=== PATIENT | female | born 1930 | race Two or more races ===

== ENCOUNTER 2017-07-05 15:05 | Inpatient (IN) | payer MEDICARE ==
[2017-07-05 16:35] LABS: % BASOPHILS 0.3 % (0.0-2.0); % EOSINOPHILS 4.3 % (0.0-5.0); % LYMPHOCYTES 12.5 % (20.0-50.0); % MONOCYTES 8.8 % (2.0-10.0); % NEUTROPHILS 74.1 % (40.0-80.0); EOSINOPHILE ABSOLUTE 0.1 Th/cmm (0.1-0.4); HEMATOCRIT 33.5 % (41.0-60); HEMOGLOBIN 11.3 gm/dL (12-16); LYMPHOCYTE ABSOLUTE 0.4 Th/cmm (1.5-3.0); MEAN CELL VOLUME 92.2 fl (81-100); MEAN CORPUSCULAR HGB CONC 33.6 pg (28.0-36.0); MONOCYTE ABSOLUTE 0.3 Th/cmm (0.3-1.0); NEUTROPHILE ABSOLUTE 2.6 Th/cmm (1.8-8.0); PLATELET COUNT 223 Th/cmm (150-400); RED BLOOD COUNT 3.63 Mil/cmm (3.80-5.20); RED CELL DISTRIBUTION WIDTH 14.6 % (11.5-20.0)
[2017-07-05 16:48] LABS: ALB/GLOB RATIO 0.6 (1.0-1.8); ALBUMIN 2.3 gm/dL (3.7-5.3); ALKALINE PHOSPHATASE 251 U/L (34-104); ANION GAP 9.1 (7.0-16.0); BILIRUBIN,TOTAL 2.6 mg/dL (0.3-1.0); BUN - UREA NITROGEN 14 mg/dL (7-25); CALCIUM SERUM 8.3 mg/dL (8.6-10.3); CARBON DIOXIDE 26.6 mEq/L (21.0-31.0); CHLORIDE 106 mEq/L (98-107); CREATININE - SERUM 0.3 mg/dL (0.6-1.2); GLUCOSE 202 mg/dL (70-105); MAGNESIUM 1.7 mg/dL (1.9-2.7); PHOSPHOROUS 2.7 mg/dL (2.5-5.0); POTASSIUM SERUM 3.7 mEq/L (3.5-5.1); SGOT 52 U/L (13-39); SGPT/ALT 67 U/L (7-52); SODIUM SERUM 138 mEq/L (136-145); TOTAL PROTEIN,SERUM 6.5 gm/dL (6.0-8.3)
[2017-07-05 16:56] LABS: WHITE BLOOD COUNT 3.4 Th/cmm (4.8-10.8)
[2017-07-05] MEDS: Dextrose 10% 1,000 ML IV SCH (17:00)
[2017-07-05 17:01] VITALS: BP 150/60
[2017-07-05 18:03] LABS: PROTHROMBIN TIME (TEST) 10.4 SECONDS (9.5-11.5)
[2017-07-05] MEDS ORDERED: Diatrizoate Meglumine/Diatri 30 mL Sol ONE (21:03)
[2017-07-06] MEDS: Dextrose 10% 1,000 ML IV SCH (06:19)
[2017-07-06 06:38] LABS: EOSINOPHILE ABSOLUTE 0.2 Th/cmm (0.1-0.4); LYMPHOCYTE ABSOLUTE 0.6 Th/cmm (1.5-3.0)
[2017-07-06 06:49] LABS: HEMATOCRIT 30.3 % (41.0-60); MEAN CELL VOLUME 92.3 fl (81-100); MEAN CORPUSCULAR HEMOGLOBIN 30.6 pg (27.0-31.0); MEAN CORPUSCULAR HGB CONC 33.1 pg (28.0-36.0); MEAN PLATELET VOLUME 8.8 fl; PLATELET COUNT 215 Th/cmm (150-400); RED BLOOD COUNT 3.28 Mil/cmm (3.80-5.20); RED CELL DISTRIBUTION WIDTH 14.9 % (11.5-20.0); WHITE BLOOD COUNT 3.7 Th/cmm (4.8-10.8)
[2017-07-06 06:50] LABS: % BASOPHILS 0.8 % (0.0-2.0); % EOSINOPHILS 6.1 % (0.0-5.0); % LYMPHOCYTES 17.4 % (20.0-50.0); % MONOCYTES 9.7 % (2.0-10.0); MONOCYTE ABSOLUTE 0.4 Th/cmm (0.3-1.0); NEUTROPHILE ABSOLUTE 2.5 Th/cmm (1.8-8.0)
[2017-07-06] MEDS ORDERED: INSULIN ASPART SLIDING SCALE 100 UNITS/ML UNIT SUBQ SCH (07:30)
--- NOTE | 2017-07-06 07:33 | Diagnostic Imaging Report ---
Portable chest x-ray HISTORY: Cough, preoperative The right lower chest is obscured by the patient's overlying contracted hand. Increased density noted in left lower hemithorax suggesting probable pleural effusion. Underlying parenchymal pathology including pneumonia and/or atelectasis cannot be excluded. A right-sided vascular catheter tip is in the region of the superior vena cava. The heart appears to be somewhat enlarged. IMPRESSION: 1. Limited exam as the right lower chest is up secured by the patient's overlying contracted hand 2. Increased density in the left lower hemithorax suggesting a pleural effusion. Underlying pneumonia and/or atelectasis cannot be excluded. 3. Cardiomegaly with atherosclerotic vascular changes
--- NOTE | 2017-07-06 07:34 | Diagnostic Imaging Report ---
Portable chest x-ray HISTORY: Shortness of breath, nasogastric tube placement Compared with a prior exam performed earlier in the day (1711 hours), a nasogastric tube extends into the region of the stomach. The right lower chest is again obscured by the patient's overlying hand. The heart remains enlarged. Suggestion of a small left pleural effusion. IMPRESSION: 1. Nasogastric tube extending into the region of the stomach 2. Cardiomegaly without johny vascular changes 3. Evidence for small left pleural effusion 4. Obscuration of the right lower chest related to the patient's overlying contracted hand.
[2017-07-06] MEDS ORDERED: [UNRECOGNIZED DRUG - OTHER] IV SCH (09:15)
[2017-07-06] MEDS ORDERED: VANCOMYCIN HCL IN DEXTROSE 5% IV SCH (09:15)
[2017-07-06 09:55] LABS: ALB/GLOB RATIO 0.5 (1.0-1.8); ALKALINE PHOSPHATASE 214 U/L (34-104); ANION GAP 9.2 (7.0-16.0); BILIRUBIN,TOTAL 1.9 mg/dL (0.3-1.0); BUN - UREA NITROGEN 11 mg/dL (7-25); CHLORIDE 103 mEq/L (98-107); CREATININE - SERUM 0.4 mg/dL (0.6-1.2); GLUCOSE 166 mg/dL (70-105); POTASSIUM SERUM 3.2 mEq/L (3.5-5.1); SGOT 49 U/L (13-39); SGPT/ALT 59 U/L (7-52); SODIUM SERUM 136 mEq/L (136-145); TOTAL PROTEIN,SERUM 5.7 gm/dL (6.0-8.3)
[2017-07-06] MEDS ORDERED: Mag Sulfate 2gm/50mL Premix 2 GM/50 ML BAG IV ONE (10:00)
[2017-07-06] MEDS: Albuterol/Ipratropium Neb 3 ML AERS HHN SCH ×3 (10:21→19:30)
[2017-07-06] MEDS ORDERED: Levofloxacin 500mg/100mL 500 MG/100 ML BAG IV ONE (10:40)
[2017-07-06] MEDS ORDERED: Morphine Sulfate 4 mg/mL 1mL Syr IVP PRN (11:00)
[2017-07-06] MEDS ORDERED: Potassium Phosphate 15 MMOLE in Sodium Chloride 0.9% 250 ML IV ONE (11:00)
[2017-07-06] MEDS ORDERED: Propofol **SURGERY USE ONLY** 20 ML IV ONE (11:09)
[2017-07-06] MEDS ORDERED: Morphine Sulfate 2 mg/mL 1mL Syr ONE (11:12)
[2017-07-06] MEDS ORDERED: Neostigmine 10mg/10mL Vial ONE (11:12)
[2017-07-06] MEDS: INSULIN ASPART SLIDING SCALE 100 UNITS/ML UNIT SUBQ SCH ×2 (12:52→18:24)
[2017-07-06] MEDS ORDERED: [UNRECOGNIZED DRUG - OTHER] IV SCH (13:00)
[2017-07-06] MEDS ORDERED: MEROPENEM IV SCH (13:00)
[2017-07-06] MEDS ORDERED: SODIUM CHLORIDE IV SCH (13:00)
[2017-07-06] MEDS: Diltiazem 30 mg Tab GT SCH ×2 (14:24→20:33)
[2017-07-06] MEDS ORDERED: TPN 10%-70% CUSTOM IV SCH (16:00)
[2017-07-06] MEDS: Meropenem 500 MG in Sodium Chloride 0.9% 50 ML IV SCH ×2 (16:24→20:32)
[2017-07-06] MEDS ORDERED: Morphine Sulfate 4 mg/mL 1mL Syr IV ONE (17:59)
[2017-07-06] MEDS ORDERED: Morphine Sulfate 2 mg/mL 1mL Syr IVP PRN (18:02)
[2017-07-07] MEDS: INSULIN ASPART SLIDING SCALE 100 UNITS/ML UNIT SUBQ SCH ×4 (00:24→18:25)
[2017-07-07] MEDS: Morphine Sulfate 4 mg/mL 1mL Syr IV PRN ×2 (00:30→13:17)
--- NOTE | 2017-07-07 01:17 | Consultation ---
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 HISTORY OF PRESENT ILLNESS: The patient is an 87-year-old female with a past medical history of severe dementia, bedbound status, atrial fibrillation, hypertension, hyperlipidemia, CHF, COPD, diabetes mellitus type 2, dysphagia, bilateral foot ulcers, worse on the left side with diagnosis of osteomyelitis, debrided by Dr. Leonard, infection with MRSA and ESBL E. coli, schizoaffective disorder, and hypertension, initially admitted to [facility] for a malfunctioning G-tube with leakage. There was some surrounding erythema. G-tube was removed and there was no surrounding erythema. G-tube site was removed and treated conservatively with antibiotics. Ultimately, the patient was put on TPN. After a long period of time, the patient's gastrocutaneous fistula was not healing well. She required long-term antibiotic because of osteomyelitis of left foot and TPN for a gastrocutaneous fistula. So she was transferred to [facility] on 06/30/2017. Unfortunately, she bled from the gastrocutaneous site profusely. There were some clots present. She required [facility] for surgical consultation. I discussed with Dr. Vazquez, surgical lead at [facility] and we agreed to transfer the patient to [facility]. PAST MEDICAL HISTORY: Includes bedbound status, atrial fibrillation, hypertension, hyperlipidemia, schizoaffective disorder, CHF, COPD, diabetes mellitus type 2, dysphagia, bilateral foot ulcers was on the left side and osteomyelitis of left foot, diagnosed recently infection with MRSA and ESBL E. coli. ALLERGIES: ALLERGIC TO ASPIRIN. MEDICATIONS: As per medication reconciliation sheet. Medications include digoxin 0.125 mg IV push daily, diltiazem 60 mg, enoxaparin 30 mg subq, Lasix 20 mg IV twice a day, albuterol, Atrovent nebulizer treatment, meropenem 500 mg IV q. 12 hours, lisinopril 10 mg IV via feeding tube, metoclopramide 10 mg via G-tube 8 hourly, and vancomycin 750 mg IV q. 12 hours. SOCIAL HISTORY: The patient lives in a nursing facility. No history of smoking, alcohol, or drug use. FAMILY HISTORY: Not available. REVIEW OF SYSTEMS: Unable to obtain. So far the patient has no fever. The patient has blood-stained drainage from the gastrocutaneous fistula. PHYSICAL EXAMINATION: VITAL SIGNS: Current vital shows temperature is 97.8 degrees Fahrenheit, pulse 78, respirations 22, blood pressure 110/60, and oxygen saturation 100% on room air. GENERAL: The patient is comfortable, lying in the bed with some flexion contractures. Very demented, unable to communicate. HEENT: Head is normocephalic, atraumatic. Oral cavity moist, pink tongue. Eyes: Mild pallor is present, no icterus. Pupils PERRLA, EOMI. NECK: Supple, no JVD, no carotid bruit. Trachea in midline. CHEST: Bilateral breath sounds. No crackles or wheezing. HEART: S1, S2 within normal limit. Regular rhythm. No murmur, no gallop. ABDOMEN: Soft, nontender, nondistended. The patient had a G-tube site, has some blood-stained drainage. It is better than before. It is already packed. There is some surrounding erythema and discoloration. EXTREMITIES: No cyanosis, no clubbing, no edema. The patient has foot ulcers, worse on the left side and on the left side the patient has a full thickness ulcer. NEUROLOGIC: Opens her eyes, but unable to communicate. SKIN: The patient has bilateral foot ulcers, worse on the left side. Full thickness ulcer. The patient also has multiple ulcers down the left elbow and right hallus. LABORATORY DATA: Current lab shows WBC of 3700, hemoglobin 10, hematocrit 30.3, platelets are 215,000, and neutrophils 66%. Sodium is 138, potassium 3.7, chloride 106, bicarbonate is 26.6, BUN is 14, creatinine 0.3, glucose is 202. LFTs reviewed. AST is 52, ALT 67, alkaline phosphatase 251. Chest x-ray, NG tube into the region of the stomach. Cardiomegaly without any vascular congestion, evidence of small left pleural effusion, ____ on left lower chest related to the patient's overlying contracted hand. IMPRESSION: 1. 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 It was profuse. Now well-controlled. 2. Osteomyelitis and complicated wound of the left heel and foot. 3. Bilateral foot ulcers. 4. 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 5. Urinary tract infection. 6. Hypertension. 7. Diabetes mellitus type 2. 8. Severe dementia. 9. Chronic obstructive pulmonary disease. 10. Congestive failure, cardiomegaly, cardiomyopathy, and atrial fibrillation. 11. Depression. 12. Schizoaffective disorder. 13. Gastroesophageal reflux disease. 14. Seizure disorder. 15. History of cataract. RECOMMENDATIONS: We are planning to close the fistula and put a new G-tube site, which can be performed under general anesthesia by surgical lead Dr. Vazquez. The other consultants will be called, Jewel Bagley, Cardiology for Afib, CHF, and cardiomyopathy. Dr. Tolentino, GI consult for dysphagia and need for G-tube, and Dr. Jean-Claude Nelson for Family Medicine. JOB# [id number] JUAN M
[2017-07-07] MEDS: Albuterol Nebulizer 2.5mg/3mL HHN SCH ×4 (01:46→18:22)
--- NOTE | 2017-07-07 01:46 | Consultation ---
DATE OF CONSULTATION: 07/06/2017 HISTORY OF PRESENT ILLNESS: This 87-year-old female was seen and examined. This patient was transferred here from [facility] with GI bleeding. The patient was admitted there with osteomyelitis uncomplicated wound on left heel and foot, bilateral foot ulcers, diabetes, peripheral vascular disease, urinary tract infection, atrial fibrillation, congestive heart failure, history of cardiomyopathy, cardiomegaly, diabetes, history of seizure disorder. The patient did have here an exploratory laparotomy, control of bleeding, NG-tube placement. PAST MEDICAL HISTORY: Not much available from the patient. REVIEW OF SYSTEMS: Not available from the patient. FAMILY HISTORY: Not available from the patient. PHYSICAL EXAMINATION: VITAL SIGNS: Heart rate was 113, blood pressure 133/69, respirations 24, temperature 98, O2 saturation 100%. SKIN: Normal. HEENT: Normocephalic. Eyes: Conjunctivae was pink. There is no icterus in the eyes: Pupils reacting to light. NECK: There was no increased jugular venous distention, no thyromegaly, no lymphadenopathy. Carotids equal on both sides. CHEST: Bilaterally symmetrical. Moved well with respiration. Respiratory movements equal on both sides. Trachea is central. There is note to percussion. Breath sounds, few basilar rales and rhonchi. CARDIOVASCULAR SYSTEM: PMI not well localized and no pulsation or thrill. No parasternal heave. S1 normal, S2 physiologic. There were no definite S3, no rub. ABDOMEN: Soft postop. EXTREMITIES: There are bilateral foot ulcers. DIAGNOSTIC STUDIES AND LABORATORY DATA: Chest x-ray showed NG in the stomach. Sodium was 136, potassium 3.2, chloride 103, CO2 of 27.0. Glucose 166, BUN 11, creatinine 0.4, calcium 8, total protein 5.7, albumin 2.0, globulin 3.7, bilirubin total 1.9, SGOT 49, SGPT 59, alkaline phosphatase 214, WBC count was 3.7, hemoglobin 10, hematocrit 30.3, platelet count was 215, cholesterol 76, triglycerides 97. EKG had revealed atrial fibrillation. IMPRESSION: Atrial fibrillation with rapid ventricular response, history of congestive heart failure, cardiomegaly, history of cardiomyopathy, hypertension, diabetes type 2, osteomyelitis uncomplicated wound on the left heel and foot, gastrointestinal bleeding, aspiration pneumonia, chronic obstructive pulmonary disease, subcutaneous fistula, urinary tract infection, seizure disorder, dementia, so she will continue present management. When heart rate goes up, we will treat it with Cardizem. Also, she may be put on Lanoxin IV. Thank you. We will follow with you as needed. JOB# [id number]
--- NOTE | 2017-07-07 02:30 | Consultation ---
DATE OF CONSULTATION: 07/06/2017 INPATIENT GASTROINTESTINAL CONSULTATION REFERRING PHYSICIAN: Dr. Caputo. REASON FOR CONSULTATION: G-tube site bleeding. HISTORY OF PRESENT ILLNESS: This is an 87-year-old female who had previously placed G-tube and there was bleeding. The patient is being seen in the recovery room after having surgery to control the bleeding. Apparently, the patient had an exploratory laparotomy with control of bleeding and a new G-tube was placed. The patient again is a poor historian. PAST MEDICAL HISTORY: Dysphagia, hypertension, atrial fibrillation, diabetes, hypercholesterolemia. PAST SURGICAL HISTORY: Exploratory laparotomy G-tube placement. FAMILY HISTORY: Noncontributory. SOCIAL HISTORY: No tobacco, alcohol or IV drug usage. ALLERGIES: ASPIRIN, PENICILLIN. CURRENT MEDICATIONS: Vancomycin, Protonix, Zofran, morphine, Reglan, meropenem, lisinopril, insulin, Lasix, Cardizem, digoxin. REVIEW OF SYSTEMS: Unobtainable. PHYSICAL EXAMINATION: VITAL SIGNS: Temperature 97.8, breathing 22, pulse of 78, blood pressure 110/60, satting 100%. GENERAL: In no apparent distress. EYES: Anicteric. Normal conjunctivae. HEENT: Normocephalic, atraumatic. Moist mucous membranes. NECK: Soft, supple. CHEST: Some coarse breath sounds. CARDIOVASCULAR: Regular rate and rhythm. ABDOMEN: Soft, nontender with an exploratory laparotomy scar and a G-tube. SKIN: Warm, dry. EXTREMITIES: Reveal no cyanosis. LABORATORY DATA: Show white count 3.7, hemoglobin 10, platelets of 215. INR is 1, BUN 11, creatinine 0.4. IMPRESSION: An 87-year-old female with GI bleeding secondary to G-tube site. The patient had exploratory laparotomy and control bleeding along with new G-tube placement. PLAN: 1. Follow H and H. 2. Continue Protonix. Thank you for allowing me to participate. Please call me if any questions. JOB# [id number]
[2017-07-07] MEDS: Diltiazem 30 mg Tab GT SCH ×3 (05:05→21:13)
[2017-07-07] MEDS: Meropenem 500 MG in Sodium Chloride 0.9% 50 ML IV SCH ×3 (05:07→21:26)
[2017-07-07 07:00] LABS: ALB/GLOB RATIO 0.6 (1.0-1.8); ALBUMIN 2.1 gm/dL (3.7-5.3); ALKALINE PHOSPHATASE 188 U/L (34-104); ANION GAP 8.6 (7.0-16.0); BILIRUBIN,TOTAL 1.5 mg/dL (0.3-1.0); BUN - UREA NITROGEN 13 mg/dL (7-25); CALCIUM SERUM 8.1 mg/dL (8.6-10.3); CARBON DIOXIDE 28.6 mEq/L (21.0-31.0); CHLORIDE 101 mEq/L (98-107); CREATININE - SERUM 0.4 mg/dL (0.6-1.2); GLUCOSE 207 mg/dL (70-105); POTASSIUM SERUM 3.2 mEq/L (3.5-5.1); SGOT 35 U/L (13-39); SGPT/ALT 45 U/L (7-52); SODIUM SERUM 135 mEq/L (136-145); TOTAL PROTEIN,SERUM 5.7 gm/dL (6.0-8.3)
[2017-07-07 07:02] LABS: % BASOPHILS 0.3 % (0.0-2.0); % EOSINOPHILS 0.4 % (0.0-5.0); % LYMPHOCYTES 6.7 % (20.0-50.0); % MONOCYTES 4.6 % (2.0-10.0); HEMATOCRIT 31.3 % (41.0-60); HEMOGLOBIN 10.6 gm/dL (12-16); LYMPHOCYTE ABSOLUTE 0.6 Th/cmm (1.5-3.0); MEAN CELL VOLUME 92.6 fl (81-100); MEAN CORPUSCULAR HEMOGLOBIN 31.4 pg (27.0-31.0); MEAN CORPUSCULAR HGB CONC 33.9 pg (28.0-36.0); MEAN PLATELET VOLUME 9.1 fl; MONOCYTE ABSOLUTE 0.4 Th/cmm (0.3-1.0); PLATELET COUNT 242 Th/cmm (150-400); RED BLOOD COUNT 3.38 Mil/cmm (3.80-5.20); RED CELL DISTRIBUTION WIDTH 14.9 % (11.5-20.0)
--- NOTE | 2017-07-07 07:30 | GI Progress Note ---
Subjective - Review of Systems Subjective: NO ACTIVE BLEEDING Objective - Results Result Diagrams: 07/07/17 06:15 07/07/17 06:15 Recent Labs: Laboratory Last Values WBC 9.0 Th/cmm (4.8-10.8) D 07/07/17 06:15 RBC 3.38 Mil/cmm (3.80-5.20) L 07/07/17 06:15 Hgb 10.6 gm/dL (12-16) L 07/07/17 06:15 Hct 31.3 % (41.0-60) L 07/07/17 06:15 MCV 92.6 fl (81-100) 07/07/17 06:15 MCH 31.4 pg (27.0-31.0) H 07/07/17 06:15 MCHC Differential 33.9 pg (28.0-36.0) 07/07/17 06:15 RDW 14.9 % (11.5-20.0) 07/07/17 06:15 Plt Count 242 Th/cmm (150-400) 07/07/17 06:15 MPV 9.1 fl 07/07/17 06:15 Neutrophils % 88.0 % (40.0-80.0) H 07/07/17 06:15 Lymphocytes % 6.7 % (20.0-50.0) L 07/07/17 06:15 Monocytes % 4.6 % (2.0-10.0) 07/07/17 06:15 Eosinophils % 0.4 % (0.0-5.0) 07/07/17 06:15 Basophils % 0.3 % (0.0-2.0) 07/07/17 06:15 PT 10.4 SECONDS (9.5-11.5) 07/05/17 17:15 INR 1.00 (0.5-1.4) 07/05/17 17:15 PTT (Actin FS) 26.6 SECONDS (26.0-38.0) 07/05/17 17:15 Sodium 135 mEq/L (136-145) L 07/07/17 06:15 Potassium 3.2 mEq/L (3.5-5.1) L 07/07/17 06:15 Chloride 101 mEq/L (98-107) 07/07/17 06:15 Carbon Dioxide 28.6 mEq/L (21.0-31.0) 07/07/17 06:15 Anion Gap 8.6 (7.0-16.0) 07/07/17 06:15 BUN 13 mg/dL (7-25) 07/07/17 06:15 Creatinine 0.4 mg/dL (0.6-1.2) L 07/07/17 06:15 Est GFR ( Amer) TNP 07/07/17 06:15 Est GFR (Non-Af Amer) TNP 07/07/17 06:15 BUN/Creatinine Ratio 32.5 07/07/17 06:15 Glucose 207 mg/dL (70-105) H 07/07/17 06:15 POC Glucose 239 MG/DL (70 - 105) H 07/07/17 05:08 Hemoglobin A1c % 5.0 % (4.0-6.0) 07/05/17 16:25 Whole Bld Lactic Acid 1.96 mmol/L (0.60-1.99) 07/07/17 06:15 Calcium 8.1 mg/dL (8.6-10.3) L 07/07/17 06:15 Phosphorus 2.4 mg/dL (2.5-5.0) L 07/06/17 06:30 Magnesium 1.5 mg/dL (1.9-2.7) L 07/06/17 06:30 Total Bilirubin 1.5 mg/dL (0.3-1.0) H 07/07/17 06:15 AST 35 U/L (13-39) 07/07/17 06:15 ALT 45 U/L (7-52) 07/07/17 06:15 Alkaline Phosphatase 188 U/L (34-104) H 07/07/17 06:15 Total Protein 5.7 gm/dL (6.0-8.3) L 07/07/17 06:15 Albumin 2.1 gm/dL (3.7-5.3) L 07/07/17 06:15 Globulin 3.6 gm/dL 07/07/17 06:15 Albumin/Globulin Ratio 0.6 (1.0-1.8) L 07/07/17 06:15 Triglycerides 97 mg/dL (<150) 07/06/17 06:30 Cholesterol 76 mg/dL (<200) 07/06/17 06:30 - Physical Exam Vitals and I&O: Vital Signs Temp 98.4 F 07/07/17 04:00 Pulse 112 07/07/17 06:59 Resp 22 07/07/17 06:59 BP 114/59 07/07/17 04:00 Pulse Ox 99 07/07/17 06:59 Intake & Output 07/06/17 07/07/17 07/07/17 18:59 06:59 18:59 Intake Total 50 100 Output Total 15 Balance 50 85 Weight (lbs) 53.07 kg 56.245 kg Intake: Intake, IV Amount 50 100 Meropenem 500 mg In 50 100 Sodium Chloride 0.9% 50 ml @ 50 mls/hr IV Q8H [facility] Rx#:[id number] Output: Gastric Drainage 15 Other: # Voids 3 # Bowel Movements 0 Weight Source Bedscale Bedscale Active Medications: Current Medications Acetaminophen (Tylenol 650mg/20.3ml Suspension) 650 mg GT Q6HR PRN PRN Reason: Fever > 101 Stop: 09/04/17 09:07 Albuterol Sulfate (Albuterol 2.5mg/3ml Neb Ud) 2.5 mg HHN Q6HRT MAI Stop: 09/05/17 00:59 Last Admin: 07/07/17 06:58 Dose: 2.5 mg [place] Oil/[place] Balsam/Trypsin (Venelex) 1 appl TP DAILY [facility] Stop: 09/05/17 08:59 Digoxin (Lanoxin) 0.125 mg IVP Q48HR MAI Stop: 09/04/17 09:59 Last Admin: 07/06/17 10:55 Dose: Not Given Diltiazem HCl (Cardizem) 60 mg GT Q8HR MAI Stop: 09/04/17 12:59 Last Admin: 07/07/17 05:05 Dose: Not Given Furosemide (Lasix) 20 mg IVP Q12HR MAI Stop: 09/04/17 20:59 Last Admin: 07/06/17 20:31 Dose: 20 mg Vancomycin HCl 750 mg/ Sodium (Chloride) 250 mls @ 167 mls/hr IV Q24HR@0900 [facility] Stop: 09/04/17 09:59 Last Admin: 07/06/17 16:30 Dose: Not Given Meropenem 500 mg/ Sodium (Chloride) 50 mls @ 50 mls/hr IV Q8H MAI Stop: 09/04/17 12:59 Last Infusion: 07/07/17 05:37 Dose: Infused Multivitamins/Minerals 10 ml/Dextrose/ Amino Acids/Electrolytes/ Fat Emulsion Intravenous 1,200 mls @ 50 mls/hr IV .Q24H MAI Stop: 09/04/17 15:59 Last Admin: 07/06/17 16:07 Dose: 50 mls/hr Insulin Aspart (Novolog Insulin Sliding Scale) 0 units SUBQ Q6HR MAI PRN Reason: Protocol Stop: 09/04/17 11:59 Last Admin: 07/07/17 05:10 Dose: 4 units Lisinopril (Zestril) 10 mg GT Q12HR MAI Stop: 09/04/17 20:59 Last Admin: 07/06/17 20:33 Dose: Not Given Metoclopramide HCl (Reglan) 10 mg GT Q8HR MAI Stop: 09/04/17 12:59 Last Admin: 07/07/17 05:09 Dose: Not Given Miscellaneous (Vancomycin Iv Per Pharmacy) 1 ea DAILY MAI Stop: 09/05/17 08:59 Miscellaneous (Tpn Per Pharmacy) 1 [facility] PRN PRN PRN Reason: PROTOCOL Stop: 09/03/17 22:36 Morphine Sulfate (Morphine) 2 mg IV Q6H PRN PRN Reason: pain Stop: 09/04/17 18:01 Last Admin: 07/07/17 00:30 Dose: 2 mg Pantoprazole Sodium (Protonix) 40 mg IVP BID MAI Stop: 09/03/17 21:59 Last Admin: 07/06/17 18:16 Dose: 40 mg - Procedures Procedures: Procedures Procedure Code Date EMERGENCY DEPT VISIT 14545 05/14/11 OTHER GROUP THERAPY 94.44 05/14/11 RECREATIONAL THERAPY 93.81 05/14/11 Assessment/Plan - Assessment Assessment: 87 YO FEMALE WITH DYPHAGIA HAS GT S/P SURGERY FOR GT SITE BLEEDING NO FURTHER BLEEDING 1.FOLLOW H/H 2.CONT POST OP CARE 3.TUBE FEEDS PER SURGEON
[2017-07-07] MEDS ORDERED: Diltiazem 5 mg/mL 5mL Vial IVP PRN (07:53)
[2017-07-07] MEDS ORDERED: Potassium Chloride Elixir 20 mEq /15 mL UDC GT ONE (08:53)
[2017-07-07] MEDS ORDERED: Venelex 60gm Tube TP SCH (09:00)
[2017-07-07] MEDS: Venelex 60gm Tube TP SCH (09:33)
--- NOTE | 2017-07-07 09:41 | Infectious Disease Prog Note ---
Infectious Disease Subjective - Review of Systems Service Date: 07/07/17 Subjective: GC fistula repaired and new Gtube was put in. started on G tube feeding, Infectious Disease Objective - Results Result Diagrams: 07/07/17 06:15 07/07/17 06:15 Recent Labs: Laboratory Last Values WBC 9.0 Th/cmm (4.8-10.8) D 07/07/17 06:15 RBC 3.38 Mil/cmm (3.80-5.20) L 07/07/17 06:15 Hgb 10.6 gm/dL (12-16) L 07/07/17 06:15 Hct 31.3 % (41.0-60) L 07/07/17 06:15 MCV 92.6 fl (81-100) 07/07/17 06:15 MCH 31.4 pg (27.0-31.0) H 07/07/17 06:15 MCHC Differential 33.9 pg (28.0-36.0) 07/07/17 06:15 RDW 14.9 % (11.5-20.0) 07/07/17 06:15 Plt Count 242 Th/cmm (150-400) 07/07/17 06:15 MPV 9.1 fl 07/07/17 06:15 Neutrophils % 88.0 % (40.0-80.0) H 07/07/17 06:15 Lymphocytes % 6.7 % (20.0-50.0) L 07/07/17 06:15 Monocytes % 4.6 % (2.0-10.0) 07/07/17 06:15 Eosinophils % 0.4 % (0.0-5.0) 07/07/17 06:15 Basophils % 0.3 % (0.0-2.0) 07/07/17 06:15 PT 10.4 SECONDS (9.5-11.5) 07/05/17 17:15 INR 1.00 (0.5-1.4) 07/05/17 17:15 PTT (Actin FS) 26.6 SECONDS (26.0-38.0) 07/05/17 17:15 Sodium 135 mEq/L (136-145) L 07/07/17 06:15 Potassium 3.2 mEq/L (3.5-5.1) L 07/07/17 06:15 Chloride 101 mEq/L (98-107) 07/07/17 06:15 Carbon Dioxide 28.6 mEq/L (21.0-31.0) 07/07/17 06:15 Anion Gap 8.6 (7.0-16.0) 07/07/17 06:15 BUN 13 mg/dL (7-25) 07/07/17 06:15 Creatinine 0.4 mg/dL (0.6-1.2) L 07/07/17 06:15 Est GFR ( Amer) TNP 07/07/17 06:15 Est GFR (Non-Af Amer) TNP 07/07/17 06:15 BUN/Creatinine Ratio 32.5 07/07/17 06:15 Glucose 207 mg/dL (70-105) H 07/07/17 06:15 POC Glucose 239 MG/DL (70 - 105) H 07/07/17 05:08 Hemoglobin A1c % 5.0 % (4.0-6.0) 07/05/17 16:25 Whole Bld Lactic Acid 1.96 mmol/L (0.60-1.99) 07/07/17 06:15 Calcium 8.1 mg/dL (8.6-10.3) L 07/07/17 06:15 Phosphorus 2.6 mg/dL (2.5-5.0) 07/07/17 06:15 Magnesium 1.6 mg/dL (1.9-2.7) L 07/07/17 06:15 Total Bilirubin 1.5 mg/dL (0.3-1.0) H 07/07/17 06:15 AST 35 U/L (13-39) 07/07/17 06:15 ALT 45 U/L (7-52) 07/07/17 06:15 Alkaline Phosphatase 188 U/L (34-104) H 07/07/17 06:15 Total Protein 5.7 gm/dL (6.0-8.3) L 07/07/17 06:15 Albumin 2.1 gm/dL (3.7-5.3) L 07/07/17 06:15 Globulin 3.6 gm/dL 07/07/17 06:15 Albumin/Globulin Ratio 0.6 (1.0-1.8) L 07/07/17 06:15 Triglycerides 97 mg/dL (<150) 07/06/17 06:30 Cholesterol 76 mg/dL (<200) 07/06/17 06:30 - Physical Exam Vitals and I&O: Vital Signs Temp 99.9 F 07/07/17 07:51 Pulse 65 07/07/17 09:01 Resp 21 07/07/17 07:51 BP 128/66 07/07/17 09:01 Pulse Ox 100 07/07/17 07:51 Intake & Output 07/06/17 07/07/17 07/07/17 18:59 06:59 18:59 Intake Total 50 100 Output Total 15 Balance 50 85 Weight (lbs) 53.07 kg 56.245 kg Intake: Intake, IV Amount 50 100 Meropenem 500 mg In 50 100 Sodium Chloride 0.9% 50 ml @ 50 mls/hr IV Q8H [facility] Rx#:[id number] Output: Gastric Drainage 15 Other: # Voids 3 # Bowel Movements 0 Weight Source Bedscale Bedscale Active Medications: Current Medications Acetaminophen (Tylenol 650mg/20.3ml Suspension) 650 mg GT Q6HR PRN PRN Reason: Fever > 101 Stop: 09/04/17 09:07 Last Admin: 07/07/17 09:01 Dose: 650 mg Albuterol Sulfate (Albuterol 2.5mg/3ml Neb Ud) 2.5 mg HHN Q6HRT MAI Stop: 09/05/17 00:59 Last Admin: 07/07/17 06:58 Dose: 2.5 mg [place] Oil/Pakistani Balsam/Trypsin (Venelex) 1 appl TP DAILY [facility]I Stop: 09/05/17 08:59 Last Admin: 07/07/17 09:33 Dose: 1 appl Digoxin (Lanoxin) 0.125 mg IVP Q48HR [facility] Stop: 09/04/17 09:59 Last Admin: 07/06/17 10:55 Dose: Not Given Diltiazem HCl (Cardizem) 60 mg GT Q8HR [facility] Stop: 09/04/17 12:59 Last Admin: 07/07/17 05:05 Dose: Not Given Diltiazem HCl (Cardizem) 5 mg IVP Q6H PRN PRN Reason: HR ABOVE 120 Stop: 07/12/17 07:52 Furosemide (Lasix) 20 mg IVP Q12HR [facility] Stop: 09/04/17 20:59 Last Admin: 07/07/17 09:01 Dose: 20 mg Vancomycin HCl 750 mg/ Sodium (Chloride) 250 mls @ 167 mls/hr IV Q24HR@0900 [facility] Stop: 09/04/17 09:59 Last Admin: 07/07/17 09:31 Dose: 167 mls/hr Meropenem 500 mg/ Sodium (Chloride) 50 mls @ 50 mls/hr IV Q8H [facility] Stop: 09/04/17 12:59 Last Infusion: 07/07/17 05:37 Dose: Infused Multivitamins/Minerals 10 ml/Dextrose/ Amino Acids/Electrolytes/ Fat Emulsion Intravenous 1,200 mls @ 50 mls/hr IV .Q24H [facility] Stop: 09/04/17 15:59 Last Admin: 07/06/17 16:07 Dose: 50 mls/hr Magnesium Sulfate (Magnesium Sulfate Premix) 2 gm in 50 mls @ 25 mls/hr IV ONCE ONE Stop: 07/07/17 11:59 Potassium Chloride (Potassium Chloride) 20 meq in 100 mls @ 50 mls/hr IV Q2H [facility] Stop: 07/07/17 13:59 Insulin Aspart (Novolog Insulin Sliding Scale) 0 units SUBQ Q6HR [facility] PRN Reason: Protocol Stop: 09/04/17 11:59 Last Admin: 07/07/17 05:10 Dose: 4 units Lisinopril (Zestril) 10 mg GT Q12HR [facility] Stop: 09/04/17 20:59 Last Admin: 07/07/17 09:01 Dose: 10 mg Metoclopramide HCl (Reglan) 10 mg GT Q8HR [facility] Stop: 09/04/17 12:59 Last Admin: 07/07/17 05:09 Dose: Not Given Miscellaneous (Vancomycin Iv Per Pharmacy) 1 ea MC DAILY [facility] Stop: 09/05/17 08:59 Miscellaneous (Tpn Per Pharmacy) 1 ea [facility] PRN PRN PRN Reason: PROTOCOL Stop: 09/03/17 22:36 Morphine Sulfate (Morphine) 2 mg IV Q6H PRN PRN Reason: pain Stop: 09/04/17 18:01 Last Admin: 07/07/17 00:30 Dose: 2 mg Pantoprazole Sodium (Protonix) 40 mg IVP BID [facility] Stop: 09/03/17 21:59 Last Admin: 07/07/17 09:01 Dose: 40 mg General: no acute distress, well developed, well nourished HEENT: atraumatic, normocephalic, PERRLA, EOMI Neck: supple, no thyromegaly Cardiovascular: S1S2, regular Lungs: clear to auscultation bilaterally, clear to percussion Abdomen: soft, other (G tube.), no tender, no distended Extremities: other (bilateral foot and heel wounds.), no cyanosis, no clubbing, no edema Neurological: other (Open eyes.) - Procedures Procedures: Procedures Procedure Code Date EMERGENCY DEPT VISIT 26307 05/14/11 OTHER GROUP THERAPY 94.44 05/14/11 RECREATIONAL THERAPY 93.81 05/14/11 Infectious Disease Assmt/Plan - Assessment Assessment: 1. 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 New G-tube was placed in. 2. Osteomalacia complicated wound of the left heel and foot. 3. Bilateral foot ulcers. 4. UTI. 5. Up the wall cellulitis. 6. Hypertension. 7. Diabetes mellitus type 2. 8. Severe dementia. 9. COPD. 10. CHF, cardiomyopathy, atrial fibrillation. 11. Depression. 12. Schizoaffective disorder. 13. Gastroesophageal reflux disease. 14. Seizure disorder. 15. History of cataract. - Plan Plan: Continue vancomycin and meropenem. DC plan back to [facility]. Nutritional Asmnt/Malnutr-PDOC - Dietary Evaluation Malnutrition Findings (Please click <Entered> for more info): Nutritional Asmnt/Malnutrition Start: 07/06/17 15: 40 Text: Status: Complete Freq: Document 07/06/17 15:55 LCHENG (Rec: 07/06/17 16:09 LCHEN [email or web address]) Nutritional Asmnt/Malnutrition Patient General Information Nutritional Screening High Risk Diagnosis osteomyelitis, PNA, Gtube infection and fustula Pertinent Medical Hx/Surgical Hx no H&P at this time Subjective Information Pt had Gtube replacement today per nurse note. TPN started this afternoon. Current Diet Order/ Nutrition Support TPN D15% AA5% Lipid 20% 200ml at 50ml/hr Pertinent Medications lasix, novolog, reglan, k phos , vancomycin Pertinent Labs 07/06 K 3.2, Cr 0.4, glucose 166 , POC 172, Ca 8.0 Nutritional Hx/Data Height 1.47 m Height (Calculated Centimeters) 147.3 Current Weight (lbs) 53.07 kg Weight (Calculated Kilograms) 53.1 Weight (Calculated Grams) 95371.3 [place] Body Weight 96 Body Mass Index (BMI) 24.4 Weight Status Approriate GI Symptoms GI Symptoms None Last BM 07/05 Difficult in: None Skin Integrity/Comment: pressure area to buttocks, right foot, decubitus to left foot, reddened to right elbow Current %PO Negligible < 25% Estimated Nutritional Goals BEE in Kcals: Using Current wt Calories/Kcals/Kg 25-30 Kcals Calculated 3605-7211 Protein: Using Current wt Protein g/k-1.2 Protein Calculated 53-63 Fluid: ml 1325-1590ml (1ml/kcal) Nutritional Problem 1. Problem Problem altered nutrition related labs Etiology electrolytes imbalanced, endocrine dysfunction Signs/Symptoms: K 3.2, Cr 0.4, glucose 166, POC 172, Ca 8.0 Intervention/Recommendation Comments 1. Continue with current TPN regimen. It provides 1252kcal, 180g CHO (2.35mg/kg/min) and 60g protein, meeting 95% of calorie needs and 100% of protein needs. 2. If tube feeding needed, RD availeble for consult. 3. Monitor nutrition support, wt, labs and skin integrity 4. F/U high risk in 2 days, 07/08 Expected Outcomes/Goals Expected Outcomes/Goals 1. Pt to meet at least 75% of nutritional needs via nutrition support with tolerance 2. Wt stability, skin to remain intact, labs to approach WNL.
[2017-07-07] MEDS ORDERED: KCL 20mEq/100mL Premix 20 MEQ/100 ML PIGGYBACK IV SCH (10:00)
[2017-07-07] MEDS ORDERED: Mag Sulfate 2gm/50mL Premix 2 GM/50 ML BAG IV ONE (10:00)
--- NOTE | 2017-07-07 12:28 | Consultation ---
DATE OF CONSULTATION: 07/06/2017 SURGICAL CONSULTATION REFERRING PHYSICIAN: Dr. John Caputo. REASON FOR CONSULTATION: Bleeding from gastrocutaneous fistula. Thank you for referring this patient to me. HISTORY OF PRESENT ILLNESS: This is an 87-year-old female with a G-tube, which started bleeding at [facility]. She has history of atrial fibrillation, hypertension, hyperlipidemia, CHF, COPD, diabetes type 2, dysphagia requiring G-tube placement. On admission here, the laboratory studies showed the WBC to be normal, hemoglobin had gone up to 10 grams following transfusion of 2 units of packed cells prior to transfer from [facility]. PHYSICAL EXAMINATION: GENERAL: The patient is unable to furnish any information, but she is bedridden. ABDOMEN: Shows fistula with some gastric fluid oozing out of it. PLAN: The patient is to undergo exploration and control of bleeding and placement of new gastrostomy feeding tube. Consent has been given by the family for the procedure. JOB# [id number]
--- NOTE | 2017-07-07 14:37 | Operative Report ---
DATE OF SURGERY: 07/06/2017 PREOPERATIVE DIAGNOSES: 1. Bleeding gastrostomy site (gastrocutaneous fistula). 2. Diabetes mellitus. 3. Chronic obstructive pulmonary disease. 4. Hypertension. POSTOPERATIVE DIAGNOSES: 1. Bleeding gastrostomy site (gastrocutaneous fistula). 2. Diabetes mellitus. 3. Chronic obstructive pulmonary disease. 4. Hypertension. OPERATION DONE: Exploratory laparotomy with: 1. Lysis of adhesions. 2. Placement of Janeway gastrostomy. 3. Closure of gastric fistula. ESTIMATED BLOOD LOSS: 20 mL. SURGEON: Tamica Vazquez MD ANESTHESIA: General. ANESTHESIOLOGIST: Jonnie. DESCRIPTION OF PROCEDURE: The patient was given general anesthesia. The abdomen was prepped with Betadine and draped in appropriate manner. A midline incision was made. Bleeders were electrocoagulated. The abdominal cavity was entered and the adhesion of the previous gastrostomy was lysed from the abdominal wall. Search for bleeding was found and this was sutured at the site of the gastrostomy opening. A 3-0 silk was used for this purpose. A SHARON instrument was then used to make a gastric tube on the anterior wall of the stomach. The staple line was reinforced with running suture of 3-0 silk and an antireflux procedure was done inverting the base of the gastric tube with utilizing interrupted sutures of 3-0 silk. About 2 inches of the gastric tube was then brought out in the left upper quadrant of the abdomen for the stoma site. Feeding tube 20-Kiswahili was then inserted into the stomach and the balloon was filled with 10 mL of saline. The stomach was sutured to the anterior abdominal wall utilizing interrupted sutures of 3-0 silk to prevent dislodgement. The abdominal incision was closed with running suture of #1 PDS and the skin with subcuticular suture of 4-0 Vicryl. The tip of the gastric tube was then transected and sutured to the skin with a running suture of 4-0 Vicryl. The patient tolerated the procedure well. [facility]# [id number]
[2017-07-07] MEDS ORDERED: TPN 10%-70% CUSTOM IV SCH (16:00)
--- NOTE | 2017-07-07 18:21 | General Progress Note ---
Subjective - Review of Systems Service Date: 07/07/17 Subjective: Patient seen and examined resting comfortably breathing better no new concern reported Objective - Results Result Diagrams: 07/07/17 06:15 07/07/17 06:15 Recent Labs: Laboratory Last Values WBC 9.0 Th/cmm (4.8-10.8) D 07/07/17 06:15 RBC 3.38 Mil/cmm (3.80-5.20) L 07/07/17 06:15 Hgb 10.6 gm/dL (12-16) L 07/07/17 06:15 Hct 31.3 % (41.0-60) L 07/07/17 06:15 MCV 92.6 fl (81-100) 07/07/17 06:15 MCH 31.4 pg (27.0-31.0) H 07/07/17 06:15 MCHC Differential 33.9 pg (28.0-36.0) 07/07/17 06:15 RDW 14.9 % (11.5-20.0) 07/07/17 06:15 Plt Count 242 Th/cmm (150-400) 07/07/17 06:15 MPV 9.1 fl 07/07/17 06:15 Neutrophils % 88.0 % (40.0-80.0) H 07/07/17 06:15 Lymphocytes % 6.7 % (20.0-50.0) L 07/07/17 06:15 Monocytes % 4.6 % (2.0-10.0) 07/07/17 06:15 Eosinophils % 0.4 % (0.0-5.0) 07/07/17 06:15 Basophils % 0.3 % (0.0-2.0) 07/07/17 06:15 PT 10.4 SECONDS (9.5-11.5) 07/05/17 17:15 INR 1.00 (0.5-1.4) 07/05/17 17:15 PTT (Actin FS) 26.6 SECONDS (26.0-38.0) 07/05/17 17:15 Sodium 135 mEq/L (136-145) L 07/07/17 06:15 Potassium 3.2 mEq/L (3.5-5.1) L 07/07/17 06:15 Chloride 101 mEq/L (98-107) 07/07/17 06:15 Carbon Dioxide 28.6 mEq/L (21.0-31.0) 07/07/17 06:15 Anion Gap 8.6 (7.0-16.0) 07/07/17 06:15 BUN 13 mg/dL (7-25) 07/07/17 06:15 Creatinine 0.4 mg/dL (0.6-1.2) L 07/07/17 06:15 Est GFR ( Amer) TNP 07/07/17 06:15 Est GFR (Non-Af Amer) TNP 07/07/17 06:15 BUN/Creatinine Ratio 32.5 07/07/17 06:15 Glucose 207 mg/dL (70-105) H 07/07/17 06:15 POC Glucose 278 MG/DL (70 - 105) H 07/07/17 13:05 Hemoglobin A1c % 5.0 % (4.0-6.0) 07/05/17 16:25 Whole Bld Lactic Acid 1.96 mmol/L (0.60-1.99) 07/07/17 06:15 Calcium 8.1 mg/dL (8.6-10.3) L 07/07/17 06:15 Phosphorus 2.6 mg/dL (2.5-5.0) 07/07/17 06:15 Magnesium 1.6 mg/dL (1.9-2.7) L 07/07/17 06:15 Total Bilirubin 1.5 mg/dL (0.3-1.0) H 07/07/17 06:15 AST 35 U/L (13-39) 07/07/17 06:15 ALT 45 U/L (7-52) 07/07/17 06:15 Alkaline Phosphatase 188 U/L (34-104) H 07/07/17 06:15 Total Protein 5.7 gm/dL (6.0-8.3) L 07/07/17 06:15 Albumin 2.1 gm/dL (3.7-5.3) L 07/07/17 06:15 Globulin 3.6 gm/dL 07/07/17 06:15 Albumin/Globulin Ratio 0.6 (1.0-1.8) L 07/07/17 06:15 Prealbumin 6 mg/dL (9-32) L 07/06/17 06:30 Triglycerides 97 mg/dL (<150) 07/06/17 06:30 Cholesterol 76 mg/dL (<200) 07/06/17 06:30 - Physical Exam Vitals and I&O: Vital Signs Temp 97.9 F 07/07/17 12:10 Pulse 80 07/07/17 14:27 Resp 22 07/07/17 13:16 BP 106/78 07/07/17 12:10 Pulse Ox 98 07/07/17 13:16 Intake & Output 07/06/17 07/07/17 07/07/17 18:59 06:59 18:59 Intake Total 50 100 Output Total 15 Balance 50 85 Weight (lbs) 53.07 kg 56.245 kg Intake: Intake, IV Amount 50 100 Meropenem 500 mg In 50 100 Sodium Chloride 0.9% 50 ml @ 50 mls/hr IV Q8H [facility] Rx#:[id number] Output: Gastric Drainage 15 Other: # Voids 3 # Bowel Movements 0 Weight Source Bedscale Bedscale Active Medications: Current Medications Acetaminophen (Tylenol 650mg/20.3ml Suspension) 650 mg GT Q6HR PRN PRN Reason: Fever > 101 Stop: 09/04/17 09:07 Last Admin: 07/07/17 09:01 Dose: 650 mg Albuterol Sulfate (Albuterol 2.5mg/3ml Neb Ud) 2.5 mg HHN Q6HRT [facility] Stop: 09/05/17 00:59 Last Admin: 07/07/17 13:16 Dose: 2.5 mg [place] Oil/[place]ian Balsam/Trypsin (Venelex) 1 appl TP DAILY [facility] Stop: 09/05/17 08:59 Last Admin: 07/07/17 09:33 Dose: 1 appl Digoxin (Lanoxin) 0.125 mg IVP Q48HR [facility] Stop: 09/04/17 09:59 Last Admin: 07/06/17 10:55 Dose: Not Given Diltiazem HCl (Cardizem) 60 mg GT Q8HR [facility] Stop: 09/04/17 12:59 Last Admin: 07/07/17 14:27 Dose: 60 mg Diltiazem HCl (Cardizem) 5 mg IVP Q6H PRN PRN Reason: HR ABOVE 120 Stop: 07/12/17 07:52 Furosemide (Lasix) 20 mg IVP Q12HR [facility] Stop: 09/04/17 20:59 Last Admin: 07/07/17 09:01 Dose: 20 mg Vancomycin HCl 750 mg/ Sodium (Chloride) 250 mls @ 167 mls/hr IV Q24HR@0900 [facility] Stop: 09/04/17 09:59 Last Admin: 07/07/17 09:31 Dose: 167 mls/hr Meropenem 500 mg/ Sodium (Chloride) 50 mls @ 50 mls/hr IV Q8H [facility] Stop: 09/04/17 12:59 Last Admin: 07/07/17 13:33 Dose: 50 mls/hr Multivitamins/Minerals 10 ml/Dextrose/ Amino Acids/Electrolytes 1,680 mls @ 70 mls/hr IV .Q24H [facility] Stop: 07/08/17 15:59 Insulin Aspart (Novolog Insulin Sliding Scale) 0 units SUBQ Q6HR [facility] PRN Reason: Protocol Stop: 09/04/17 11:59 Last Admin: 07/07/17 13:18 Dose: 6 units Lisinopril (Zestril) 10 mg GT Q12HR [facility] Stop: 09/04/17 20:59 Last Admin: 07/07/17 09:01 Dose: 10 mg Metoclopramide HCl (Reglan) 10 mg GT Q8HR [facility] Stop: 09/04/17 12:59 Last Admin: 07/07/17 13:18 Dose: 10 mg Miscellaneous (Vancomycin Iv Per Pharmacy) 1 ea DAILY [facility] Stop: 09/05/17 08:59 Miscellaneous (Tpn Per Pharmacy) 1 [facility] PRN PRN PRN Reason: PROTOCOL Stop: 09/03/17 22:36 Morphine Sulfate (Morphine) 2 mg IV Q6H PRN PRN Reason: pain Stop: 09/04/17 18:01 Last Admin: 07/07/17 13:17 Dose: 2 mg Mupirocin (Bactroban Oint) 1 appl NS BID [facility] Stop: 07/12/17 09:01 Last Admin: 07/07/17 18:08 Dose: 1 appl Pantoprazole Sodium (Protonix) 40 mg IVP BID [facility] Stop: 09/03/17 21:59 Last Admin: 07/07/17 18:08 Dose: 40 mg Cardiovascular: Regular rate Lungs: Other (rales) Abdomen: Soft - Procedures Procedures: Procedures Procedure Code Date BYPASS STOMACH TO CUTANEOUS, OPEN APPROACH [id number] 07/05/17 EMERGENCY DEPT VISIT 91906 05/14/11 FREEING OF BOWEL ADHESION 91369 07/05/17 INTRODUCTION OF OTH THERAP SUBST INTO UP GI, PERC APPROACH [id number] 07/05/17 OTHER GROUP THERAPY 94.44 05/14/[address] PL[address] GASTROSTOMY TUBE 14361 07/05/17 RECREATIONAL THERAPY 93.81 05/14/11 RELEASE STOMACH, OPEN APPROACH [id number] 07/05/17 STOMACH SURGERY PROCEDURE 87439 07/05/17 Assessment/Plan - Assessment Assessment: GI Bleed Pneumonia Left foot osteomyelitis Dysphagia 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 - Plan Plan: GT feeding started Taper TPN IV antibiotics Follow up labs in am Plan of care discussed with nursing staff Nutritional Asmnt/Malnutr-PDOC - Dietary Evaluation Malnutrition Findings (Please click <Entered> for more info): Nutritional Asmnt/Malnutrition Start: 07/06/17 15: 40 Text: Status: Complete Freq: Document 07/06/17 15:55 HENG (Rec: 07/06/17 16:09 LCHENG [email or web address]) Nutritional Asmnt/Malnutrition Patient General Information Nutritional Screening High Risk Diagnosis osteomyelitis, PNA, Gtube infection and fustula Pertinent Medical Hx/Surgical Hx no H&P at this time Subjective Information Pt had Gtube replacement today per nurse note. TPN started this afternoon. Current Diet Order/ Nutrition Support TPN D15% AA5% Lipid 20% 200ml at 50ml/hr Pertinent Medications lasix, novolog, reglan, k phos , vancomycin Pertinent Labs 07/06 K 3.2, Cr 0.4, glucose 166 , POC 172, Ca 8.0 Nutritional Hx/Data Height 1.47 m Height (Calculated Centimeters) 147.3 Current Weight (lbs) 53.07 kg Weight (Calculated Kilograms) 53.1 Weight (Calculated Grams) 78854.3 [place] Body Weight 96 Body Mass Index (BMI) 24.4 Weight Status Approriate GI Symptoms GI Symptoms None Last BM 07/05 Difficult in: None Skin Integrity/Comment: pressure area to buttocks, right foot, decubitus to left foot, reddened to right elbow Current %PO Negligible < 25% Estimated Nutritional Goals BEE in Kcals: Using Current wt Calories/Kcals/Kg 25-30 Kcals Calculated 7590-3498 Protein: Using Current wt Protein g/k-1.2 Protein Calculated 53-63 Fluid: ml 1325-1590ml (1ml/kcal) Nutritional Problem 1. Problem Problem altered nutrition related labs Etiology electrolytes imbalanced, endocrine dysfunction Signs/Symptoms: K 3.2, Cr 0.4, glucose 166, POC 172, Ca 8.0 Intervention/Recommendation Comments 1. Continue with current TPN regimen. It provides 1252kcal, 180g CHO (2.35mg/kg/min) and 60g protein, meeting 95% of calorie needs and 100% of protein needs. 2. If tube feeding needed, RD availeble for consult. 3. Monitor nutrition support, wt, labs and skin integrity 4. F/U high risk in 2 days, 5/ 3 Expected Outcomes/Goals Expected Outcomes/Goals 1. Pt to meet at least 75% of nutritional needs via nutrition support with tolerance 2. Wt stability, skin to remain intact, labs to approach WNL.
--- NOTE | 2017-07-07 19:02 | Consultation ---
DATE OF CONSULTATION: REASON FOR CONSULT: Medical management. HISTORY OF PRESENT ILLNESS: This is 87-year-old female with underlying history of multiple complex medical issues history including sepsis, osteomyelitis, pneumonia gastrocutaneous fistula, who was at [facility] where she sustained a GI bleed. So, the patient was transferred to [facility] for further evaluation and treatments. The patient was seen by Surgery and underwent a surgical gastrostomy tube placement. The patient is also on intermittent suction through NG. The patient is awake, but nonverbal, has underlying advanced dementia. PAST MEDICAL HISTORY: Recent pneumonia, osteomyelitis, sepsis, dysphagia, hypertension, advanced dementia. PAST SURGICAL HISTORY: G-tube placement in the past. FAMILY HISTORY: Noncontributory. SOCIAL HISTORY: No reported alcohol or tobacco use. CURRENT MEDICATIONS: Protonix, TPN, vancomycin, meropenem, Reglan, Lasix, Cardizem, digoxin, DuoNeb. REVIEW OF SYSTEMS: Unobtainable due to the patient's underlying altered mental status. PHYSICAL EXAMINATION: VITAL SIGNS: Temperature 98.0, pulse 113, respirations 19, blood pressure 113/69. HEART: Tachycardia noted. LUNGS: Bilateral rales noted. ABDOMEN: Soft, no distention, no guarding. NEUROLOGIC: The patient is awake, but severely confused, does not follow command. AVAILABLE LABORATORY DATA: WBC 3.7, hemoglobin 10.0, hematocrit 30.3. Sodium 130, potassium 3.2, BUN 11, creatinine 0.4, hemoglobin A1c 5.0, magnesium 1.3, AST 14, ALT 59, alkaline phosphatase 214, triglyceride 97. Chest x-ray: No acute significant findings. ASSESSMENT: 1. Gastrointestinal bleed. 2. Gastrocutaneous fistula. 3. Sepsis. 4. Pneumonia. 5. Chronic atrial fibrillation. 6. Chronic systolic heart failure. 7. Advanced dementia. PLAN: The patient is admitted to tele unit, seen by General Surgery, status post surgical gastrostomy replacement, on intermittent NG suction, IV vancomycin, IV meropenem. Monitor H and H. Monitor for bleeding. Nebulized treatment will be given. Morphine as needed for distress. Followup labs tomorrow morning. Multispecialty team is following. Plan of care discussed with nursing staff. Overall prognosis is very poor. JOB# [id number]
[2017-07-08] MEDS: INSULIN ASPART SLIDING SCALE 100 UNITS/ML UNIT SUBQ SCH ×4 (00:13→18:24)
[2017-07-08] MEDS: Albuterol Nebulizer 2.5mg/3mL HHN SCH ×4 (00:14→19:04)
[2017-07-08] MEDS: Morphine Sulfate 4 mg/mL 1mL Syr IV PRN ×2 (01:34→21:23)
[2017-07-08] MEDS: Diltiazem 30 mg Tab GT SCH ×3 (05:10→21:23)
[2017-07-08] MEDS: Meropenem 500 MG in Sodium Chloride 0.9% 50 ML IV SCH ×3 (05:13→21:22)
[2017-07-08 06:02] LABS: ANION GAP 8.4 (7.0-16.0); BUN - UREA NITROGEN 18 mg/dL (7-25); CALCIUM SERUM 7.8 mg/dL (8.6-10.3); CARBON DIOXIDE 27.5 mEq/L (21.0-31.0); CHLORIDE 105 mEq/L (98-107); CREATININE - SERUM 0.4 mg/dL (0.6-1.2); GLUCOSE 245 mg/dL (70-105); PHOSPHOROUS 2.5 mg/dL (2.5-5.0); POTASSIUM SERUM 3.9 mEq/L (3.5-5.1); SODIUM SERUM 137 mEq/L (136-145)
--- NOTE | 2017-07-08 08:57 | General Progress Note ---
Subjective - Review of Systems Service Date: 07/08/17 Events since last encounter: tolerating feedings, increase to 50 cc dressings dry Objective - Results Result Diagrams: 07/07/17 06:15 07/08/17 05:15 Recent Labs: Laboratory Last Values WBC 9.0 Th/cmm (4.8-10.8) D 07/07/17 06:15 RBC 3.38 Mil/cmm (3.80-5.20) L 07/07/17 06:15 Hgb 10.6 gm/dL (12-16) L 07/07/17 06:15 Hct 31.3 % (41.0-60) L 07/07/17 06:15 MCV 92.6 fl (81-100) 07/07/17 06:15 MCH 31.4 pg (27.0-31.0) H 07/07/17 06:15 MCHC Differential 33.9 pg (28.0-36.0) 07/07/17 06:15 RDW 14.9 % (11.5-20.0) 07/07/17 06:15 Plt Count 242 Th/cmm (150-400) 07/07/17 06:15 MPV 9.1 fl 07/07/17 06:15 Neutrophils % 88.0 % (40.0-80.0) H 07/07/17 06:15 Lymphocytes % 6.7 % (20.0-50.0) L 07/07/17 06:15 Monocytes % 4.6 % (2.0-10.0) 07/07/17 06:15 Eosinophils % 0.4 % (0.0-5.0) 07/07/17 06:15 Basophils % 0.3 % (0.0-2.0) 07/07/17 06:15 PT 10.4 SECONDS (9.5-11.5) 07/05/17 17:15 INR 1.00 (0.5-1.4) 07/05/17 17:15 PTT (Actin FS) 26.6 SECONDS (26.0-38.0) 07/05/17 17:15 Sodium 137 mEq/L (136-145) 07/08/17 05:15 Potassium 3.9 mEq/L (3.5-5.1) 07/08/17 05:15 Chloride 105 mEq/L (98-107) 07/08/17 05:15 Carbon Dioxide 27.5 mEq/L (21.0-31.0) 07/08/17 05:15 Anion Gap 8.4 (7.0-16.0) 07/08/17 05:15 BUN 18 mg/dL (7-25) 07/08/17 05:15 Creatinine 0.4 mg/dL (0.6-1.2) L 07/08/17 05:15 Est GFR ( Amer) TNP 07/08/17 05:15 Est GFR (Non-Af Amer) TNP 07/08/17 05:15 BUN/Creatinine Ratio 45.0 07/08/17 05:15 Glucose 245 mg/dL (70-105) H 07/08/17 05:15 POC Glucose 214 MG/DL (70 - 105) H 07/08/17 05:21 Hemoglobin A1c % 5.0 % (4.0-6.0) 07/05/17 16:25 Whole Bld Lactic Acid 1.96 mmol/L (0.60-1.99) 07/07/17 06:15 Calcium 7.8 mg/dL (8.6-10.3) L 07/08/17 05:15 Phosphorus 2.5 mg/dL (2.5-5.0) 07/08/17 05:15 Magnesium 2.0 mg/dL (1.9-2.7) 07/08/17 05:15 Total Bilirubin 1.5 mg/dL (0.3-1.0) H 07/07/17 06:15 AST 35 U/L (13-39) 07/07/17 06:15 ALT 45 U/L (7-52) 07/07/17 06:15 Alkaline Phosphatase 188 U/L (34-104) H 07/07/17 06:15 Total Protein 5.7 gm/dL (6.0-8.3) L 07/07/17 06:15 Albumin 2.1 gm/dL (3.7-5.3) L 07/07/17 06:15 Globulin 3.6 gm/dL 07/07/17 06:15 Albumin/Globulin Ratio 0.6 (1.0-1.8) L 07/07/17 06:15 Prealbumin 6 mg/dL (9-32) L 07/06/17 06:30 Triglycerides 97 mg/dL (<150) 07/06/17 06:30 Cholesterol 76 mg/dL (<200) 07/06/17 06:30 - Physical Exam Vitals and I&O: Vital Signs Temp 97.4 F 07/08/17 07:41 Pulse 110 07/08/17 07:41 Resp 20 07/08/17 07:41 BP 106/53 07/08/17 07:41 Pulse Ox 100 07/08/17 07:41 Intake & Output 07/07/17 07/08/17 07/08/17 18:59 06:59 18:59 Intake Total 50 830 Output Total 1 Balance 50 829 Weight (lbs) 57.153 kg Intake: Intake, IV Amount 50 50 Meropenem 500 mg In 50 50 Sodium Chloride 0.9% 50 ml @ 50 mls/hr IV Q8H [facility] Rx#:[id number] Oral 0 Tube Feeding 180 TPN/PPN 600 Output: Stool 1 Other: # Voids 2 Weight Source Bedscale Active Medications: Current Medications Acetaminophen (Tylenol 650mg/20.3ml Suspension) 650 mg GT Q6HR PRN PRN Reason: Fever > 101 Stop: 09/04/17 09:07 Last Admin: 07/07/17 09:01 Dose: 650 mg Albuterol Sulfate (Albuterol 2.5mg/3ml Neb Ud) 2.5 mg HHN Q6HRT [facility] Stop: 09/05/17 00:59 Last Admin: 07/08/17 06:53 Dose: 2.5 mg [place] Oil/[place]rian Balsam/Trypsin (Venelex) 1 appl TP DAILY [facility] Stop: 09/05/17 08:59 Last Admin: 07/07/17 09:33 Dose: 1 appl Digoxin (Lanoxin) 0.125 mg IVP Q48HR [facility] Stop: 09/04/17 09:59 Last Admin: 07/06/17 10:55 Dose: Not Given Diltiazem HCl (Cardizem) 60 mg GT Q8HR [facility] Stop: 09/04/17 12:59 Last Admin: 07/08/17 05:10 Dose: Not Given Diltiazem HCl (Cardizem) 5 mg IVP Q6H PRN PRN Reason: HR ABOVE 120 Stop: 07/12/17 07:52 Furosemide (Lasix) 20 mg IVP Q12HR [facility] Stop: 09/04/17 20:59 Last Admin: 07/07/17 21:15 Dose: Not Given Vancomycin HCl 750 mg/ Sodium (Chloride) 250 mls @ 167 mls/hr IV Q24HR@0900 [facility] Stop: 09/04/17 09:59 Last Admin: 07/07/17 09:31 Dose: 167 mls/hr Meropenem 500 mg/ Sodium (Chloride) 50 mls @ 50 mls/hr IV Q8H [facility] Stop: 09/04/17 12:59 Last Admin: 07/08/17 05:13 Dose: 50 mls/hr Multivitamins/Minerals 10 ml/Dextrose/ Amino Acids/Electrolytes 1,680 mls @ 35 mls/hr IV .Q24H [facility] Stop: 07/08/17 15:59 Last Admin: 07/07/17 21:29 Dose: 70 mls/hr Insulin Aspart (Novolog Insulin Sliding Scale) 0 units SUBQ Q6HR [facility] PRN Reason: Protocol Stop: 09/04/17 11:59 Last Admin: 07/08/17 05:44 Dose: 4 units Lisinopril (Zestril) 10 mg GT Q12HR [facility] Stop: 09/04/17 20:59 Last Admin: 07/07/17 21:18 Dose: Not Given Metoclopramide HCl (Reglan) 10 mg GT Q8HR [facility] Stop: 09/04/17 12:59 Last Admin: 07/08/17 05:11 Dose: 10 mg Miscellaneous (Vancomycin Iv Per Pharmacy) 1 ea MC DAILY [facility] Stop: 09/05/17 08:59 Miscellaneous (Tpn Per Pharmacy) 1 ea MC PRN PRN PRN Reason: PROTOCOL Stop: 09/03/17 22:36 Morphine Sulfate (Morphine) 2 mg IV Q6H PRN PRN Reason: pain Stop: 09/04/17 18:01 Last Admin: 07/08/17 01:34 Dose: 2 mg Mupirocin (Bactroban Oint) 1 appl NS BID [facility] Stop: 07/12/17 09:01 Last Admin: 07/07/17 18:08 Dose: 1 appl Pantoprazole Sodium (Protonix) 40 mg IVP BID [facility] Stop: 09/03/17 21:59 Last Admin: 07/07/17 18:08 Dose: 40 mg Cardiovascular: Regular rate Lungs: Other (rales) Abdomen: Soft - Procedures Procedures: Procedures Procedure Code Date BYPASS STOMACH TO CUTANEOUS, OPEN APPROACH [id number] 07/05/17 EMERGENCY DEPT VISIT 05503 05/14/11 FREEING OF BOWEL ADHESION 53822 07/05/17 INTRODUCTION OF OTH THERAP SUBST INTO UP GI, PERC APPROACH [id number] 07/05/17 OTHER GROUP THERAPY 94.44 05/14/11 PLACE GASTROSTOMY TUBE 70734 07/05/17 RECREATIONAL THERAPY 93.81 05/14/11 RELEASE STOMACH, OPEN APPROACH [id number] 07/05/17 STOMACH SURGERY PROCEDURE 01674 07/05/17 Nutritional Asmnt/Malnutr-PDOC - Dietary Evaluation Malnutrition Findings (Please click <Entered> for more info): Nutritional Asmnt/Malnutrition Start: 07/06/17 15: 40 Text: Status: Complete Freq: Document 07/06/17 15:55 HEN (Rec: 07/06/17 16:09 [email or web address] Nutritional Asmnt/Malnutrition Patient General Information Nutritional Screening High Risk Diagnosis osteomyelitis, PNA, Gtube infection and fustula Pertinent Medical Hx/Surgical Hx no H&P at this time Subjective Information Pt had Gtube replacement today per nurse note. TPN started this afternoon. Current Diet Order/ Nutrition Support TPN D15% AA5% Lipid 20% 200ml at 50ml/hr Pertinent Medications lasix, novolog, reglan, k phos , vancomycin Pertinent Labs 07/06 K 3.2, Cr 0.4, glucose 166 , POC 172, Ca 8.0 Nutritional Hx/Data Height 1.47 m Height (Calculated Centimeters) 147.3 Current Weight (lbs) 53.07 kg Weight (Calculated Kilograms) 53.1 Weight (Calculated Grams) 82561.3 [place] Body Weight 96 Body Mass Index (BMI) 24.4 Weight Status Approriate GI Symptoms GI Symptoms None Last BM 07/05 Difficult in: None Skin Integrity/Comment: pressure area to buttocks, right foot, decubitus to left foot, reddened to right elbow Current %PO Negligible < 25% Estimated Nutritional Goals BEE in Kcals: Using Current wt Calories/Kcals/Kg 25-30 Kcals Calculated 7819-8229 Protein: Using Current wt Protein g/k-1.2 Protein Calculated 53-63 Fluid: ml 1325-1590ml (1ml/kcal) Nutritional Problem 1. Problem Problem altered nutrition related labs Etiology electrolytes imbalanced, endocrine dysfunction Signs/Symptoms: K 3.2, Cr 0.4, glucose 166, POC 172, Ca 8.0 Intervention/Recommendation Comments 1. Continue with current TPN regimen. It provides 1252kcal, 180g CHO (2.35mg/kg/min) and 60g protein, meeting 95% of calorie needs and 100% of protein needs. 2. If tube feeding needed, RD availeble for consult. 3. Monitor nutrition support, wt, labs and skin integrity 4. F/U high risk in 2 days, 5/ 3 Expected Outcomes/Goals Expected Outcomes/Goals 1. Pt to meet at least 75% of nutritional needs via nutrition support with tolerance 2. Wt stability, skin to remain intact, labs to approach WNL.
[2017-07-08] MEDS: Venelex 60gm Tube TP SCH (09:31)
--- NOTE | 2017-07-08 09:48 | Infectious Disease Prog Note ---
Infectious Disease Subjective - Review of Systems Service Date: 07/08/17 Subjective: Patient is toerating the feeding. No fever. Infectious Disease Objective - Results Result Diagrams: 07/07/17 06:15 07/08/17 05:15 Recent Labs: Laboratory Last Values WBC 9.0 Th/cmm (4.8-10.8) D 07/07/17 06:15 RBC 3.38 Mil/cmm (3.80-5.20) L 07/07/17 06:15 Hgb 10.6 gm/dL (12-16) L 07/07/17 06:15 Hct 31.3 % (41.0-60) L 07/07/17 06:15 MCV 92.6 fl (81-100) 07/07/17 06:15 MCH 31.4 pg (27.0-31.0) H 07/07/17 06:15 MCHC Differential 33.9 pg (28.0-36.0) 07/07/17 06:15 RDW 14.9 % (11.5-20.0) 07/07/17 06:15 Plt Count 242 Th/cmm (150-400) 07/07/17 06:15 MPV 9.1 fl 07/07/17 06:15 Neutrophils % 88.0 % (40.0-80.0) H 07/07/17 06:15 Lymphocytes % 6.7 % (20.0-50.0) L 07/07/17 06:15 Monocytes % 4.6 % (2.0-10.0) 07/07/17 06:15 Eosinophils % 0.4 % (0.0-5.0) 07/07/17 06:15 Basophils % 0.3 % (0.0-2.0) 07/07/17 06:15 PT 10.4 SECONDS (9.5-11.5) 07/05/17 17:15 INR 1.00 (0.5-1.4) 07/05/17 17:15 PTT (Actin FS) 26.6 SECONDS (26.0-38.0) 07/05/17 17:15 Sodium 137 mEq/L (136-145) 07/08/17 05:15 Potassium 3.9 mEq/L (3.5-5.1) 07/08/17 05:15 Chloride 105 mEq/L (98-107) 07/08/17 05:15 Carbon Dioxide 27.5 mEq/L (21.0-31.0) 07/08/17 05:15 Anion Gap 8.4 (7.0-16.0) 07/08/17 05:15 BUN 18 mg/dL (7-25) 07/08/17 05:15 Creatinine 0.4 mg/dL (0.6-1.2) L 07/08/17 05:15 Est GFR ( Amer) TNP 07/08/17 05:15 Est GFR (Non-Af Amer) TNP 07/08/17 05:15 BUN/Creatinine Ratio 45.0 07/08/17 05:15 Glucose 245 mg/dL (70-105) H 07/08/17 05:15 POC Glucose 214 MG/DL (70 - 105) H 07/08/17 05:21 Hemoglobin A1c % 5.0 % (4.0-6.0) 07/05/17 16:25 Whole Bld Lactic Acid 1.96 mmol/L (0.60-1.99) 07/07/17 06:15 Calcium 7.8 mg/dL (8.6-10.3) L 07/08/17 05:15 Phosphorus 2.5 mg/dL (2.5-5.0) 07/08/17 05:15 Magnesium 2.0 mg/dL (1.9-2.7) 07/08/17 05:15 Total Bilirubin 1.5 mg/dL (0.3-1.0) H 07/07/17 06:15 AST 35 U/L (13-39) 07/07/17 06:15 ALT 45 U/L (7-52) 07/07/17 06:15 Alkaline Phosphatase 188 U/L (34-104) H 07/07/17 06:15 Total Protein 5.7 gm/dL (6.0-8.3) L 07/07/17 06:15 Albumin 2.1 gm/dL (3.7-5.3) L 07/07/17 06:15 Globulin 3.6 gm/dL 07/07/17 06:15 Albumin/Globulin Ratio 0.6 (1.0-1.8) L 07/07/17 06:15 Prealbumin 6 mg/dL (9-32) L 07/06/17 06:30 Triglycerides 97 mg/dL (<150) 07/06/17 06:30 Cholesterol 76 mg/dL (<200) 07/06/17 06:30 - Physical Exam Vitals and I&O: Vital Signs Temp 97.4 F 07/08/17 07:41 Pulse 110 07/08/17 09:23 Resp 20 07/08/17 07:41 BP 106/53 07/08/17 09:23 Pulse Ox 100 07/08/17 07:41 Intake & Output 07/07/17 07/08/17 07/08/17 18:59 06:59 18:59 Intake Total 300 830 Output Total 1 Balance 300 829 Weight (lbs) 57.153 kg Intake: Intake, IV Amount 300 50 Meropenem 500 mg In 50 50 Sodium Chloride 0.9% 50 ml @ 50 mls/hr IV Q8H [facility] Rx#:[id number] Vancomycin HCl 750 mg In 250 Sodium Chloride 0.9% 250 ml @ 167 mls/hr IV Q24HR@ 0900 [facility] Rx#:[id number] Oral 0 Tube Feeding 180 TPN/PPN 600 Output: Stool 1 Other: # Voids 2 Weight Source Bedscale Active Medications: Current Medications Acetaminophen (Tylenol 650mg/20.3ml Suspension) 650 mg GT Q6HR PRN PRN Reason: Fever > 101 Stop: 09/04/17 09:07 Last Admin: 07/07/17 09:01 Dose: 650 mg Albuterol Sulfate (Albuterol 2.5mg/3ml Neb Ud) 2.5 mg HHN Q6HRT [facility] Stop: 09/05/17 00:59 Last Admin: 07/08/17 06:53 Dose: 2.5 mg [place] Oil/[place] Balsam/Trypsin (Venelex) 1 appl TP DAILY [facility] Stop: 09/05/17 08:59 Last Admin: 07/08/17 09:31 Dose: 1 appl Digoxin (Lanoxin) 0.125 mg IVP Q48HR [facility] Stop: 09/04/17 09:59 Last Admin: 07/06/17 10:55 Dose: Not Given Diltiazem HCl (Cardizem) 60 mg GT Q8HR [facility] Stop: 09/04/17 12:59 Last Admin: 07/08/17 05:10 Dose: Not Given Diltiazem HCl (Cardizem) 5 mg IVP Q6H PRN PRN Reason: HR ABOVE 120 Stop: 07/12/17 07:52 Furosemide (Lasix) 20 mg IVP Q12HR [facility] Stop: 09/04/17 20:59 Last Admin: 07/08/17 09:23 Dose: Not Given Vancomycin HCl 750 mg/ Sodium (Chloride) 250 mls @ 167 mls/hr IV Q24HR@0900 [facility] Stop: 09/04/17 09:59 Last Admin: 07/08/17 09:34 Dose: 167 mls/hr Meropenem 500 mg/ Sodium (Chloride) 50 mls @ 50 mls/hr IV Q8H [facility] Stop: 09/04/17 12:59 Last Admin: 07/08/17 05:13 Dose: 50 mls/hr Multivitamins/Minerals 10 ml/Dextrose/ Amino Acids/Electrolytes 1,680 mls @ 35 mls/hr IV .Q24H [facility] Stop: 07/08/17 15:59 Last Admin: 07/07/17 21:29 Dose: 70 mls/hr Insulin Aspart (Novolog Insulin Sliding Scale) 0 units SUBQ Q6HR [facility] PRN Reason: Protocol Stop: 09/04/17 11:59 Last Admin: 07/08/17 05:44 Dose: 4 units Lisinopril (Zestril) 10 mg GT Q12HR [facility] Stop: 09/04/17 20:59 Last Admin: 07/08/17 09:23 Dose: Not Given Metoclopramide HCl (Reglan) 10 mg GT Q8HR [facility] Stop: 09/04/17 12:59 Last Admin: 07/08/17 05:11 Dose: 10 mg Miscellaneous (Vancomycin Iv Per Pharmacy) 1 ea MC DAILY [facility] Stop: 09/05/17 08:59 Miscellaneous (Tpn Per Pharmacy) 1 ea MC PRN PRN PRN Reason: PROTOCOL Stop: 09/03/17 22:36 Morphine Sulfate (Morphine) 2 mg IV Q6H PRN PRN Reason: pain Stop: 09/04/17 18:01 Last Admin: 07/08/17 01:34 Dose: 2 mg Mupirocin (Bactroban Oint) 1 appl NS BID [facility] Stop: 07/12/17 09:01 Last Admin: 07/08/17 09:31 Dose: 1 appl Pantoprazole Sodium (Protonix) 40 mg IVP BID [facility] Stop: 09/03/17 21:59 Last Admin: 07/08/17 09:31 Dose: 40 mg General: no acute distress, well developed, well nourished HEENT: atraumatic, normocephalic, PERRLA, EOMI Neck: supple, no thyromegaly Cardiovascular: S1S2, regular Lungs: clear to auscultation bilaterally, clear to percussion Abdomen: soft, no tender, no distended Extremities: no cyanosis, no clubbing, no edema Neurological: awake, alert, oriented Skin: intact - Procedures Procedures: Procedures Procedure Code Date BYPASS STOMACH TO CUTANEOUS, OPEN APPROACH [id number] 07/05/17 EMERGENCY DEPT VISIT 59358 05/14/11 FREEING OF BOWEL ADHESION 62877 07/05/17 INTRODUCTION OF OTH THERAP SUBST INTO UP GI, PERC APPROACH [id number] 07/05/17 OTHER GROUP THERAPY 94.44 05/14/11 PLACE GASTROSTOMY TUBE 32446 07/05/17 RECREATIONAL THERAPY 93.81 05/14/11 RELEASE STOMACH, OPEN APPROACH [id number] 07/05/17 STOMACH SURGERY PROCEDURE 14967 07/05/17 Infectious Disease Assmt/Plan - Assessment Assessment: 1. 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 New G-tube was placed in. 2. Osteomyelitis, complicated wound of the left heel and foot. 3. Bilateral foot ulcers. 4. UTI. 5. Up the wall cellulitis. 6. Hypertension. 7. Diabetes mellitus type 2. 8. Severe dementia. 9. COPD. 10. CHF, cardiomyopathy, atrial fibrillation. 11. Depression. 12. Schizoaffective disorder. 13. Gastroesophageal reflux disease. 14. Seizure disorder. 15. History of cataract. - Plan Plan: Continue vancomycin and meropenem. Wound care. G tube feeding as toerated. DC plan back to [facility]. Nutritional Asmnt/Malnutr-PDOC - Dietary Evaluation Malnutrition Findings (Please click <Entered> for more info): Nutritional Asmnt/Malnutrition Start: 07/06/17 15: 40 Text: Status: Complete Freq: Document 07/06/17 15:55 LCHENG (Rec: 07/06/17 16:09 LCHENG [email or web address]) Nutritional Asmnt/Malnutrition Patient General Information Nutritional Screening High Risk Diagnosis osteomyelitis, PNA, Gtube infection and fustula Pertinent Medical Hx/Surgical Hx no H&P at this time Subjective Information Pt had Gtube replacement today per nurse note. TPN started this afternoon. Current Diet Order/ Nutrition Support TPN D15% AA5% Lipid 20% 200ml at 50ml/hr Pertinent Medications lasix, novolog, reglan, k phos , vancomycin Pertinent Labs 07/06 K 3.2, Cr 0.4, glucose 166 , POC 172, Ca 8.0 Nutritional Hx/Data Height 1.47 m Height (Calculated Centimeters) 147.3 Current Weight (lbs) 53.07 kg Weight (Calculated Kilograms) 53.1 Weight (Calculated Grams) 22284.3 [place] Body Weight 96 Body Mass Index (BMI) 24.4 Weight Status Approriate GI Symptoms GI Symptoms None Last BM 07/05 Difficult in: None Skin Integrity/Comment: pressure area to buttocks, right foot, decubitus to left foot, reddened to right elbow Current %PO Negligible < 25% Estimated Nutritional Goals BEE in Kcals: Using Current wt Calories/Kcals/Kg 25-30 Kcals Calculated 0621-3685 Protein: Using Current wt Protein g/k-1.2 Protein Calculated 53-63 Fluid: ml 1325-1590ml (1ml/kcal) Nutritional Problem 1. Problem Problem altered nutrition related labs Etiology electrolytes imbalanced, endocrine dysfunction Signs/Symptoms: K 3.2, Cr 0.4, glucose 166, POC 172, Ca 8.0 Intervention/Recommendation Comments 1. Continue with current TPN regimen. It provides 1252kcal, 180g CHO (2.35mg/kg/min) and 60g protein, meeting 95% of calorie needs and 100% of protein needs. 2. If tube feeding needed, RD availeble for consult. 3. Monitor nutrition support, wt, labs and skin integrity 4. F/U high risk in 2 days, 5/ 3 Expected Outcomes/Goals Expected Outcomes/Goals 1. Pt to meet at least 75% of nutritional needs via nutrition support with tolerance 2. Wt stability, skin to remain intact, labs to approach WNL.
--- NOTE | 2017-07-08 13:51 | GI Progress Note ---
Subjective - Review of Systems Subjective: NO ACTIVE BLEEDING Objective - Results Result Diagrams: 07/07/17 06:15 07/08/17 05:15 Recent Labs: Laboratory Last Values WBC 9.0 Th/cmm (4.8-10.8) D 07/07/17 06:15 RBC 3.38 Mil/cmm (3.80-5.20) L 07/07/17 06:15 Hgb 10.6 gm/dL (12-16) L 07/07/17 06:15 Hct 31.3 % (41.0-60) L 07/07/17 06:15 MCV 92.6 fl (81-100) 07/07/17 06:15 MCH 31.4 pg (27.0-31.0) H 07/07/17 06:15 MCHC Differential 33.9 pg (28.0-36.0) 07/07/17 06:15 RDW 14.9 % (11.5-20.0) 07/07/17 06:15 Plt Count 242 Th/cmm (150-400) 07/07/17 06:15 MPV 9.1 fl 07/07/17 06:15 Neutrophils % 88.0 % (40.0-80.0) H 07/07/17 06:15 Lymphocytes % 6.7 % (20.0-50.0) L 07/07/17 06:15 Monocytes % 4.6 % (2.0-10.0) 07/07/17 06:15 Eosinophils % 0.4 % (0.0-5.0) 07/07/17 06:15 Basophils % 0.3 % (0.0-2.0) 07/07/17 06:15 PT 10.4 SECONDS (9.5-11.5) 07/05/17 17:15 INR 1.00 (0.5-1.4) 07/05/17 17:15 PTT (Actin FS) 26.6 SECONDS (26.0-38.0) 07/05/17 17:15 Sodium 137 mEq/L (136-145) 07/08/17 05:15 Potassium 3.9 mEq/L (3.5-5.1) 07/08/17 05:15 Chloride 105 mEq/L (98-107) 07/08/17 05:15 Carbon Dioxide 27.5 mEq/L (21.0-31.0) 07/08/17 05:15 Anion Gap 8.4 (7.0-16.0) 07/08/17 05:15 BUN 18 mg/dL (7-25) 07/08/17 05:15 Creatinine 0.4 mg/dL (0.6-1.2) L 07/08/17 05:15 Est GFR ( Amer) TNP 07/08/17 05:15 Est GFR (Non-Af Amer) TNP 07/08/17 05:15 BUN/Creatinine Ratio 45.0 07/08/17 05:15 Glucose 245 mg/dL (70-105) H 07/08/17 05:15 POC Glucose 233 MG/DL (70 - 105) H 07/08/17 12:33 Hemoglobin A1c % 5.0 % (4.0-6.0) 07/05/17 16:25 Whole Bld Lactic Acid 1.96 mmol/L (0.60-1.99) 07/07/17 06:15 Calcium 7.8 mg/dL (8.6-10.3) L 07/08/17 05:15 Phosphorus 2.5 mg/dL (2.5-5.0) 07/08/17 05:15 Magnesium 2.0 mg/dL (1.9-2.7) 07/08/17 05:15 Total Bilirubin 1.5 mg/dL (0.3-1.0) H 07/07/17 06:15 AST 35 U/L (13-39) 07/07/17 06:15 ALT 45 U/L (7-52) 07/07/17 06:15 Alkaline Phosphatase 188 U/L (34-104) H 07/07/17 06:15 Total Protein 5.7 gm/dL (6.0-8.3) L 07/07/17 06:15 Albumin 2.1 gm/dL (3.7-5.3) L 07/07/17 06:15 Globulin 3.6 gm/dL 07/07/17 06:15 Albumin/Globulin Ratio 0.6 (1.0-1.8) L 07/07/17 06:15 Prealbumin 6 mg/dL (9-32) L 07/06/17 06:30 Triglycerides 97 mg/dL (<150) 07/06/17 06:30 Cholesterol 76 mg/dL (<200) 07/06/17 06:30 - Physical Exam Vitals and I&O: Vital Signs Temp 97.7 F 07/08/17 11:46 Pulse 115 07/08/17 12:35 Resp 22 07/08/17 12:35 BP 111/54 07/08/17 11:46 Pulse Ox 95 07/08/17 12:35 Intake & Output 07/07/17 07/08/17 07/08/17 18:59 06:59 18:59 Intake Total 300 830 Output Total 1 Balance 300 829 Weight (lbs) 57.153 kg Intake: Intake, IV Amount 300 50 Meropenem 500 mg In 50 50 Sodium Chloride 0.9% 50 ml @ 50 mls/hr IV Q8H [facility] Rx#:[id number] Vancomycin HCl 750 mg In 250 Sodium Chloride 0.9% 250 ml @ 167 mls/hr IV Q24HR@ 0900 [facility] Rx#:[id number] Oral 0 Tube Feeding 180 TPN/PPN 600 Output: Stool 1 Other: # Voids 2 Weight Source Bedscale Active Medications: Current Medications Acetaminophen (Tylenol 650mg/20.3ml Suspension) 650 mg GT Q6HR PRN PRN Reason: Fever > 101 Stop: 09/04/17 09:07 Last Admin: 07/07/17 09:01 Dose: 650 mg Albuterol Sulfate (Albuterol 2.5mg/3ml Neb Ud) 2.5 mg HHN Q6HRT [facility] Stop: 09/05/17 00:59 Last Admin: 07/08/17 12:35 Dose: 2.5 mg [place] Oil/[place] Balsam/Trypsin (Venelex) 1 appl TP DAILY [facility] Stop: 09/05/17 08:59 Last Admin: 07/08/17 09:31 Dose: 1 appl Digoxin (Lanoxin) 0.125 mg IVP Q48HR [facility]I Stop: 09/04/17 09:59 Last Admin: 07/08/17 11:38 Dose: 0.125 mg Diltiazem HCl (Cardizem) 60 mg GT Q8HR [facility] Stop: 09/04/17 12:59 Last Admin: 07/08/17 05:10 Dose: Not Given Diltiazem HCl (Cardizem) 5 mg IVP Q6H PRN PRN Reason: HR ABOVE 120 Stop: 07/12/17 07:52 Furosemide (Lasix) 20 mg IVP Q12HR [facility] Stop: 09/04/17 20:59 Last Admin: 07/08/17 09:23 Dose: Not Given Vancomycin HCl 750 mg/ Sodium (Chloride) 250 mls @ 167 mls/hr IV Q24HR@0900 [facility] Stop: 09/04/17 09:59 Last Admin: 07/08/17 09:34 Dose: 167 mls/hr Meropenem 500 mg/ Sodium (Chloride) 50 mls @ 50 mls/hr IV Q8H [facility] Stop: 09/04/17 12:59 Last Admin: 07/08/17 05:13 Dose: 50 mls/hr Multivitamins/Minerals 10 ml/Dextrose/ Amino Acids/Electrolytes 1,680 mls @ 35 mls/hr IV .Q24H [facility] Stop: 07/08/17 15:59 Last Admin: 07/07/17 21:29 Dose: 70 mls/hr Insulin Aspart (Novolog Insulin Sliding Scale) 0 units SUBQ Q6HR MAI PRN Reason: Protocol Stop: 09/04/17 11:59 Last Admin: 07/08/17 13:19 Dose: 4 units Lisinopril (Zestril) 10 mg GT Q12HR [facility] Stop: 09/04/17 20:59 Last Admin: 07/08/17 09:23 Dose: Not Given Metoclopramide HCl (Reglan) 10 mg GT Q8HR [facility] Stop: 09/04/17 12:59 Last Admin: 07/08/17 05:11 Dose: 10 mg Miscellaneous (Vancomycin Iv Per Pharmacy) 1 ea MC DAILY [facility] Stop: 09/05/17 08:59 Miscellaneous (Tpn Per Pharmacy) 1 ea MC PRN PRN PRN Reason: PROTOCOL Stop: 09/03/17 22:36 Morphine Sulfate (Morphine) 2 mg IV Q6H PRN PRN Reason: pain Stop: 09/04/17 18:01 Last Admin: 07/08/17 01:34 Dose: 2 mg Mupirocin (Bactroban Oint) 1 appl NS BID [facility] Stop: 07/12/17 09:01 Last Admin: 07/08/17 09:31 Dose: 1 appl Pantoprazole Sodium (Protonix) 40 mg IVP BID MAI Stop: 09/03/17 21:59 Last Admin: 07/08/17 09:31 Dose: 40 mg Cardiovascular: Regular rate Lungs: Other (rales) Abdomen: Soft - Procedures Procedures: Procedures Procedure Code Date BYPASS STOMACH TO CUTANEOUS, OPEN APPROACH [id number] 07/05/17 EMERGENCY DEPT VISIT 16478 05/14/11 FREEING OF BOWEL ADHESION 64705 07/05/17 INTRODUCTION OF OTH THERAP SUBST INTO UP GI, PERC APPROACH [id number] 07/05/17 OTHER GROUP THERAPY 94.44 05/14/11 PLACE GASTROSTOMY TUBE 55678 07/05/17 RECREATIONAL THERAPY 93.81 05/14/11 RELEASE STOMACH, OPEN APPROACH [id number] 07/05/17 STOMACH SURGERY PROCEDURE 51616 07/05/17 Assessment/Plan - Assessment Assessment: 87 YO FEMALE WITH DYPHAGIA HAS GT S/P SURGERY FOR GT SITE BLEEDING NO FURTHER BLEEDING 1.FOLLOW H/H 2.CONT POST OP CARE 3.TUBE FEEDS PER SURGEON
--- NOTE | 2017-07-08 21:04 | General Progress Note ---
Subjective - Review of Systems Service Date: 07/08/17 Subjective: Patient seen and examined chest congestion noted Objective - Results Result Diagrams: 07/07/17 06:15 07/08/17 05:15 Recent Labs: Laboratory Last Values WBC 9.0 Th/cmm (4.8-10.8) D 07/07/17 06:15 RBC 3.38 Mil/cmm (3.80-5.20) L 07/07/17 06:15 Hgb 10.6 gm/dL (12-16) L 07/07/17 06:15 Hct 31.3 % (41.0-60) L 07/07/17 06:15 MCV 92.6 fl (81-100) 07/07/17 06:15 MCH 31.4 pg (27.0-31.0) H 07/07/17 06:15 MCHC Differential 33.9 pg (28.0-36.0) 07/07/17 06:15 RDW 14.9 % (11.5-20.0) 07/07/17 06:15 Plt Count 242 Th/cmm (150-400) 07/07/17 06:15 MPV 9.1 fl 07/07/17 06:15 Neutrophils % 88.0 % (40.0-80.0) H 07/07/17 06:15 Lymphocytes % 6.7 % (20.0-50.0) L 07/07/17 06:15 Monocytes % 4.6 % (2.0-10.0) 07/07/17 06:15 Eosinophils % 0.4 % (0.0-5.0) 07/07/17 06:15 Basophils % 0.3 % (0.0-2.0) 07/07/17 06:15 PT 10.4 SECONDS (9.5-11.5) 07/05/17 17:15 INR 1.00 (0.5-1.4) 07/05/17 17:15 PTT (Actin FS) 26.6 SECONDS (26.0-38.0) 07/05/17 17:15 Sodium 137 mEq/L (136-145) 07/08/17 05:15 Potassium 3.9 mEq/L (3.5-5.1) 07/08/17 05:15 Chloride 105 mEq/L (98-107) 07/08/17 05:15 Carbon Dioxide 27.5 mEq/L (21.0-31.0) 07/08/17 05:15 Anion Gap 8.4 (7.0-16.0) 07/08/17 05:15 BUN 18 mg/dL (7-25) 07/08/17 05:15 Creatinine 0.4 mg/dL (0.6-1.2) L 07/08/17 05:15 Est GFR ( Amer) TNP 07/08/17 05:15 Est GFR (Non-Af Amer) TNP 07/08/17 05:15 BUN/Creatinine Ratio 45.0 07/08/17 05:15 Glucose 245 mg/dL (70-105) H 07/08/17 05:15 POC Glucose 224 MG/DL (70 - 105) H 07/08/17 17:35 Hemoglobin A1c % 5.0 % (4.0-6.0) 07/05/17 16:25 Whole Bld Lactic Acid 1.96 mmol/L (0.60-1.99) 07/07/17 06:15 Calcium 7.8 mg/dL (8.6-10.3) L 07/08/17 05:15 Phosphorus 2.5 mg/dL (2.5-5.0) 07/08/17 05:15 Magnesium 2.0 mg/dL (1.9-2.7) 07/08/17 05:15 Total Bilirubin 1.5 mg/dL (0.3-1.0) H 07/07/17 06:15 AST 35 U/L (13-39) 07/07/17 06:15 ALT 45 U/L (7-52) 07/07/17 06:15 Alkaline Phosphatase 188 U/L (34-104) H 07/07/17 06:15 Total Protein 5.7 gm/dL (6.0-8.3) L 07/07/17 06:15 Albumin 2.1 gm/dL (3.7-5.3) L 07/07/17 06:15 Globulin 3.6 gm/dL 07/07/17 06:15 Albumin/Globulin Ratio 0.6 (1.0-1.8) L 07/07/17 06:15 Prealbumin 6 mg/dL (9-32) L 07/06/17 06:30 Triglycerides 97 mg/dL (<150) 07/06/17 06:30 Cholesterol 76 mg/dL (<200) 07/06/17 06:30 - Physical Exam Vitals and I&O: Vital Signs Temp 97.5 F 07/08/17 15:37 Pulse 98 07/08/17 19:05 Resp 22 07/08/17 19:05 BP 110/52 07/08/17 15:37 Pulse Ox 98 07/08/17 19:05 Intake & Output 07/08/17 07/08/17 07/09/17 06:59 18:59 06:59 Intake Total 880 560 Output Total 1 Balance 879 560 Weight (lbs) 57.153 kg 57.153 kg Intake: Intake, IV Amount 100 Meropenem 500 mg In 100 Sodium Chloride 0.9% 50 ml @ 50 mls/hr IV Q8H [facility] Rx#:[id number] Oral 0 Tube Feeding 180 560 TPN/PPN 600 Output: Stool 1 Other: # Voids 2 5 # Bowel Movements 1 Weight Source Bedscale Bedscale Active Medications: Current Medications Acetaminophen (Tylenol 650mg/20.3ml Suspension) 650 mg GT Q6HR PRN PRN Reason: Fever > 101 Stop: 09/04/17 09:07 Last Admin: 07/07/17 09:01 Dose: 650 mg Albuterol Sulfate (Albuterol 2.5mg/3ml Neb Ud) 2.5 mg HHN Q6HRT [facility] Stop: 09/05/17 00:59 Last Admin: 07/08/17 19:04 Dose: 2.5 mg [place] Oil/[place] Balsam/Trypsin (Venelex) 1 appl TP DAILY [facility] Stop: 09/05/17 08:59 Last Admin: 07/08/17 09:31 Dose: 1 appl Digoxin (Lanoxin) 0.125 mg IVP Q48HR [facility] Stop: 09/04/17 09:59 Last Admin: 07/08/17 11:38 Dose: 0.125 mg Diltiazem HCl (Cardizem) 60 mg GT Q8HR [facility] Stop: 09/04/17 12:59 Last Admin: 07/08/17 13:58 Dose: 60 mg Diltiazem HCl (Cardizem) 5 mg IVP Q6H PRN PRN Reason: HR ABOVE 120 Stop: 07/12/17 07:52 Furosemide (Lasix) 20 mg IVP Q12HR [facility] Stop: 09/04/17 20:59 Last Admin: 07/08/17 09:23 Dose: Not Given Vancomycin HCl 750 mg/ Sodium (Chloride) 250 mls @ 167 mls/hr IV Q24HR@0900 [facility] Stop: 09/04/17 09:59 Last Admin: 07/08/17 09:34 Dose: 167 mls/hr Meropenem 500 mg/ Sodium (Chloride) 50 mls @ 50 mls/hr IV Q8H [facility] Stop: 09/04/17 12:59 Last Admin: 07/08/17 13:49 Dose: 50 mls/hr Insulin Aspart (Novolog Insulin Sliding Scale) 0 units SUBQ Q6HR [facility] PRN Reason: Protocol Stop: 09/04/17 11:59 Last Admin: 07/08/17 18:24 Dose: 4 units Lisinopril (Zestril) 10 mg GT Q12HR [facility] Stop: 09/04/17 20:59 Last Admin: 07/08/17 09:23 Dose: Not Given Metoclopramide HCl (Reglan) 10 mg GT Q8HR [facility] Stop: 09/04/17 12:59 Last Admin: 07/08/17 13:54 Dose: 10 mg Miscellaneous (Vancomycin Iv Per Pharmacy) 1 ea MC DAILY [facility] Stop: 09/05/17 08:59 Miscellaneous (Tpn Per Pharmacy) 1 ea [facility] PRN PRN PRN Reason: PROTOCOL Stop: 09/03/17 22:36 Morphine Sulfate (Morphine) 2 mg IV Q6H PRN PRN Reason: pain Stop: 09/04/17 18:01 Last Admin: 07/08/17 01:34 Dose: 2 mg Mupirocin (Bactroban Oint) 1 appl NS BID [facility] Stop: 07/12/17 09:01 Last Admin: 07/08/17 18:24 Dose: 1 appl Pantoprazole Sodium (Protonix) 40 mg IVP BID [facility] Stop: 09/03/17 21:59 Last Admin: 07/08/17 18:24 Dose: 40 mg Cardiovascular: Regular rate Lungs: Other (rales) Abdomen: Soft - Procedures Procedures: Procedures Procedure Code Date BYPASS STOMACH TO CUTANEOUS, OPEN APPROACH [id number] 07/05/17 EMERGENCY DEPT VISIT 43838 05/14/11 FREEING OF BOWEL ADHESION 16847 07/05/17 INTRODUCTION OF OTH THERAP SUBST INTO UP GI, PERC APPROACH [id number] 07/05/17 OTHER GROUP THERAPY 94.44 05/14/[address] PLACE GASTROSTOMY TUBE 82777 07/05/17 RECREATIONAL THERAPY 93.81 05/14/11 RELEASE STOMACH, OPEN APPROACH [id number] 07/05/17 STOMACH SURGERY PROCEDURE 72964 07/05/17 Assessment/Plan - Assessment Assessment: GI Bleed Pneumonia Left foot osteomyelitis Dysphagia 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 - Plan Plan: GT feeding IV antibiotics Wound care Suction Wound care Follow up labs in am Plan of care discussed with nursing staff Nutritional Asmnt/Malnutr-PDOC - Dietary Evaluation Malnutrition Findings (Please click <Entered> for more info): Nutritional Asmnt/Malnutrition Start: 07/06/17 15: 40 Text: Status: Complete Freq: Document 07/06/17 15:55 JUANIS (Rec: 07/06/17 16:09 [email or web address] Nutritional Asmnt/Malnutrition Patient General Information Nutritional Screening High Risk Diagnosis osteomyelitis, PNA, Gtube infection and fustula Pertinent Medical Hx/Surgical Hx no H&P at this time Subjective Information Pt had Gtube replacement today per nurse note. TPN started this afternoon. Current Diet Order/ Nutrition Support TPN D15% AA5% Lipid 20% 200ml at 50ml/hr Pertinent Medications lasix, novolog, reglan, k phos , vancomycin Pertinent Labs 07/06 K 3.2, Cr 0.4, glucose 166 , POC 172, Ca 8.0 Nutritional Hx/Data Height 1.47 m Height (Calculated Centimeters) 147.3 Current Weight (lbs) 53.07 kg Weight (Calculated Kilograms) 53.1 Weight (Calculated Grams) 19905.3 [place] Body Weight 96 Body Mass Index (BMI) 24.4 Weight Status Approriate GI Symptoms GI Symptoms None Last BM 07/05 Difficult in: None Skin Integrity/Comment: pressure area to buttocks, right foot, decubitus to left foot, reddened to right elbow Current %PO Negligible < 25% Estimated Nutritional Goals BEE in Kcals: Using Current wt Calories/Kcals/Kg 25-30 Kcals Calculated 2239-3464 Protein: Using Current wt Protein g/k-1.2 Protein Calculated 53-63 Fluid: ml 1325-1590ml (1ml/kcal) Nutritional Problem 1. Problem Problem altered nutrition related labs Etiology electrolytes imbalanced, endocrine dysfunction Signs/Symptoms: K 3.2, Cr 0.4, glucose 166, POC 172, Ca 8.0 Intervention/Recommendation Comments 1. Continue with current TPN regimen. It provides 1252kcal, 180g CHO (2.35mg/kg/min) and 60g protein, meeting 95% of calorie needs and 100% of protein needs. 2. If tube feeding needed, RD availeble for consult. 3. Monitor nutrition support, wt, labs and skin integrity 4. F/U high risk in 2 days, 5/ 3 Expected Outcomes/Goals Expected Outcomes/Goals 1. Pt to meet at least 75% of nutritional needs via nutrition support with tolerance 2. Wt stability, skin to remain intact, labs to approach WNL.
[2017-07-09] MEDS: INSULIN ASPART SLIDING SCALE 100 UNITS/ML UNIT SUBQ SCH ×5 (00:09→23:38)
[2017-07-09] MEDS: Albuterol Nebulizer 2.5mg/3mL HHN SCH ×4 (00:48→18:51)
[2017-07-09] MEDS: Meropenem 500 MG in Sodium Chloride 0.9% 50 ML IV SCH ×3 (04:17→21:29)
[2017-07-09] MEDS: Diltiazem 30 mg Tab GT SCH ×3 (05:06→21:28)
[2017-07-09 07:16] LABS: ALB/GLOB RATIO 0.5 (1.0-1.8); ALKALINE PHOSPHATASE 171 U/L (34-104); ANION GAP 9.3 (7.0-16.0); BILIRUBIN,TOTAL 1.3 mg/dL (0.3-1.0); BUN - UREA NITROGEN 24 mg/dL (7-25); CALCIUM SERUM 7.9 mg/dL (8.6-10.3); CARBON DIOXIDE 25.7 mEq/L (21.0-31.0); CHLORIDE 109 mEq/L (98-107); CREATININE - SERUM 0.5 mg/dL (0.6-1.2); GLUCOSE 216 mg/dL (70-105); MAGNESIUM 1.8 mg/dL (1.9-2.7); PHOSPHOROUS 2.4 mg/dL (2.5-5.0); SGOT 42 U/L (13-39); SGPT/ALT 45 U/L (7-52); SODIUM SERUM 140 mEq/L (136-145); TOTAL PROTEIN,SERUM 5.7 gm/dL (6.0-8.3)
[2017-07-09 07:22] LABS: % BASOPHILS 0.2 % (0.0-2.0); % EOSINOPHILS 1.2 % (0.0-5.0); % LYMPHOCYTES 8.2 % (20.0-50.0); % MONOCYTES 7.3 % (2.0-10.0); % NEUTROPHILS 83.1 % (40.0-80.0); EOSINOPHILE ABSOLUTE 0.1 Th/cmm (0.1-0.4); HEMATOCRIT 29.2 % (41.0-60); HEMOGLOBIN 9.9 gm/dL (12-16); LYMPHOCYTE ABSOLUTE 0.7 Th/cmm (1.5-3.0); MEAN CELL VOLUME 92.8 fl (81-100); MEAN CORPUSCULAR HEMOGLOBIN 31.5 pg (27.0-31.0); MEAN CORPUSCULAR HGB CONC 33.9 pg (28.0-36.0); MEAN PLATELET VOLUME 9.4 fl; MONOCYTE ABSOLUTE 0.6 Th/cmm (0.3-1.0); NEUTROPHILE ABSOLUTE 6.6 Th/cmm (1.8-8.0); PLATELET COUNT 265 Th/cmm (150-400); RED BLOOD COUNT 3.15 Mil/cmm (3.80-5.20); RED CELL DISTRIBUTION WIDTH 15.1 % (11.5-20.0)
--- NOTE | 2017-07-09 11:05 | General Progress Note ---
Subjective - Review of Systems Service Date: 07/09/17 Events since last encounter: labs ok dressings dry tolerating feedings Objective - Results Result Diagrams: 07/09/17 06:50 07/09/17 06:50 Recent Labs: Laboratory Last Values WBC 8.0 Th/cmm (4.8-10.8) 07/09/17 06:50 RBC 3.15 Mil/cmm (3.80-5.20) L 07/09/17 06:50 Hgb 9.9 gm/dL (12-16) L 07/09/17 06:50 Hct 29.2 % (41.0-60) L 07/09/17 06:50 MCV 92.8 fl (81-100) 07/09/17 06:50 MCH 31.5 pg (27.0-31.0) H 07/09/17 06:50 MCHC Differential 33.9 pg (28.0-36.0) 07/09/17 06:50 RDW 15.1 % (11.5-20.0) 07/09/17 06:50 Plt Count 265 Th/cmm (150-400) 07/09/17 06:50 MPV 9.4 fl 07/09/17 06:50 Neutrophils % 83.1 % (40.0-80.0) H 07/09/17 06:50 Lymphocytes % 8.2 % (20.0-50.0) L 07/09/17 06:50 Monocytes % 7.3 % (2.0-10.0) 07/09/17 06:50 Eosinophils % 1.2 % (0.0-5.0) 07/09/17 06:50 Basophils % 0.2 % (0.0-2.0) 07/09/17 06:50 PT 10.4 SECONDS (9.5-11.5) 07/05/17 17:15 INR 1.00 (0.5-1.4) 07/05/17 17:15 PTT (Actin FS) 26.6 SECONDS (26.0-38.0) 07/05/17 17:15 Sodium 140 mEq/L (136-145) 07/09/17 06:50 Potassium 4.0 mEq/L (3.5-5.1) 07/09/17 06:50 Chloride 109 mEq/L (98-107) H 07/09/17 06:50 Carbon Dioxide 25.7 mEq/L (21.0-31.0) 07/09/17 06:50 Anion Gap 9.3 (7.0-16.0) 07/09/17 06:50 BUN 24 mg/dL (7-25) 07/09/17 06:50 Creatinine 0.5 mg/dL (0.6-1.2) L 07/09/17 06:50 Est GFR ( Amer) TNP 07/09/17 06:50 Est GFR (Non-Af Amer) TNP 07/09/17 06:50 BUN/Creatinine Ratio 48.0 07/09/17 06:50 Glucose 216 mg/dL (70-105) H 07/09/17 06:50 POC Glucose 233 MG/DL (70 - 105) H 07/09/17 04:20 Hemoglobin A1c % 5.0 % (4.0-6.0) 07/05/17 16:25 Whole Bld Lactic Acid 1.96 mmol/L (0.60-1.99) 07/07/17 06:15 Calcium 7.9 mg/dL (8.6-10.3) L 07/09/17 06:50 Phosphorus 2.4 mg/dL (2.5-5.0) L 07/09/17 06:50 Magnesium 1.8 mg/dL (1.9-2.7) L 07/09/17 06:50 Total Bilirubin 1.3 mg/dL (0.3-1.0) H 07/09/17 06:50 AST 42 U/L (13-39) H 07/09/17 06:50 ALT 45 U/L (7-52) 07/09/17 06:50 Alkaline Phosphatase 171 U/L (34-104) H 07/09/17 06:50 Total Protein 5.7 gm/dL (6.0-8.3) L 07/09/17 06:50 Albumin 2.0 gm/dL (3.7-5.3) L 07/09/17 06:50 Globulin 3.7 gm/dL 07/09/17 06:50 Albumin/Globulin Ratio 0.5 (1.0-1.8) L 07/09/17 06:50 Prealbumin 6 mg/dL (9-32) L 07/06/17 06:30 Triglycerides 97 mg/dL (<150) 07/06/17 06:30 Cholesterol 76 mg/dL (<200) 07/06/17 06:30 Vancomycin Trough 5.3 ug/mL (5-10) 07/09/17 06:50 - Physical Exam Vitals and I&O: Vital Signs Temp 96.0 F 07/09/17 08:27 Pulse 90 07/09/17 09:45 Resp 20 07/09/17 08:27 BP 104/45 07/09/17 09:45 Pulse Ox 98 07/09/17 08:27 Intake & Output 07/08/17 07/09/17 07/09/17 18:59 06:59 18:59 Intake Total 610 50 Balance 610 50 Weight (lbs) 57.153 kg 58.06 kg Intake: Intake, IV Amount 50 50 Meropenem 500 mg In 50 50 Sodium Chloride 0.9% 50 ml @ 50 mls/hr IV Q8H [facility] Rx#:[id number] Tube Feeding 560 Other: # Voids 5 2 # Bowel Movements 1 Weight Source Bedscale Bedscale Active Medications: Current Medications Acetaminophen (Tylenol 650mg/20.3ml Suspension) 650 mg GT Q6HR PRN PRN Reason: Fever > 101 Stop: 09/04/17 09:07 Last Admin: 07/07/17 09:01 Dose: 650 mg Albuterol Sulfate (Albuterol 2.5mg/3ml Neb Ud) 2.5 mg HHN Q6HRT [facility] Stop: 09/05/17 00:59 Last Admin: 07/09/17 06:57 Dose: 2.5 mg [place] Oil/[place] Balsam/Trypsin (Venelex) 1 appl TP DAILY [facility] Stop: 09/05/17 08:59 Last Admin: 07/08/17 09:31 Dose: 1 appl Digoxin (Lanoxin) 0.125 mg IVP Q48HR [facility] Stop: 09/04/17 09:59 Last Admin: 07/08/17 11:38 Dose: 0.125 mg Diltiazem HCl (Cardizem) 60 mg GT Q8HR [facility] Stop: 09/04/17 12:59 Last Admin: 07/09/17 05:06 Dose: 60 mg Diltiazem HCl (Cardizem) 5 mg IVP Q6H PRN PRN Reason: HR ABOVE 120 Stop: 07/12/17 07:52 Furosemide (Lasix) 20 mg IVP Q12HR [facility] Stop: 09/04/17 20:59 Last Admin: 07/09/17 09:42 Dose: 20 mg Meropenem 500 mg/ Sodium (Chloride) 50 mls @ 50 mls/hr IV Q8H [facility] Stop: 09/04/17 12:59 Last Admin: 07/09/17 04:17 Dose: 50 mls/hr Vancomycin HCl 0.75 gm/ Sodium (Chloride) 250 mls @ 165 mls/hr IV Q12H [facility] Stop: 09/07/17 10:59 Last Admin: 07/09/17 10:44 Dose: 165 mls/hr Insulin Aspart (Novolog Insulin Sliding Scale) 0 units SUBQ Q6HR [facility] PRN Reason: Protocol Stop: 09/04/17 11:59 Last Admin: 07/09/17 05:03 Dose: 4 units Lisinopril (Zestril) 10 mg GT Q12HR [facility] Stop: 09/04/17 20:59 Last Admin: 07/09/17 09:45 Dose: Not Given Metoclopramide HCl (Reglan) 10 mg GT Q8HR [facility] Stop: 09/04/17 12:59 Last Admin: 07/09/17 05:06 Dose: 10 mg Miscellaneous (Vancomycin Iv Per Pharmacy) 1 ea MC DAILY [facility] Stop: 09/05/17 08:59 Miscellaneous (Tpn Per Pharmacy) 1 [facility] PRN PRN PRN Reason: PROTOCOL Stop: 09/03/17 22:36 Morphine Sulfate (Morphine) 2 mg IV Q6H PRN PRN Reason: pain Stop: 09/04/17 18:01 Last Admin: 07/08/17 21:23 Dose: 2 mg Mupirocin (Bactroban Oint) 1 appl NS BID [facility] Stop: 07/12/17 09:01 Last Admin: 07/09/17 09:46 Dose: 1 appl Pantoprazole Sodium (Protonix) 40 mg IVP BID [facility] Stop: 09/03/17 21:59 Last Admin: 07/09/17 09:44 Dose: 40 mg Cardiovascular: Regular rate Lungs: Other (rales) Abdomen: Soft - Procedures Procedures: Procedures Procedure Code Date BYPASS STOMACH TO CUTANEOUS, OPEN APPROACH [id number] 07/05/17 EMERGENCY DEPT VISIT 36000 05/14/11 FREEING OF BOWEL ADHESION 38069 07/05/17 INTRODUCTION OF OTH THERAP SUBST INTO UP GI, PERC APPROACH [id number] 07/05/17 OTHER GROUP THERAPY 94.44 05/14/[address] PLACE GASTROSTOMY TUBE 89476 07/05/17 RECREATIONAL THERAPY 93.81 05/14/11 RELEASE STOMACH, OPEN APPROACH [id number] 07/05/17 STOMACH SURGERY PROCEDURE 65114 07/05/17 Nutritional Asmnt/Malnutr-PDOC - Dietary Evaluation Malnutrition Findings (Please click <Entered> for more info): Nutritional Asmnt/Malnutrition Start: 07/06/17 15: 40 Text: Status: Complete Freq: Document 07/06/17 15:55 JUANIS (Rec: 07/06/17 16:09 [email or web address]) Nutritional Asmnt/Malnutrition Patient General Information Nutritional Screening High Risk Diagnosis osteomyelitis, PNA, Gtube infection and fustula Pertinent Medical Hx/Surgical Hx no H&P at this time Subjective Information Pt had Gtube replacement today per nurse note. TPN started this afternoon. Current Diet Order/ Nutrition Support TPN D15% AA5% Lipid 20% 200ml at 50ml/hr Pertinent Medications lasix, novolog, reglan, k phos , vancomycin Pertinent Labs 07/06 K 3.2, Cr 0.4, glucose 166 , POC 172, Ca 8.0 Nutritional Hx/Data Height 1.47 m Height (Calculated Centimeters) 147.3 Current Weight (lbs) 53.07 kg Weight (Calculated Kilograms) 53.1 Weight (Calculated Grams) 31675.3 [place] Body Weight 96 Body Mass Index (BMI) 24.4 Weight Status Approriate GI Symptoms GI Symptoms None Last BM 07/05 Difficult in: None Skin Integrity/Comment: pressure area to buttocks, right foot, decubitus to left foot, reddened to right elbow Current %PO Negligible < 25% Estimated Nutritional Goals BEE in Kcals: Using Current wt Calories/Kcals/Kg 25-30 Kcals Calculated 3135-3061 Protein: Using Current wt Protein g/k-1.2 Protein Calculated 53-63 Fluid: ml 1325-1590ml (1ml/kcal) Nutritional Problem 1. Problem Problem altered nutrition related labs Etiology electrolytes imbalanced, endocrine dysfunction Signs/Symptoms: K 3.2, Cr 0.4, glucose 166, POC 172, Ca 8.0 Intervention/Recommendation Comments 1. Continue with current TPN regimen. It provides 1252kcal, 180g CHO (2.35mg/kg/min) and 60g protein, meeting 95% of calorie needs and 100% of protein needs. 2. If tube feeding needed, RD availeble for consult. 3. Monitor nutrition support, wt, labs and skin integrity 4. F/U high risk in 2 days, 5/ 3 Expected Outcomes/Goals Expected Outcomes/Goals 1. Pt to meet at least 75% of nutritional needs via nutrition support with tolerance 2. Wt stability, skin to remain intact, labs to approach WNL.
--- NOTE | 2017-07-09 13:17 | Infectious Disease Prog Note ---
Infectious Disease Subjective - Review of Systems Service Date: 07/09/17 Subjective: Patient is tolerating the feeding. No fever. Infectious Disease Objective - Results Result Diagrams: 07/09/17 06:50 07/09/17 06:50 Recent Labs: Laboratory Last Values WBC 8.0 Th/cmm (4.8-10.8) 07/09/17 06:50 RBC 3.15 Mil/cmm (3.80-5.20) L 07/09/17 06:50 Hgb 9.9 gm/dL (12-16) L 07/09/17 06:50 Hct 29.2 % (41.0-60) L 07/09/17 06:50 MCV 92.8 fl (81-100) 07/09/17 06:50 MCH 31.5 pg (27.0-31.0) H 07/09/17 06:50 MCHC Differential 33.9 pg (28.0-36.0) 07/09/17 06:50 RDW 15.1 % (11.5-20.0) 07/09/17 06:50 Plt Count 265 Th/cmm (150-400) 07/09/17 06:50 MPV 9.4 fl 07/09/17 06:50 Neutrophils % 83.1 % (40.0-80.0) H 07/09/17 06:50 Lymphocytes % 8.2 % (20.0-50.0) L 07/09/17 06:50 Monocytes % 7.3 % (2.0-10.0) 07/09/17 06:50 Eosinophils % 1.2 % (0.0-5.0) 07/09/17 06:50 Basophils % 0.2 % (0.0-2.0) 07/09/17 06:50 PT 10.4 SECONDS (9.5-11.5) 07/05/17 17:15 INR 1.00 (0.5-1.4) 07/05/17 17:15 PTT (Actin FS) 26.6 SECONDS (26.0-38.0) 07/05/17 17:15 Sodium 140 mEq/L (136-145) 07/09/17 06:50 Potassium 4.0 mEq/L (3.5-5.1) 07/09/17 06:50 Chloride 109 mEq/L (98-107) H 07/09/17 06:50 Carbon Dioxide 25.7 mEq/L (21.0-31.0) 07/09/17 06:50 Anion Gap 9.3 (7.0-16.0) 07/09/17 06:50 BUN 24 mg/dL (7-25) 07/09/17 06:50 Creatinine 0.5 mg/dL (0.6-1.2) L 07/09/17 06:50 Est GFR ( Amer) TNP 07/09/17 06:50 Est GFR (Non-Af Amer) TNP 07/09/17 06:50 BUN/Creatinine Ratio 48.0 07/09/17 06:50 Glucose 216 mg/dL (70-105) H 07/09/17 06:50 POC Glucose 262 MG/DL (70 - 105) H 07/09/17 12:26 Hemoglobin A1c % 5.0 % (4.0-6.0) 07/05/17 16:25 Whole Bld Lactic Acid 1.96 mmol/L (0.60-1.99) 07/07/17 06:15 Calcium 7.9 mg/dL (8.6-10.3) L 07/09/17 06:50 Phosphorus 2.4 mg/dL (2.5-5.0) L 07/09/17 06:50 Magnesium 1.8 mg/dL (1.9-2.7) L 07/09/17 06:50 Total Bilirubin 1.3 mg/dL (0.3-1.0) H 07/09/17 06:50 AST 42 U/L (13-39) H 07/09/17 06:50 ALT 45 U/L (7-52) 07/09/17 06:50 Alkaline Phosphatase 171 U/L (34-104) H 07/09/17 06:50 Total Protein 5.7 gm/dL (6.0-8.3) L 07/09/17 06:50 Albumin 2.0 gm/dL (3.7-5.3) L 07/09/17 06:50 Globulin 3.7 gm/dL 07/09/17 06:50 Albumin/Globulin Ratio 0.5 (1.0-1.8) L 07/09/17 06:50 Prealbumin 6 mg/dL (9-32) L 07/06/17 06:30 Triglycerides 97 mg/dL (<150) 07/06/17 06:30 Cholesterol 76 mg/dL (<200) 07/06/17 06:30 Vancomycin Trough 5.3 ug/mL (5-10) 07/09/17 06:50 - Physical Exam Vitals and I&O: Vital Signs Temp 97.0 F 07/09/17 12:23 Pulse 60 07/09/17 12:39 Resp 19 07/09/17 12:23 BP 112/51 07/09/17 12:23 Pulse Ox 98 07/09/17 12:23 Intake & Output 07/08/17 07/09/17 07/09/17 18:59 06:59 18:59 Intake Total 610 100 250 Balance 610 100 250 Weight (lbs) 57.153 kg 58.06 kg Intake: Intake, IV Amount 50 100 250 Meropenem 500 mg In 50 100 Sodium Chloride 0.9% 50 ml @ 50 mls/hr IV Q8H [facility] Rx#:[id number] Vancomycin HCl 0.75 gm In 250 Sodium Chloride 0.9% 250 ml @ 165 mls/hr IV Q12H [facility] Rx#:[id number] Tube Feeding 560 Other: # Voids 5 2 # Bowel Movements 1 Weight Source Bedscale Bedscale Active Medications: Current Medications Acetaminophen (Tylenol 650mg/20.3ml Suspension) 650 mg GT Q6HR PRN PRN Reason: Fever > 101 Stop: 09/04/17 09:07 Last Admin: 07/07/17 09:01 Dose: 650 mg Albuterol Sulfate (Albuterol 2.5mg/3ml Neb Ud) 2.5 mg HHN Q6HRT MAI Stop: 09/05/17 00:59 Last Admin: 07/09/17 06:57 Dose: 2.5 mg [place] Oil/[place] Balsam/Trypsin (Venelex) 1 appl TP DAILY MAI Stop: 09/05/17 08:59 Last Admin: 07/08/17 09:31 Dose: 1 appl Digoxin (Lanoxin) 0.125 mg IVP Q48HR [facility]I Stop: 09/04/17 09:59 Last Admin: 07/08/17 11:38 Dose: 0.125 mg Diltiazem HCl (Cardizem) 60 mg GT Q8HR [facility]I Stop: 09/04/17 12:59 Last Admin: 07/09/17 12:39 Dose: Not Given Diltiazem HCl (Cardizem) 5 mg IVP Q6H PRN PRN Reason: HR ABOVE 120 Stop: 07/12/17 07:52 Furosemide (Lasix) 20 mg IVP Q12HR [facility] Stop: 09/04/17 20:59 Last Admin: 07/09/17 09:42 Dose: 20 mg Meropenem 500 mg/ Sodium (Chloride) 50 mls @ 50 mls/hr IV Q8H [facility] Stop: 09/04/17 12:59 Last Admin: 07/09/17 12:15 Dose: 50 mls/hr Vancomycin HCl 0.75 gm/ Sodium (Chloride) 250 mls @ 165 mls/hr IV Q12H [facility] Stop: 09/07/17 10:59 Last Infusion: 07/09/17 12:40 Dose: Infused Insulin Aspart (Novolog Insulin Sliding Scale) 0 units SUBQ Q6HR MAI PRN Reason: Protocol Stop: 09/04/17 11:59 Last Admin: 07/09/17 12:31 Dose: 6 units Lisinopril (Zestril) 10 mg GT Q12HR [facility] Stop: 09/04/17 20:59 Last Admin: 07/09/17 09:45 Dose: Not Given Metoclopramide HCl (Reglan) 10 mg GT Q8HR [facility] Stop: 09/04/17 12:59 Last Admin: 07/09/17 12:14 Dose: 10 mg Miscellaneous (Vancomycin Iv Per Pharmacy) 1 ea DAILY [facility] Stop: 09/05/17 08:59 Miscellaneous (Tpn Per Pharmacy) 1 ea PRN PRN PRN Reason: PROTOCOL Stop: 09/03/17 22:36 Morphine Sulfate (Morphine) 2 mg IV Q6H PRN PRN Reason: pain Stop: 09/04/17 18:01 Last Admin: 07/08/17 21:23 Dose: 2 mg Mupirocin (Bactroban Oint) 1 appl NS BID [facility] Stop: 07/12/17 09:01 Last Admin: 07/09/17 09:46 Dose: 1 appl Pantoprazole Sodium (Protonix) 40 mg IVP BID [facility] Stop: 09/03/17 21:59 Last Admin: 07/09/17 09:44 Dose: 40 mg General: no acute distress, well developed, well nourished HEENT: atraumatic, normocephalic, PERRLA Neck: supple, no thyromegaly Cardiovascular: S1S2, regular Lungs: clear to auscultation bilaterally, clear to percussion Abdomen: soft, other (G tube.), no tender, no distended, no mass Extremities: other (Contractures.), no cyanosis, no clubbing, no edema Neurological: awake Skin: other (billateral foot ulcers.) - Procedures Procedures: Procedures Procedure Code Date BYPASS STOMACH TO CUTANEOUS, OPEN APPROACH [id number] 07/05/17 EMERGENCY DEPT VISIT 52632 05/14/11 FREEING OF BOWEL ADHESION 31977 07/05/17 INTRODUCTION OF OTH THERAP SUBST INTO UP GI, PERC APPROACH [id number] 07/05/17 OTHER GROUP THERAPY 94.44 05/14/11 PLACE GASTROSTOMY TUBE 06064 07/05/17 RECREATIONAL THERAPY 93.81 05/14/11 RELEASE STOMACH, OPEN APPROACH [id number] 07/05/17 STOMACH SURGERY PROCEDURE 10155 07/05/17 Infectious Disease Assmt/Plan - Assessment Assessment: 1. 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 New G-tube was placed in. 2. Osteomyelitis, complicated wound of the left heel and foot. 3. Bilateral foot ulcers. 4. UTI. 5. Up the wall cellulitis. 6. Hypertension. 7. Diabetes mellitus type 2. 8. Severe dementia. 9. COPD. 10. CHF, cardiomyopathy, atrial fibrillation. 11. Depression. 12. Schizoaffective disorder. 13. Gastroesophageal reflux disease. 14. Seizure disorder. 15. History of cataract. - Plan Plan: Continue vancomycin and meropenem. Wound care. G tube feeding as tolerated. DC plan back to [facility]. Nutritional Asmnt/Malnutr-PDOC - Dietary Evaluation Malnutrition Findings (Please click <Entered> for more info): Nutritional Asmnt/Malnutrition Start: 07/06/17 15: 40 Text: Status: Complete Freq: Document 07/06/17 15:55 [facility] (Rec: 07/06/17 16:09 [email or web address]) Nutritional Asmnt/Malnutrition Patient General Information Nutritional Screening High Risk Diagnosis osteomyelitis, PNA, Gtube infection and fustula Pertinent Medical Hx/Surgical Hx no H&P at this time Subjective Information Pt had Gtube replacement today per nurse note. TPN started this afternoon. Current Diet Order/ Nutrition Support TPN D15% AA5% Lipid 20% 200ml at 50ml/hr Pertinent Medications lasix, novolog, reglan, k phos , vancomycin Pertinent Labs 07/06 K 3.2, Cr 0.4, glucose 166 , POC 172, Ca 8.0 Nutritional Hx/Data Height 1.47 m Height (Calculated Centimeters) 147.3 Current Weight (lbs) 53.07 kg Weight (Calculated Kilograms) 53.1 Weight (Calculated Grams) 89672.3 [place] Body Weight 96 Body Mass Index (BMI) 24.4 Weight Status Approriate GI Symptoms GI Symptoms None Last BM 07/05 Difficult in: None Skin Integrity/Comment: pressure area to buttocks, right foot, decubitus to left foot, reddened to right elbow Current %PO Negligible < 25% Estimated Nutritional Goals BEE in Kcals: Using Current wt Calories/Kcals/Kg 25-30 Kcals Calculated 4207-8823 Protein: Using Current wt Protein g/k-1.2 Protein Calculated 53-63 Fluid: ml 1325-1590ml (1ml/kcal) Nutritional Problem 1. Problem Problem altered nutrition related labs Etiology electrolytes imbalanced, endocrine dysfunction Signs/Symptoms: K 3.2, Cr 0.4, glucose 166, POC 172, Ca 8.0 Intervention/Recommendation Comments 1. Continue with current TPN regimen. It provides 1252kcal, 180g CHO (2.35mg/kg/min) and 60g protein, meeting 95% of calorie needs and 100% of protein needs. 2. If tube feeding needed, RD availeble for consult. 3. Monitor nutrition support, wt, labs and skin integrity 4. F/U high risk in 2 days, / 3 Expected Outcomes/Goals Expected Outcomes/Goals 1. Pt to meet at least 75% of nutritional needs via nutrition support with tolerance 2. Wt stability, skin to remain intact, labs to approach WNL.
[2017-07-09] MEDS: Venelex 60gm Tube TP SCH (16:53)
[2017-07-09] MEDS ORDERED: Amino Acids 3% / Electrolytes 1,000 ML IV SCH (17:15)
--- NOTE | 2017-07-09 21:49 | General Progress Note ---
Subjective - Review of Systems Service Date: 07/09/17 Subjective: Patient seen and examined tolerating feeding well no new concern reported Objective - Results Result Diagrams: 07/09/17 06:50 07/09/17 06:50 Recent Labs: Laboratory Last Values WBC 8.0 Th/cmm (4.8-10.8) 07/09/17 06:50 RBC 3.15 Mil/cmm (3.80-5.20) L 07/09/17 06:50 Hgb 9.9 gm/dL (12-16) L 07/09/17 06:50 Hct 29.2 % (41.0-60) L 07/09/17 06:50 MCV 92.8 fl (81-100) 07/09/17 06:50 MCH 31.5 pg (27.0-31.0) H 07/09/17 06:50 MCHC Differential 33.9 pg (28.0-36.0) 07/09/17 06:50 RDW 15.1 % (11.5-20.0) 07/09/17 06:50 Plt Count 265 Th/cmm (150-400) 07/09/17 06:50 MPV 9.4 fl 07/09/17 06:50 Neutrophils % 83.1 % (40.0-80.0) H 07/09/17 06:50 Lymphocytes % 8.2 % (20.0-50.0) L 07/09/17 06:50 Monocytes % 7.3 % (2.0-10.0) 07/09/17 06:50 Eosinophils % 1.2 % (0.0-5.0) 07/09/17 06:50 Basophils % 0.2 % (0.0-2.0) 07/09/17 06:50 PT 10.4 SECONDS (9.5-11.5) 07/05/17 17:15 INR 1.00 (0.5-1.4) 07/05/17 17:15 PTT (Actin FS) 26.6 SECONDS (26.0-38.0) 07/05/17 17:15 Sodium 140 mEq/L (136-145) 07/09/17 06:50 Potassium 4.0 mEq/L (3.5-5.1) 07/09/17 06:50 Chloride 109 mEq/L (98-107) H 07/09/17 06:50 Carbon Dioxide 25.7 mEq/L (21.0-31.0) 07/09/17 06:50 Anion Gap 9.3 (7.0-16.0) 07/09/17 06:50 BUN 24 mg/dL (7-25) 07/09/17 06:50 Creatinine 0.5 mg/dL (0.6-1.2) L 07/09/17 06:50 Est GFR ( Amer) TNP 07/09/17 06:50 Est GFR (Non-Af Amer) TNP 07/09/17 06:50 BUN/Creatinine Ratio 48.0 07/09/17 06:50 Glucose 216 mg/dL (70-105) H 07/09/17 06:50 POC Glucose 164 MG/DL (70 - 105) H 07/09/17 17:05 Hemoglobin A1c % 5.0 % (4.0-6.0) 07/05/17 16:25 Whole Bld Lactic Acid 1.96 mmol/L (0.60-1.99) 07/07/17 06:15 Calcium 7.9 mg/dL (8.6-10.3) L 07/09/17 06:50 Phosphorus 2.4 mg/dL (2.5-5.0) L 07/09/17 06:50 Magnesium 1.8 mg/dL (1.9-2.7) L 07/09/17 06:50 Total Bilirubin 1.3 mg/dL (0.3-1.0) H 07/09/17 06:50 AST 42 U/L (13-39) H 07/09/17 06:50 ALT 45 U/L (7-52) 07/09/17 06:50 Alkaline Phosphatase 171 U/L (34-104) H 07/09/17 06:50 Total Protein 5.7 gm/dL (6.0-8.3) L 07/09/17 06:50 Albumin 2.0 gm/dL (3.7-5.3) L 07/09/17 06:50 Globulin 3.7 gm/dL 07/09/17 06:50 Albumin/Globulin Ratio 0.5 (1.0-1.8) L 07/09/17 06:50 Prealbumin 6 mg/dL (9-32) L 07/06/17 06:30 Triglycerides 97 mg/dL (<150) 07/06/17 06:30 Cholesterol 76 mg/dL (<200) 07/06/17 06:30 Vancomycin Trough 5.3 ug/mL (5-10) 07/09/17 06:50 - Physical Exam Vitals and I&O: Vital Signs Temp 98.4 F 07/09/17 20:00 Pulse 94 07/09/17 21:29 Resp 19 07/09/17 20:00 BP 99/55 07/09/17 21:29 Pulse Ox 98 07/09/17 20:00 Intake & Output 07/09/17 07/09/17 07/10/17 06:59 18:59 06:59 Intake Total 100 920 Balance 100 920 Weight (lbs) 58.06 kg 58.06 kg Intake: Intake, IV Amount 100 300 Meropenem 500 mg In 100 50 Sodium Chloride 0.9% 50 ml @ 50 mls/hr IV Q8H [facility] Rx#:[id number] Vancomycin HCl 0.75 gm In 250 Sodium Chloride 0.9% 250 ml @ 165 mls/hr IV Q12H [facility] Rx#:[id number] Tube Feeding 200 TPN/PPN 420 Other: # Voids 2 3 # Bowel Movements 2 Stool Characteristics Soft Brown Weight Source Bedscale Bedscale Active Medications: Current Medications Acetaminophen (Tylenol 650mg/20.3ml Suspension) 650 mg GT Q6HR PRN PRN Reason: Fever > 101 Stop: 09/04/17 09:07 Last Admin: 07/07/17 09:01 Dose: 650 mg Albuterol Sulfate (Albuterol 2.5mg/3ml Neb Ud) 2.5 mg HHN Q6HRT MAI Stop: 09/05/17 00:59 Last Admin: 07/09/17 18:51 Dose: 2.5 mg [place] Oil/[place] Balsam/Trypsin (Venelex) 1 appl TP DAILY [facility] Stop: 09/05/17 08:59 Last Admin: 07/09/17 16:53 Dose: 1 appl Digoxin (Lanoxin) 0.125 mg IVP Q48HR [facility] Stop: 09/04/17 09:59 Last Admin: 07/08/17 11:38 Dose: 0.125 mg Diltiazem HCl (Cardizem) 60 mg GT Q8HR [facility] Stop: 09/04/17 12:59 Last Admin: 07/09/17 21:28 Dose: 60 mg Diltiazem HCl (Cardizem) 5 mg IVP Q6H PRN PRN Reason: HR ABOVE 120 Stop: 07/12/17 07:52 Furosemide (Lasix) 20 mg IVP Q12HR [facility] Stop: 09/04/17 20:59 Last Admin: 07/09/17 21:28 Dose: Not Given Meropenem 500 mg/ Sodium (Chloride) 50 mls @ 50 mls/hr IV Q8H [facility] Stop: 09/04/17 12:59 Last Admin: 07/09/17 21:29 Dose: 100 mls/hr Vancomycin HCl 0.75 gm/ Sodium (Chloride) 250 mls @ 165 mls/hr IV Q12H [facility] Stop: 09/07/17 10:59 Last Infusion: 07/09/17 12:40 Dose: Infused Amino Acids/Electrolytes (Procalamine) 1,000 mls @ 70 mls/hr IV .[id number] [facility] Stop: 07/10/17 07:32 Last Admin: 07/09/17 19:05 Dose: 70 mls/hr Insulin Aspart (Novolog Insulin Sliding Scale) 0 units SUBQ Q6HR [facility]I PRN Reason: Protocol Stop: 09/04/17 11:59 Last Admin: 07/09/17 17:09 Dose: 2 units Lisinopril (Zestril) 10 mg GT Q12HR [facility] Stop: 09/04/17 20:59 Last Admin: 07/09/17 21:29 Dose: Not Given Metoclopramide HCl (Reglan) 10 mg GT Q8HR [facility] Stop: 09/04/17 12:59 Last Admin: 07/09/17 21:30 Dose: 10 mg Miscellaneous (Vancomycin Iv Per Pharmacy) 1 ea [facility] DAILY [facility] Stop: 09/05/17 08:59 Morphine Sulfate (Morphine) 2 mg IV Q6H PRN PRN Reason: pain Stop: 09/04/17 18:01 Last Admin: 07/08/17 21:23 Dose: 2 mg Mupirocin (Bactroban Oint) 1 appl NS BID [facility] Stop: 07/12/17 09:01 Last Admin: 07/09/17 18:26 Dose: 1 appl Pantoprazole Sodium (Protonix) 40 mg IVP BID [facility] Stop: 09/03/17 21:59 Last Admin: 07/09/17 18:26 Dose: 40 mg Cardiovascular: Regular rate Lungs: Other (rales) Abdomen: Soft, no Tender - Procedures Procedures: Procedures Procedure Code Date BYPASS STOMACH TO CUTANEOUS, OPEN APPROACH [id number] 07/05/17 EMERGENCY DEPT VISIT 46712 05/14/11 FREEING OF BOWEL ADHESION 94098 07/05/17 INTRODUCTION OF OTH THERAP SUBST INTO UP GI, PERC APPROACH [id number] 07/05/17 OTHER GROUP THERAPY 94.44 05/14/[address] PLACE GASTROSTOMY TUBE 04255 07/05/17 RECREATIONAL THERAPY 93.81 05/14/11 RELEASE STOMACH, OPEN APPROACH [id number] 07/05/17 STOMACH SURGERY PROCEDURE 06096 07/05/17 Assessment/Plan - Assessment Assessment: GI Bleed Pneumonia Left foot osteomyelitis Dysphagia 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 - Plan Plan: GT feeding IV antibiotics Wound care Suction Wound care Follow up labs in am Plan of care discussed with nursing staff Nutritional Asmnt/Malnutr-PDOC - Dietary Evaluation Malnutrition Findings (Please click <Entered> for more info): Nutritional Asmnt/Malnutrition Start: 07/06/17 15: 40 Text: Status: Complete Freq: Document 07/06/17 15:55 [facility] (Rec: 07/06/17 16:09 [id number]) Nutritional Asmnt/Malnutrition Patient General Information Nutritional Screening High Risk Diagnosis osteomyelitis, PNA, Gtube infection and fustula Pertinent Medical Hx/Surgical Hx no H&P at this time Subjective Information Pt had Gtube replacement today per nurse note. TPN started this afternoon. Current Diet Order/ Nutrition Support TPN D15% AA5% Lipid 20% 200ml at 50ml/hr Pertinent Medications lasix, novolog, reglan, k phos , vancomycin Pertinent Labs 07/06 K 3.2, Cr 0.4, glucose 166 , POC 172, Ca 8.0 Nutritional Hx/Data Height 1.47 m Height (Calculated Centimeters) 147.3 Current Weight (lbs) 53.07 kg Weight (Calculated Kilograms) 53.1 Weight (Calculated Grams) 33641.3 [place] Body Weight 96 Body Mass Index (BMI) 24.4 Weight Status Approriate GI Symptoms GI Symptoms None Last BM 07/05 Difficult in: None Skin Integrity/Comment: pressure area to buttocks, right foot, decubitus to left foot, reddened to right elbow Current %PO Negligible < 25% Estimated Nutritional Goals BEE in Kcals: Using Current wt Calories/Kcals/Kg 25-30 Kcals Calculated 6593-2627 Protein: Using Current wt Protein g/k-1.2 Protein Calculated 53-63 Fluid: ml 1325-1590ml (1ml/kcal) Nutritional Problem 1. Problem Problem altered nutrition related labs Etiology electrolytes imbalanced, endocrine dysfunction Signs/Symptoms: K 3.2, Cr 0.4, glucose 166, POC 172, Ca 8.0 Intervention/Recommendation Comments 1. Continue with current TPN regimen. It provides 1252kcal, 180g CHO (2.35mg/kg/min) and 60g protein, meeting 95% of calorie needs and 100% of protein needs. 2. If tube feeding needed, RD availeble for consult. 3. Monitor nutrition support, wt, labs and skin integrity 4. F/U high risk in 2 days, 5/ 3 Expected Outcomes/Goals Expected Outcomes/Goals 1. Pt to meet at least 75% of nutritional needs via nutrition support with tolerance 2. Wt stability, skin to remain intact, labs to approach WNL.
[2017-07-10] MEDS: Albuterol Nebulizer 2.5mg/3mL HHN SCH ×4 (00:51→19:14)
[2017-07-10] MEDS: Meropenem 500 MG in Sodium Chloride 0.9% 50 ML IV SCH ×3 (05:12→21:00)
[2017-07-10] MEDS: Diltiazem 30 mg Tab GT SCH ×3 (05:14→20:50)
[2017-07-10] MEDS: INSULIN ASPART SLIDING SCALE 100 UNITS/ML UNIT SUBQ SCH ×3 (06:41→18:04)
[2017-07-10 07:20] LABS: ANION GAP 7.9 (7.0-16.0); BUN - UREA NITROGEN 24 mg/dL (7-25); CALCIUM SERUM 7.9 mg/dL (8.6-10.3); CARBON DIOXIDE 28.7 mEq/L (21.0-31.0); CHLORIDE 110 mEq/L (98-107); CREATININE - SERUM 0.4 mg/dL (0.6-1.2); GLUCOSE 179 mg/dL (70-105); MAGNESIUM 1.8 mg/dL (1.9-2.7); PHOSPHOROUS 2.5 mg/dL (2.5-5.0); POTASSIUM SERUM 3.6 mEq/L (3.5-5.1); SODIUM SERUM 143 mEq/L (136-145)
[2017-07-10] MEDS: Venelex 60gm Tube TP SCH (10:29)
[2017-07-10 13:46] LABS: pH 7.48 (7.35-7.45)
[2017-07-10 13:47] LABS: ALLEN TEST Positive
--- NOTE | 2017-07-10 14:47 | Infectious Disease Prog Note ---
Infectious Disease Subjective - Review of Systems Service Date: 07/10/17 Subjective: patient was tachypneic, so she was taken to the ICU, No fever. Infectious Disease Objective - Results Result Diagrams: 07/09/17 06:50 07/10/17 06:15 Recent Labs: Laboratory Last Values WBC 8.0 Th/cmm (4.8-10.8) 07/09/17 06:50 RBC 3.15 Mil/cmm (3.80-5.20) L 07/09/17 06:50 Hgb 9.9 gm/dL (12-16) L 07/09/17 06:50 Hct 29.2 % (41.0-60) L 07/09/17 06:50 MCV 92.8 fl (81-100) 07/09/17 06:50 MCH 31.5 pg (27.0-31.0) H 07/09/17 06:50 MCHC Differential 33.9 pg (28.0-36.0) 07/09/17 06:50 RDW 15.1 % (11.5-20.0) 07/09/17 06:50 Plt Count 265 Th/cmm (150-400) 07/09/17 06:50 MPV 9.4 fl 07/09/17 06:50 Neutrophils % 83.1 % (40.0-80.0) H 07/09/17 06:50 Lymphocytes % 8.2 % (20.0-50.0) L 07/09/17 06:50 Monocytes % 7.3 % (2.0-10.0) 07/09/17 06:50 Eosinophils % 1.2 % (0.0-5.0) 07/09/17 06:50 Basophils % 0.2 % (0.0-2.0) 07/09/17 06:50 PT 10.4 SECONDS (9.5-11.5) 07/05/17 17:15 INR 1.00 (0.5-1.4) 07/05/17 17:15 PTT (Actin FS) 26.6 SECONDS (26.0-38.0) 07/05/17 17:15 Specimen Source Arterial 07/10/17 13:23 Sample Site Right Radial 07/10/17 13:23 pH 7.48 (7.35-7.45) H 07/10/17 13:23 pCO2 41.0 mmHg (35.0-45.0) 07/10/17 13:23 pO2 89.0 mmHg (80.0-100.0) 07/10/17 13:23 HCO3 29.9 mEq/L (20.0-26.0) H 07/10/17 13:23 Base Excess 6.4 mEq/L (-3.0-3.0) H 07/10/17 13:23 O2 Saturation 97.0 % (92.0-100.0) 07/10/17 13:23 Blu Test Positive 07/10/17 13:23 Vent Rate NA 07/10/17 13:23 Inspired O2 28 07/10/17 13:23 Tidal Volume NA 07/10/17 13:23 PEEP NA 07/10/17 13:23 Pressure (ins/psv/peep) NA 07/10/17 13:23 Critical Value SH 07/10/17 13:23 Sodium 143 mEq/L (136-145) 07/10/17 06:15 Potassium 3.6 mEq/L (3.5-5.1) 07/10/17 06:15 Chloride 110 mEq/L (98-107) H 07/10/17 06:15 Carbon Dioxide 28.7 mEq/L (21.0-31.0) 07/10/17 06:15 Anion Gap 7.9 (7.0-16.0) 07/10/17 06:15 BUN 24 mg/dL (7-25) 07/10/17 06:15 Creatinine 0.4 mg/dL (0.6-1.2) L 07/10/17 06:15 Est GFR ( Amer) TNP 07/10/17 06:15 Est GFR (Non-Af Amer) TNP 07/10/17 06:15 BUN/Creatinine Ratio 60.0 07/10/17 06:15 Glucose 179 mg/dL (70-105) H 07/10/17 06:15 POC Glucose 213 MG/DL (70 - 105) H 07/10/17 12:42 Hemoglobin A1c % 5.0 % (4.0-6.0) 07/05/17 16:25 Whole Bld Lactic Acid 1.96 mmol/L (0.60-1.99) 07/07/17 06:15 Calcium 7.9 mg/dL (8.6-10.3) L 07/10/17 06:15 Phosphorus 2.5 mg/dL (2.5-5.0) 07/10/17 06:15 Magnesium 1.8 mg/dL (1.9-2.7) L 07/10/17 06:15 Total Bilirubin 1.3 mg/dL (0.3-1.0) H 07/09/17 06:50 AST 42 U/L (13-39) H 07/09/17 06:50 ALT 45 U/L (7-52) 07/09/17 06:50 Alkaline Phosphatase 171 U/L (34-104) H 07/09/17 06:50 Total Protein 5.7 gm/dL (6.0-8.3) L 07/09/17 06:50 Albumin 2.0 gm/dL (3.7-5.3) L 07/09/17 06:50 Globulin 3.7 gm/dL 07/09/17 06:50 Albumin/Globulin Ratio 0.5 (1.0-1.8) L 07/09/17 06:50 Prealbumin 6 mg/dL (9-32) L 07/06/17 06:30 Triglycerides 97 mg/dL (<150) 07/06/17 06:30 Cholesterol 76 mg/dL (<200) 07/06/17 06:30 Vancomycin Trough 5.3 ug/mL (5-10) 07/09/17 06:50 - Physical Exam Vitals and I&O: Vital Signs Temp 99.3 F 07/10/17 12:00 Pulse 100 07/10/17 13:37 Resp 18 07/10/17 12:26 BP 122/68 07/10/17 12:00 Pulse Ox 99 07/10/17 12:26 Intake & Output 07/09/17 07/10/17 07/10/17 18:59 06:59 18:59 Intake Total 920 847.75 0 Balance 920 847.75 0 Weight (lbs) 58.06 kg 65.771 kg Intake: Intake, IV Amount 300 267.75 0 Meropenem 500 mg In 50 100 Sodium Chloride 0.9% 50 ml @ 50 mls/hr IV Q8H [facility] Rx#:[id number] Vancomycin HCl 0.75 gm In 250 167.75 0 Sodium Chloride 0.9% 250 ml @ 165 mls/hr IV Q12H [facility] Rx#:[id number] Oral 0 Tube Feeding 200 480 TPN/PPN 420 Other 100 Other: # Voids 3 3 # Bowel Movements 2 2 Stool Characteristics Soft Soft Soft Brown Brown Brown Weight Source Bedscale Bedscale Active Medications: Current Medications Acetaminophen (Tylenol 650mg/20.3ml Suspension) 650 mg GT Q6HR PRN PRN Reason: Fever > 101 Stop: 09/04/17 09:07 Last Admin: 07/07/17 09:01 Dose: 650 mg Albuterol Sulfate (Albuterol 2.5mg/3ml Neb Ud) 2.5 mg HHN Q6HRT [facility] Stop: 09/05/17 00:59 Last Admin: 07/10/17 07:15 Dose: 2.5 mg [place] Oil/[place] Balsam/Trypsin (Venelex) 1 appl TP DAILY [facility] Stop: 09/05/17 08:59 Last Admin: 07/10/17 10:29 Dose: 1 appl Digoxin (Lanoxin) 0.125 mg IVP Q48HR [facility] Stop: 09/04/17 09:59 Last Admin: 07/10/17 10:25 Dose: 0.125 mg Diltiazem HCl (Cardizem) 60 mg GT Q8HR [facility] Stop: 09/04/17 12:59 Last Admin: 07/10/17 13:37 Dose: 60 mg Diltiazem HCl (Cardizem) 5 mg IVP Q6H PRN PRN Reason: HR ABOVE 120 Stop: 07/12/17 07:52 Furosemide (Lasix) 20 mg IVP Q12HR [facility] Stop: 09/04/17 20:59 Last Admin: 07/10/17 10:28 Dose: 20 mg Meropenem 500 mg/ Sodium (Chloride) 50 mls @ 50 mls/hr IV Q8H [facility] Stop: 09/04/17 12:59 Last Infusion: 07/10/17 06:42 Dose: Infused Vancomycin HCl 0.75 gm/ Sodium (Chloride) 250 mls @ 165 mls/hr IV Q12H [facility] Stop: 09/07/17 10:59 Last Admin: 07/10/17 12:48 Dose: 165 mls/hr Insulin Aspart (Novolog Insulin Sliding Scale) 0 units SUBQ Q6HR [facility] PRN Reason: Protocol Stop: 09/04/17 11:59 Last Admin: 07/10/17 12:54 Dose: 4 units Lisinopril (Zestril) 10 mg GT Q12HR [facility] Stop: 09/04/17 20:59 Last Admin: 07/10/17 10:28 Dose: Not Given Metoclopramide HCl (Reglan) 10 mg GT Q8HR [facility] Stop: 09/04/17 12:59 Last Admin: 07/10/17 13:37 Dose: 10 mg Miscellaneous (Vancomycin Iv Per Pharmacy) 1 ea MC DAILY [facility] Stop: 09/05/17 08:59 Morphine Sulfate (Morphine) 2 mg IV Q6H PRN PRN Reason: pain Stop: 09/04/17 18:01 Last Admin: 07/08/17 21:23 Dose: 2 mg Mupirocin (Bactroban Oint) 1 appl NS BID [facility] Stop: 07/12/17 09:01 Last Admin: 07/10/17 10:29 Dose: 1 appl Pantoprazole Sodium (Protonix) 40 mg IVP BID [facility] Stop: 09/03/17 21:59 Last Admin: 07/10/17 10:27 Dose: 40 mg General: no acute distress, well developed, well nourished HEENT: atraumatic, normocephalic, PERRLA Neck: supple, no thyromegaly Cardiovascular: S1S2, regular Lungs: clear to auscultation bilaterally, clear to percussion, other ( g Tube) Abdomen: soft, no tender, no distended Extremities: other (Contractures. B/l foot wounds.), no cyanosis, no clubbing, no edema Neurological: other (Confused) - Procedures Procedures: Procedures Procedure Code Date BYPASS STOMACH TO CUTANEOUS, OPEN APPROACH [id number] 07/05/17 EMERGENCY DEPT VISIT 76142 05/14/11 FREEING OF BOWEL ADHESION 02473 07/05/17 INTRODUCTION OF OTH THERAP SUBST INTO UP GI, PERC APPROACH [id number] 07/05/17 OTHER GROUP THERAPY 94.44 05/14/11 PLACE GASTROSTOMY TUBE 57984 07/05/17 RECREATIONAL THERAPY 93.81 05/14/11 RELEASE STOMACH, OPEN APPROACH [id number] 07/05/17 STOMACH SURGERY PROCEDURE 93938 07/05/17 Infectious Disease Assmt/Plan - Assessment Assessment: 1. 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 New G-tube was placed in. 2. Osteomyelitis, complicated wound of the left heel and foot. 3. Bilateral foot ulcers. 4. UTI. 5. Up the wall cellulitis. 6. Hypertension. 7. Diabetes mellitus type 2. 8. Severe dementia. 9. COPD. 10. CHF, cardiomyopathy, atrial fibrillation. 11. Depression. 12. Schizoaffective disorder. 13. Gastroesophageal reflux disease. 14. Seizure disorder. 15. History of cataract. - Plan Plan: Continue vancomycin and meropenem. Wound care. G tube feeding as tolerated. Pulmonary consult Dr Estevez was called. Nutritional Asmnt/Malnutr-PDOC - Dietary Evaluation Malnutrition Findings (Please click <Entered> for more info): Nutritional Asmnt/Malnutrition Start: 07/06/17 15: 40 Text: Status: Complete Freq: Document 07/06/17 15:55 BERTO (Rec: 07/06/17 16:09 [email or web address] Nutritional Asmnt/Malnutrition Patient General Information Nutritional Screening High Risk Diagnosis osteomyelitis, PNA, Gtube infection and fustula Pertinent Medical Hx/Surgical Hx no H&P at this time Subjective Information Pt had Gtube replacement today per nurse note. TPN started this afternoon. Current Diet Order/ Nutrition Support TPN D15% AA5% Lipid 20% 200ml at 50ml/hr Pertinent Medications lasix, novolog, reglan, k phos , vancomycin Pertinent Labs 07/06 K 3.2, Cr 0.4, glucose 166 , POC 172, Ca 8.0 Nutritional Hx/Data Height 1.47 m Height (Calculated Centimeters) 147.3 Current Weight (lbs) 53.07 kg Weight (Calculated Kilograms) 53.1 Weight (Calculated Grams) 59727.3 [place] Body Weight 96 Body Mass Index (BMI) 24.4 Weight Status Approriate GI Symptoms GI Symptoms None Last BM 07/05 Difficult in: None Skin Integrity/Comment: pressure area to buttocks, right foot, decubitus to left foot, reddened to right elbow Current %PO Negligible < 25% Estimated Nutritional Goals BEE in Kcals: Using Current wt Calories/Kcals/Kg 25-30 Kcals Calculated 6756-9578 Protein: Using Current wt Protein g/k-1.2 Protein Calculated 53-63 Fluid: ml 1325-1590ml (1ml/kcal) Nutritional Problem 1. Problem Problem altered nutrition related labs Etiology electrolytes imbalanced, endocrine dysfunction Signs/Symptoms: K 3.2, Cr 0.4, glucose 166, POC 172, Ca 8.0 Intervention/Recommendation Comments 1. Continue with current TPN regimen. It provides 1252kcal, 180g CHO (2.35mg/kg/min) and 60g protein, meeting 95% of calorie needs and 100% of protein needs. 2. If tube feeding needed, RD availeble for consult. 3. Monitor nutrition support, wt, labs and skin integrity 4. F/U high risk in 2 days, 5/ 3 Expected Outcomes/Goals Expected Outcomes/Goals 1. Pt to meet at least 75% of nutritional needs via nutrition support with tolerance 2. Wt stability, skin to remain intact, labs to approach WNL.
--- NOTE | 2017-07-10 16:11 | General Progress Note ---
Subjective - Review of Systems Service Date: 07/10/17 Subjective: Patient seen and examined seems tachypneic with respiratory distress. RT was called . Oral suction done. ABG ordered and patient was transferred to ICU Objective - Results Result Diagrams: 07/09/17 06:50 07/10/17 06:15 Recent Labs: Laboratory Last Values WBC 8.0 Th/cmm (4.8-10.8) 07/09/17 06:50 RBC 3.15 Mil/cmm (3.80-5.20) L 07/09/17 06:50 Hgb 9.9 gm/dL (12-16) L 07/09/17 06:50 Hct 29.2 % (41.0-60) L 07/09/17 06:50 MCV 92.8 fl (81-100) 07/09/17 06:50 MCH 31.5 pg (27.0-31.0) H 07/09/17 06:50 MCHC Differential 33.9 pg (28.0-36.0) 07/09/17 06:50 RDW 15.1 % (11.5-20.0) 07/09/17 06:50 Plt Count 265 Th/cmm (150-400) 07/09/17 06:50 MPV 9.4 fl 07/09/17 06:50 Neutrophils % 83.1 % (40.0-80.0) H 07/09/17 06:50 Lymphocytes % 8.2 % (20.0-50.0) L 07/09/17 06:50 Monocytes % 7.3 % (2.0-10.0) 07/09/17 06:50 Eosinophils % 1.2 % (0.0-5.0) 07/09/17 06:50 Basophils % 0.2 % (0.0-2.0) 07/09/17 06:50 PT 10.4 SECONDS (9.5-11.5) 07/05/17 17:15 INR 1.00 (0.5-1.4) 07/05/17 17:15 PTT (Actin FS) 26.6 SECONDS (26.0-38.0) 07/05/17 17:15 Specimen Source Arterial 07/10/17 13:23 Sample Site Right Radial 07/10/17 13:23 pH 7.48 (7.35-7.45) H 07/10/17 13:23 pCO2 41.0 mmHg (35.0-45.0) 07/10/17 13:23 pO2 89.0 mmHg (80.0-100.0) 07/10/17 13:23 HCO3 29.9 mEq/L (20.0-26.0) H 07/10/17 13:23 Base Excess 6.4 mEq/L (-3.0-3.0) H 07/10/17 13:23 O2 Saturation 97.0 % (92.0-100.0) 07/10/17 13:23 Blu Test Positive 07/10/17 13:23 Vent Rate NA 07/10/17 13:23 Inspired O2 28 07/10/17 13:23 Tidal Volume NA 07/10/17 13:23 PEEP NA 07/10/17 13:23 Pressure (ins/psv/peep) NA 07/10/17 13:23 Critical Value SH 07/10/17 13:23 Sodium 143 mEq/L (136-145) 07/10/17 06:15 Potassium 3.6 mEq/L (3.5-5.1) 07/10/17 06:15 Chloride 110 mEq/L (98-107) H 07/10/17 06:15 Carbon Dioxide 28.7 mEq/L (21.0-31.0) 07/10/17 06:15 Anion Gap 7.9 (7.0-16.0) 07/10/17 06:15 BUN 24 mg/dL (7-25) 07/10/17 06:15 Creatinine 0.4 mg/dL (0.6-1.2) L 07/10/17 06:15 Est GFR ( Amer) TNP 07/10/17 06:15 Est GFR (Non-Af Amer) [facility] 07/10/17 06:15 BUN/Creatinine Ratio 60.0 07/10/17 06:15 Glucose 179 mg/dL (70-105) H 07/10/17 06:15 POC Glucose 213 MG/DL (70 - 105) H 07/10/17 12:42 Hemoglobin A1c % 5.0 % (4.0-6.0) 07/05/17 16:25 Whole Bld Lactic Acid 1.96 mmol/L (0.60-1.99) 07/07/17 06:15 Calcium 7.9 mg/dL (8.6-10.3) L 07/10/17 06:15 Phosphorus 2.5 mg/dL (2.5-5.0) 07/10/17 06:15 Magnesium 1.8 mg/dL (1.9-2.7) L 07/10/17 06:15 Total Bilirubin 1.3 mg/dL (0.3-1.0) H 07/09/17 06:50 AST 42 U/L (13-39) H 07/09/17 06:50 ALT 45 U/L (7-52) 07/09/17 06:50 Alkaline Phosphatase 171 U/L (34-104) H 07/09/17 06:50 Total Protein 5.7 gm/dL (6.0-8.3) L 07/09/17 06:50 Albumin 2.0 gm/dL (3.7-5.3) L 07/09/17 06:50 Globulin 3.7 gm/dL 07/09/17 06:50 Albumin/Globulin Ratio 0.5 (1.0-1.8) L 07/09/17 06:50 Prealbumin 6 mg/dL (9-32) L 07/06/17 06:30 Triglycerides 97 mg/dL (<150) 07/06/17 06:30 Cholesterol 76 mg/dL (<200) 07/06/17 06:30 Vancomycin Trough 5.3 ug/mL (5-10) 07/09/17 06:50 - Physical Exam Vitals and I&O: Vital Signs Temp 99.3 F 07/10/17 12:00 Pulse 100 07/10/17 13:37 Resp 18 07/10/17 12:26 BP 122/68 07/10/17 12:00 Pulse Ox 99 07/10/17 12:26 Intake & Output 07/09/17 07/10/17 07/10/17 18:59 06:59 18:59 Intake Total 920 847.75 50 Balance 920 847.75 50 Weight (lbs) 58.06 kg 65.771 kg Intake: Intake, IV Amount 300 267.75 50 Meropenem 500 mg In 50 100 50 Sodium Chloride 0.9% 50 ml @ 50 mls/hr IV Q8H [facility] Rx#:[id number] Vancomycin HCl 0.75 gm In 250 167.75 0 Sodium Chloride 0.9% 250 ml @ 165 mls/hr IV Q12H [facility] Rx#:[id number] Oral 0 Tube Feeding 200 480 TPN/PPN 420 Other 100 Other: # Voids 3 3 # Bowel Movements 2 2 Stool Characteristics Soft Soft Soft Brown Brown Brown Weight Source Bedscale Bedscale Active Medications: Current Medications Acetaminophen (Tylenol 650mg/20.3ml Suspension) 650 mg GT Q6HR PRN PRN Reason: Fever > 101 Stop: 09/04/17 09:07 Last Admin: 07/07/17 09:01 Dose: 650 mg Albuterol Sulfate (Albuterol 2.5mg/3ml Neb Ud) 2.5 mg HHN Q6HRT [facility] Stop: 09/05/17 00:59 Last Admin: 07/10/17 07:15 Dose: 2.5 mg [place] Oil/[place] Balsam/Trypsin (Venelex) 1 appl TP DAILY [facility] Stop: 09/05/17 08:59 Last Admin: 07/10/17 10:29 Dose: 1 appl Digoxin (Lanoxin) 0.125 mg IVP Q48HR [facility] Stop: 09/04/17 09:59 Last Admin: 07/10/17 10:25 Dose: 0.125 mg Diltiazem HCl (Cardizem) 60 mg GT Q8HR [facility] Stop: 09/04/17 12:59 Last Admin: 07/10/17 13:37 Dose: 60 mg Diltiazem HCl (Cardizem) 5 mg IVP Q6H PRN PRN Reason: HR ABOVE 120 Stop: 07/12/17 07:52 Furosemide (Lasix) 20 mg IVP Q12HR [facility] Stop: 09/04/17 20:59 Last Admin: 07/10/17 10:28 Dose: 20 mg Meropenem 500 mg/ Sodium (Chloride) 50 mls @ 50 mls/hr IV Q8H [facility] Stop: 09/04/17 12:59 Last Infusion: 07/10/17 14:30 Dose: Infused Vancomycin HCl 0.75 gm/ Sodium (Chloride) 250 mls @ 165 mls/hr IV Q12H [facility] Stop: 09/07/17 10:59 Last Admin: 07/10/17 12:48 Dose: 165 mls/hr Insulin Aspart (Novolog Insulin Sliding Scale) 0 units SUBQ Q6HR [facility] PRN Reason: Protocol Stop: 09/04/17 11:59 Last Admin: 07/10/17 12:54 Dose: 4 units Lisinopril (Zestril) 10 mg GT Q12HR [facility] Stop: 09/04/17 20:59 Last Admin: 07/10/17 10:28 Dose: Not Given Metoclopramide HCl (Reglan) 10 mg GT Q8HR [facility] Stop: 09/04/17 12:59 Last Admin: 07/10/17 13:37 Dose: 10 mg Miscellaneous (Vancomycin Iv Per Pharmacy) 1 ea MC DAILY [facility] Stop: 09/05/17 08:59 Morphine Sulfate (Morphine) 2 mg IV Q6H PRN PRN Reason: pain Stop: 09/04/17 18:01 Last Admin: 07/08/17 21:23 Dose: 2 mg Mupirocin (Bactroban Oint) 1 appl NS BID [facility] Stop: 07/12/17 09:01 Last Admin: 07/10/17 10:29 Dose: 1 appl Pantoprazole Sodium (Protonix) 40 mg IVP BID [facility] Stop: 09/03/17 21:59 Last Admin: 07/10/17 10:27 Dose: 40 mg General: Mild distress Cardiovascular: Other (tachy) Lungs: Other (rales) Abdomen: Soft, no Distended - Procedures Procedures: Procedures Procedure Code Date BYPASS STOMACH TO CUTANEOUS, OPEN APPROACH [id number] 07/05/17 EMERGENCY DEPT VISIT 14112 05/14/11 FREEING OF BOWEL ADHESION 47034 07/05/17 INTRODUCTION OF OTH THERAP SUBST INTO UP GI, PERC APPROACH [id number] 07/05/17 OTHER GROUP THERAPY 94.44 05/14/[address] PLACE GASTROSTOMY TUBE 50055 07/05/17 RECREATIONAL THERAPY 93.81 05/14/11 RELEASE STOMACH, OPEN APPROACH [id number] 07/05/17 STOMACH SURGERY PROCEDURE 86473 07/05/17 Assessment/Plan - Assessment Assessment: Acute respiratory distress GI Bleed Pneumonia Left foot osteomyelitis Dysphagia 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 - Plan Plan: ICU care Pulmonary consulted ABG reviewed Frequest suctioning GT feeding IV antibiotics Wound care Follow up labs in am Plan of care discussed with nursing staff Nutritional Asmnt/Malnutr-PDOC - Dietary Evaluation Malnutrition Findings (Please click <Entered> for more info): Nutritional Asmnt/Malnutrition Start: 07/06/17 15: 40 Text: Status: Complete Freq: Document 07/06/17 15:55 BERTO (Rec: 07/06/17 16:09 LCIDA [facility]-[email or web address]) Nutritional Asmnt/Malnutrition Patient General Information Nutritional Screening High Risk Diagnosis osteomyelitis, PNA, Gtube infection and fustula Pertinent Medical Hx/Surgical Hx no H&P at this time Subjective Information Pt had Gtube replacement today per nurse note. TPN started this afternoon. Current Diet Order/ Nutrition Support TPN D15% AA5% Lipid 20% 200ml at 50ml/hr Pertinent Medications lasix, novolog, reglan, k phos , vancomycin Pertinent Labs 07/06 K 3.2, Cr 0.4, glucose 166 , POC 172, Ca 8.0 Nutritional Hx/Data Height 1.47 m Height (Calculated Centimeters) 147.3 Current Weight (lbs) 53.07 kg Weight (Calculated Kilograms) 53.1 Weight (Calculated Grams) 08284.3 [place] Body Weight 96 Body Mass Index (BMI) 24.4 Weight Status Approriate GI Symptoms GI Symptoms None Last BM 07/05 Difficult in: None Skin Integrity/Comment: pressure area to buttocks, right foot, decubitus to left foot, reddened to right elbow Current %PO Negligible < 25% Estimated Nutritional Goals BEE in Kcals: Using Current wt Calories/Kcals/Kg 25-30 Kcals Calculated 5623-9170 Protein: Using Current wt Protein g/k-1.2 Protein Calculated 53-63 Fluid: ml 1325-1590ml (1ml/kcal) Nutritional Problem 1. Problem Problem altered nutrition related labs Etiology electrolytes imbalanced, endocrine dysfunction Signs/Symptoms: K 3.2, Cr 0.4, glucose 166, POC 172, Ca 8.0 Intervention/Recommendation Comments 1. Continue with current TPN regimen. It provides 1252kcal, 180g CHO (2.35mg/kg/min) and 60g protein, meeting 95% of calorie needs and 100% of protein needs. 2. If tube feeding needed, RD availeble for consult. 3. Monitor nutrition support, wt, labs and skin integrity 4. F/U high risk in 2 days, 5/ 3 Expected Outcomes/Goals Expected Outcomes/Goals 1. Pt to meet at least 75% of nutritional needs via nutrition support with tolerance 2. Wt stability, skin to remain intact, labs to approach WNL.
--- NOTE | 2017-07-10 18:24 | GI Progress Note ---
Subjective - Review of Systems Service Date: 07/10/17 Events since last encounter: No events Subjective: no new syptoms Objective - Results Result Diagrams: 07/09/17 06:50 07/10/17 06:15 Recent Labs: Laboratory Last Values WBC 8.0 Th/cmm (4.8-10.8) 07/09/17 06:50 RBC 3.15 Mil/cmm (3.80-5.20) L 07/09/17 06:50 Hgb 9.9 gm/dL (12-16) L 07/09/17 06:50 Hct 29.2 % (41.0-60) L 07/09/17 06:50 MCV 92.8 fl (81-100) 07/09/17 06:50 MCH 31.5 pg (27.0-31.0) H 07/09/17 06:50 MCHC Differential 33.9 pg (28.0-36.0) 07/09/17 06:50 RDW 15.1 % (11.5-20.0) 07/09/17 06:50 Plt Count 265 Th/cmm (150-400) 07/09/17 06:50 MPV 9.4 fl 07/09/17 06:50 Neutrophils % 83.1 % (40.0-80.0) H 07/09/17 06:50 Lymphocytes % 8.2 % (20.0-50.0) L 07/09/17 06:50 Monocytes % 7.3 % (2.0-10.0) 07/09/17 06:50 Eosinophils % 1.2 % (0.0-5.0) 07/09/17 06:50 Basophils % 0.2 % (0.0-2.0) 07/09/17 06:50 PT 10.4 SECONDS (9.5-11.5) 07/05/17 17:15 INR 1.00 (0.5-1.4) 07/05/17 17:15 PTT (Actin FS) 26.6 SECONDS (26.0-38.0) 07/05/17 17:15 Specimen Source Arterial 07/10/17 13:23 Sample Site Right Radial 07/10/17 13:23 pH 7.48 (7.35-7.45) H 07/10/17 13:23 pCO2 41.0 mmHg (35.0-45.0) 07/10/17 13:23 pO2 89.0 mmHg (80.0-100.0) 07/10/17 13:23 HCO3 29.9 mEq/L (20.0-26.0) H 07/10/17 13:23 Base Excess 6.4 mEq/L (-3.0-3.0) H 07/10/17 13:23 O2 Saturation 97.0 % (92.0-100.0) 07/10/17 13:23 Blu Test Positive 07/10/17 13:23 Vent Rate NA 07/10/17 13:23 Inspired O2 28 07/10/17 13:23 Tidal Volume NA 07/10/17 13:23 PEEP NA 07/10/17 13:23 Pressure (ins/psv/peep) NA 07/10/17 13:23 Critical Value SH 07/10/17 13:23 Sodium 143 mEq/L (136-145) 07/10/17 06:15 Potassium 3.6 mEq/L (3.5-5.1) 07/10/17 06:15 Chloride 110 mEq/L (98-107) H 07/10/17 06:15 Carbon Dioxide 28.7 mEq/L (21.0-31.0) 07/10/17 06:15 Anion Gap 7.9 (7.0-16.0) 07/10/17 06:15 BUN 24 mg/dL (7-25) 07/10/17 06:15 Creatinine 0.4 mg/dL (0.6-1.2) L 07/10/17 06:15 Est GFR ( Amer) TNP 07/10/17 06:15 Est GFR (Non-Af Amer) TN 07/10/17 06:15 BUN/Creatinine Ratio 60.0 07/10/17 06:15 Glucose 179 mg/dL (70-105) H 07/10/17 06:15 POC Glucose 159 MG/DL (70 - 105) H 07/10/17 18:04 Hemoglobin A1c % 5.0 % (4.0-6.0) 07/05/17 16:25 Whole Bld Lactic Acid 1.96 mmol/L (0.60-1.99) 07/07/17 06:15 Calcium 7.9 mg/dL (8.6-10.3) L 07/10/17 06:15 Phosphorus 2.5 mg/dL (2.5-5.0) 07/10/17 06:15 Magnesium 1.8 mg/dL (1.9-2.7) L 07/10/17 06:15 Total Bilirubin 1.3 mg/dL (0.3-1.0) H 07/09/17 06:50 AST 42 U/L (13-39) H 07/09/17 06:50 ALT 45 U/L (7-52) 07/09/17 06:50 Alkaline Phosphatase 171 U/L (34-104) H 07/09/17 06:50 Total Protein 5.7 gm/dL (6.0-8.3) L 07/09/17 06:50 Albumin 2.0 gm/dL (3.7-5.3) L 07/09/17 06:50 Globulin 3.7 gm/dL 07/09/17 06:50 Albumin/Globulin Ratio 0.5 (1.0-1.8) L 07/09/17 06:50 Prealbumin 6 mg/dL (9-32) L 07/06/17 06:30 Triglycerides 97 mg/dL (<150) 07/06/17 06:30 Cholesterol 76 mg/dL (<200) 07/06/17 06:30 Vancomycin Trough 5.3 ug/mL (5-10) 07/09/17 06:50 - Physical Exam Vitals and I&O: Vital Signs Temp 98 F 07/10/17 18:00 Pulse 99 07/10/17 18:00 Resp 33 07/10/17 18:00 BP 100/53 07/10/17 18:00 Pulse Ox 100 07/10/17 18:00 Intake & Output 07/09/17 07/10/17 07/10/17 18:59 06:59 18:59 Intake Total 920 847.75 1230 Balance 920 847.75 1230 Weight (lbs) 58.06 kg 65.771 kg 59.506 kg Intake: Intake, IV Amount 300 267.75 50 Meropenem 500 mg In 50 100 50 Sodium Chloride 0.9% 50 ml @ 50 mls/hr IV Q8H [facility] Rx#:[id number] Vancomycin HCl 0.75 gm In 250 167.75 0 Sodium Chloride 0.9% 250 ml @ 165 mls/hr IV Q12H [facility] Rx#:[id number] Oral 0 Tube Feeding 200 480 780 TPN/PPN 420 Other 100 400 Other: # Voids 3 3 3 # Bowel Movements 2 2 1 Stool Characteristics Soft Soft Soft Brown Brown Brown Weight Source Bedscale Bedscale Bedscale Active Medications: Current Medications Acetaminophen (Tylenol 650mg/20.3ml Suspension) 650 mg GT Q6HR PRN PRN Reason: Fever > 101 Stop: 09/04/17 09:07 Last Admin: 07/07/17 09:01 Dose: 650 mg Albuterol Sulfate (Albuterol 2.5mg/3ml Neb Ud) 2.5 mg HHN Q6HRT [facility] Stop: 09/05/17 00:59 Last Admin: 07/10/17 07:15 Dose: 2.5 mg Budesonide (Pulmicort) 0.5 mg HHN BIDRT [facility] Stop: 09/08/17 18:59 [place] Oil/Greek Balsam/Trypsin (Venelex) 1 appl TP DAILY [facility] Stop: 09/05/17 08:59 Last Admin: 07/10/17 10:29 Dose: 1 appl Digoxin (Lanoxin) 0.125 mg IVP Q48HR [facility] Stop: 09/04/17 09:59 Last Admin: 07/10/17 10:25 Dose: 0.125 mg Diltiazem HCl (Cardizem) 60 mg GT Q8HR [facility] Stop: 09/04/17 12:59 Last Admin: 07/10/17 13:37 Dose: 60 mg Diltiazem HCl (Cardizem) 5 mg IVP Q6H PRN PRN Reason: HR ABOVE 120 Stop: 07/12/17 07:52 Furosemide (Lasix) 20 mg IVP Q12HR [facility] Stop: 09/04/17 20:59 Last Admin: 07/10/17 10:28 Dose: 20 mg Meropenem 500 mg/ Sodium (Chloride) 50 mls @ 50 mls/hr IV Q8H [facility] Stop: 09/04/17 12:59 Last Infusion: 07/10/17 14:30 Dose: Infused Vancomycin HCl 0.75 gm/ Sodium (Chloride) 250 mls @ 165 mls/hr IV Q12H [facility] Stop: 09/07/17 10:59 Last Admin: 07/10/17 12:48 Dose: 165 mls/hr Insulin Aspart (Novolog Insulin Sliding Scale) 0 units SUBQ Q6HR [facility] PRN Reason: Protocol Stop: 09/04/17 11:59 Last Admin: 07/10/17 18:04 Dose: 2 units Lisinopril (Zestril) 10 mg GT Q12HR [facility] Stop: 09/04/17 20:59 Last Admin: 07/10/17 10:28 Dose: Not Given Metoclopramide HCl (Reglan) 10 mg GT Q8HR [facility] Stop: 09/04/17 12:59 Last Admin: 07/10/17 13:37 Dose: 10 mg Miscellaneous (Vancomycin Iv Per Pharmacy) 1 ea MC DAILY [facility] Stop: 09/05/17 08:59 Morphine Sulfate (Morphine) 2 mg IV Q6H PRN PRN Reason: pain Stop: 09/04/17 18:01 Last Admin: 07/08/17 21:23 Dose: 2 mg Mupirocin (Bactroban Oint) 1 appl NS BID [facility] Stop: 07/12/17 09:01 Last Admin: 07/10/17 16:25 Dose: 1 appl Pantoprazole Sodium (Protonix) 40 mg IVP BID [facility] Stop: 09/03/17 21:59 Last Admin: 07/10/17 16:25 Dose: 40 mg General: No acute distress, Mild distress Cardiovascular: Regular rate, Normal S1, Normal S2, Other (tachy) Lungs: Other (rales) Abdomen: Soft, Other (G tube/ surgical dressing), no Distended - Procedures Procedures: Procedures Procedure Code Date BYPASS STOMACH TO CUTANEOUS, OPEN APPROACH [id number] 07/05/17 EMERGENCY DEPT VISIT 08669 05/14/11 FREEING OF BOWEL ADHESION 25174 07/05/17 INTRODUCTION OF OTH THERAP SUBST INTO UP GI, PERC APPROACH [id number] 07/05/17 OTHER GROUP THERAPY 94.44 05/14/11 PLACE GASTROSTOMY TUBE 22629 07/05/17 RECREATIONAL THERAPY 93.81 05/14/11 RELEASE STOMACH, OPEN APPROACH [id number] 07/05/17 STOMACH SURGERY PROCEDURE 32067 07/05/17 Assessment/Plan - Assessment Assessment: 1. Dysphagia 2. Bleeding from G tube site - Plan Plan: 1. Dysphagia Cont tube feeding 2. Bleeding from G tube site S/P surgery. No bleeding
--- NOTE | 2017-07-10 19:07 | Consultation ---
DATE OF CONSULTATION: 07/10/2017 REFERRING PHYSICIAN: Dr. John Caputo. Thank you very much Dr. Nelson, for this consultation. HISTORY OF PRESENT ILLNESS: This is an 87-year-old female who has history of dementia and dysphagia. She came here for open gastrostomy. The patient was having some shortness of breath and hypoxemia. The patient, apparently was having some respiratory distress and we were called for consultation. The patient was placed on oxygen, breathing treatment, little bit tachypneic with some shallow breathing, no other history can be obtained at this time. REVIEW OF SYSTEMS: Unable to obtain because of the patient's condition. PHYSICAL EXAMINATION: GENERAL: The patient opens eyes, not communicative. Moderate distress. VITAL SIGNS: Temperature 98.0, pulse 99, respirations 27, blood pressure 100/52, saturation is 100%. HEENT: Atraumatic, normocephalic. Pupils react to light and accommodation. Ears, nose and throat normal. NECK: Supple. No JVD. CHEST: There is fair entry, few rhonchi in bases. HEART: Regular. ABDOMEN: Soft. EXTREMITIES: No edema. LABORATORY DATA: ABGs: pH 7.48, pCO2 is 41, pO2 89, bicarb 29, saturation 97%. Sodium 143, potassium 3.6, BUN is 24, creatinine 0.4. WBC 8.0, hemoglobin 9.9, hematocrit 29.2, platelets 265. The last chest x-ray was from few days ago showed right lower lobe infiltrates, small lung volumes. IMPRESSION: This is an 87-year-old female with: 1. Respiratory failure. 2. Pneumonia. 3. Possible aspiration. 4. dysphagia. 5. Weakness. PLAN: 1. Continue IV antibiotics. 2. Nebulizer treatment. 3. Add Pulmicort nebulizer. 4. Follow up chest x-ray and put BiPAP p.r.n. Thank you very much, Dr. Nelson for this consultation. We will follow the patient with you. JOB# [id number] JUAN M
[2017-07-10] MEDS: Budesonide 0.5 Mg/2 mL Ud HHN SCH (19:14)
[2017-07-11] MEDS: Albuterol Nebulizer 2.5mg/3mL HHN SCH ×4 (00:23→19:30)
[2017-07-11] MEDS: INSULIN ASPART SLIDING SCALE 100 UNITS/ML UNIT SUBQ SCH ×4 (00:54→17:20)
[2017-07-11] MEDS: Meropenem 500 MG in Sodium Chloride 0.9% 50 ML IV SCH ×3 (05:00→21:10)
[2017-07-11] MEDS: Diltiazem 30 mg Tab GT SCH ×3 (05:08→21:10)
[2017-07-11 06:11] LABS: ANION GAP 6.3 (7.0-16.0); BUN - UREA NITROGEN 24 mg/dL (7-25); CALCIUM SERUM 7.8 mg/dL (8.6-10.3); CARBON DIOXIDE 30.1 mEq/L (21.0-31.0); CHLORIDE 110 mEq/L (98-107); CREATININE - SERUM 0.5 mg/dL (0.6-1.2); GLUCOSE 181 mg/dL (70-105); MAGNESIUM 1.7 mg/dL (1.9-2.7); PHOSPHOROUS 2.4 mg/dL (2.5-5.0); POTASSIUM SERUM 3.4 mEq/L (3.5-5.1); SODIUM SERUM 143 mEq/L (136-145)
[2017-07-11] MEDS: Budesonide 0.5 Mg/2 mL Ud HHN SCH ×2 (07:41→19:30)
--- NOTE | 2017-07-11 07:52 | Diagnostic Imaging Report ---
Portable chest x-ray HISTORY: Shortness of breath Compared with the prior exam of 07/05/2017, the heart is enlarged. Density seen in the right left lower hemithoracic regions consistent with bilateral pleural effusions. Underlying pneumonia and/or atelectasis cannot be excluded. A central line tip remains in the region of the superior vena cava. IMPRESSION: 1. Cardiomegaly with atherosclerotic vascular changes 2. Evidence of bilateral pleural effusions. Underlying pneumonia and/or atelectasis cannot be excluded.
[2017-07-11] MEDS: Venelex 60gm Tube TP SCH (08:35)
[2017-07-11] MEDS ORDERED: Mag Sulfate 2gm/50mL Premix 2 GM/50 ML BAG IV ONE (09:41)
--- NOTE | 2017-07-11 09:55 | General Progress Note ---
Subjective - Review of Systems Service Date: 07/11/17 Events since last encounter: tolerating GT feedings 30% 02, no SOB Objective - Results Result Diagrams: 07/09/17 06:50 07/11/17 05:15 Recent Labs: Laboratory Last Values WBC 8.0 Th/cmm (4.8-10.8) 07/09/17 06:50 RBC 3.15 Mil/cmm (3.80-5.20) L 07/09/17 06:50 Hgb 9.9 gm/dL (12-16) L 07/09/17 06:50 Hct 29.2 % (41.0-60) L 07/09/17 06:50 MCV 92.8 fl (81-100) 07/09/17 06:50 MCH 31.5 pg (27.0-31.0) H 07/09/17 06:50 MCHC Differential 33.9 pg (28.0-36.0) 07/09/17 06:50 RDW 15.1 % (11.5-20.0) 07/09/17 06:50 Plt Count 265 Th/cmm (150-400) 07/09/17 06:50 MPV 9.4 fl 07/09/17 06:50 Neutrophils % 83.1 % (40.0-80.0) H 07/09/17 06:50 Lymphocytes % 8.2 % (20.0-50.0) L 07/09/17 06:50 Monocytes % 7.3 % (2.0-10.0) 07/09/17 06:50 Eosinophils % 1.2 % (0.0-5.0) 07/09/17 06:50 Basophils % 0.2 % (0.0-2.0) 07/09/17 06:50 PT 10.4 SECONDS (9.5-11.5) 07/05/17 17:15 INR 1.00 (0.5-1.4) 07/05/17 17:15 PTT (Actin FS) 26.6 SECONDS (26.0-38.0) 07/05/17 17:15 Specimen Source Arterial 07/10/17 13:23 Sample Site Right Radial 07/10/17 13:23 pH 7.48 (7.35-7.45) H 07/10/17 13:23 pCO2 41.0 mmHg (35.0-45.0) 07/10/17 13:23 pO2 89.0 mmHg (80.0-100.0) 07/10/17 13:23 HCO3 29.9 mEq/L (20.0-26.0) H 07/10/17 13:23 Base Excess 6.4 mEq/L (-3.0-3.0) H 07/10/17 13:23 O2 Saturation 97.0 % (92.0-100.0) 07/10/17 13:23 Blu Test Positive 07/10/17 13:23 Vent Rate NA 07/10/17 13:23 Inspired O2 28 07/10/17 13:23 Tidal Volume NA 07/10/17 13:23 PEEP NA 07/10/17 13:23 Pressure (ins/psv/peep) NA 07/10/17 13:23 Critical Value SH 07/10/17 13:23 Sodium 143 mEq/L (136-145) 07/11/17 05:15 Potassium 3.4 mEq/L (3.5-5.1) L 07/11/17 05:15 Chloride 110 mEq/L (98-107) H 07/11/17 05:15 Carbon Dioxide 30.1 mEq/L (21.0-31.0) 07/11/17 05:15 Anion Gap 6.3 (7.0-16.0) L 07/11/17 05:15 BUN 24 mg/dL (7-25) 07/11/17 05:15 Creatinine 0.5 mg/dL (0.6-1.2) L 07/11/17 05:15 Est GFR ( Amer) TNP 07/11/17 05:15 Est GFR (Non-Af Amer) TNP 07/11/17 05:15 BUN/Creatinine Ratio 48.0 07/11/17 05:15 Glucose 181 mg/dL (70-105) H 07/11/17 05:15 POC Glucose 169 MG/DL (70 - 105) H 07/11/17 05:20 Hemoglobin A1c % 5.0 % (4.0-6.0) 07/05/17 16:25 Whole Bld Lactic Acid 1.96 mmol/L (0.60-1.99) 07/07/17 06:15 Calcium 7.8 mg/dL (8.6-10.3) L 07/11/17 05:15 Phosphorus 2.4 mg/dL (2.5-5.0) L 07/11/17 05:15 Magnesium 1.7 mg/dL (1.9-2.7) L 07/11/17 05:15 Total Bilirubin 1.3 mg/dL (0.3-1.0) H 07/09/17 06:50 AST 42 U/L (13-39) H 07/09/17 06:50 ALT 45 U/L (7-52) 07/09/17 06:50 Alkaline Phosphatase 171 U/L (34-104) H 07/09/17 06:50 Total Protein 5.7 gm/dL (6.0-8.3) L 07/09/17 06:50 Albumin 2.0 gm/dL (3.7-5.3) L 07/09/17 06:50 Globulin 3.7 gm/dL 07/09/17 06:50 Albumin/Globulin Ratio 0.5 (1.0-1.8) L 07/09/17 06:50 Prealbumin 6 mg/dL (9-32) L 07/06/17 06:30 Triglycerides 97 mg/dL (<150) 07/06/17 06:30 Cholesterol 76 mg/dL (<200) 07/06/17 06:30 Vancomycin Trough 13.8 ug/mL (5-10) H 07/10/17 22:30 - Physical Exam Vitals and I&O: Vital Signs Temp 98.5 F 07/11/17 04:00 Pulse 89 07/11/17 08:39 Resp 22 07/11/17 07:55 BP 99/63 07/11/17 08:39 Pulse Ox 100 07/11/17 07:55 Intake & Output 07/10/17 07/11/17 07/11/17 18:59 06:59 18:59 Intake Total 1480 990 Balance 1480 990 Weight (lbs) 59.506 kg 59.421 kg Intake: Intake, IV Amount 300 350 Meropenem 500 mg In 50 100 Sodium Chloride 0.9% 50 ml @ 50 mls/hr IV Q8H [facility] Rx#:[id number] Vancomycin HCl 0.75 gm In 250 250 Sodium Chloride 0.9% 250 ml @ 165 mls/hr IV Q12H [facility] Rx#:[id number] Tube Feeding 780 440 Other 400 200 Other: # Voids 3 3 # Bowel Movements 1 2 Stool Characteristics Soft Soft Brown Brown Weight Source Bedscale Bedscale Active Medications: Current Medications Acetaminophen (Tylenol 650mg/20.3ml Suspension) 650 mg GT Q6HR PRN PRN Reason: Fever > 101 Stop: 09/04/17 09:07 Last Admin: 07/07/17 09:01 Dose: 650 mg Albuterol Sulfate (Albuterol 2.5mg/3ml Neb Ud) 2.5 mg HHN Q6HRT [facility] Stop: 09/05/17 00:59 Last Admin: 07/11/17 07:41 Dose: 2.5 mg Budesonide (Pulmicort) 0.5 mg HHN BIDRT [facility] Stop: 09/08/17 18:59 Last Admin: 07/11/17 07:41 Dose: 0.5 mg [place] Oil/[place] Balsam/Trypsin (Venelex) 1 appl TP DAILY [facility] Stop: 09/05/17 08:59 Last Admin: 07/11/17 08:35 Dose: 1 appl Digoxin (Lanoxin) 0.125 mg IVP Q48HR [facility] Stop: 09/04/17 09:59 Last Admin: 07/10/17 10:25 Dose: 0.125 mg Diltiazem HCl (Cardizem) 60 mg GT Q8HR [facility] Stop: 09/04/17 12:59 Last Admin: 07/11/17 05:08 Dose: Not Given Diltiazem HCl (Cardizem) 5 mg IVP Q6H PRN PRN Reason: HR ABOVE 120 Stop: 07/12/17 07:52 Furosemide (Lasix) 20 mg IVP Q12HR [facility] Stop: 09/04/17 20:59 Last Admin: 07/11/17 08:34 Dose: Not Given Meropenem 500 mg/ Sodium (Chloride) 50 mls @ 50 mls/hr IV Q8H [facility] Stop: 09/04/17 12:59 Last Infusion: 07/11/17 05:30 Dose: Infused Vancomycin HCl 0.75 gm/ Sodium (Chloride) 250 mls @ 165 mls/hr IV Q12H [facility] Stop: 09/07/17 10:59 Last Infusion: 07/11/17 02:01 Dose: Infused Potassium Phosphate 40 mmole/ (Sodium Chloride) 263.3333 mls @ 42.5 mls/hr IV X1 ONE Stop: 07/11/17 16:11 Magnesium Sulfate (Magnesium Sulfate Premix) 2 gm in 50 mls @ 25 mls/hr IV X1 ONE Stop: 07/11/17 11:40 Insulin Aspart (Novolog Insulin Sliding Scale) 0 units SUBQ Q6HR [facility] PRN Reason: Protocol Stop: 09/04/17 11:59 Last Admin: 07/11/17 06:29 Dose: 2 units Lisinopril (Zestril) 10 mg GT Q12HR [facility] Stop: 09/04/17 20:59 Last Admin: 07/11/17 08:39 Dose: Not Given Metoclopramide HCl (Reglan) 10 mg GT Q8HR [facility] Stop: 09/04/17 12:59 Last Admin: 07/11/17 05:08 Dose: 10 mg Miscellaneous (Vancomycin Iv Per Pharmacy) 1 ea [facility] DAILY [facility] Stop: 09/05/17 08:59 Morphine Sulfate (Morphine) 2 mg IV Q6H PRN PRN Reason: pain Stop: 09/04/17 18:01 Last Admin: 07/08/17 21:23 Dose: 2 mg Mupirocin (Bactroban Oint) 1 appl NS BID [facility] Stop: 07/12/17 09:01 Last Admin: 07/11/17 08:36 Dose: 1 appl Pantoprazole Sodium (Protonix) 40 mg IVP BID [facility] Stop: 09/03/17 21:59 Last Admin: 07/11/17 08:37 Dose: 40 mg General: No acute distress, Mild distress Cardiovascular: Regular rate, Normal S1, Normal S2, Other (tachy) Lungs: Other (rales) Abdomen: Soft, Other (G tube/ surgical dressing), no Distended - Procedures Procedures: Procedures Procedure Code Date BYPASS STOMACH TO CUTANEOUS, OPEN APPROACH [id number] 07/05/17 EMERGENCY DEPT VISIT 29138 05/14/11 FREEING OF BOWEL ADHESION 48098 07/05/17 INTRODUCTION OF OTH THERAP SUBST INTO UP GI, PERC APPROACH [id number] 07/05/17 OTHER GROUP THERAPY 94.44 05/14/[address] PLACE GASTROSTOMY TUBE 48122 07/05/17 RECREATIONAL THERAPY 93.81 05/14/11 RELEASE STOMACH, OPEN APPROACH [id number] 07/05/17 STOMACH SURGERY PROCEDURE 90601 07/05/17 Nutritional Asmnt/Malnutr-PDOC - Dietary Evaluation Malnutrition Findings (Please click <Entered> for more info): Nutritional Asmnt/Malnutrition Start: 07/06/17 15: 40 Text: Status: Complete Freq: Document 07/06/17 15:55 BERTO (Rec: 07/06/17 16:09 [facility] Nutritional Asmnt/Malnutrition Patient General Information Nutritional Screening High Risk Diagnosis osteomyelitis, PNA, Gtube infection and fustula Pertinent Medical Hx/Surgical Hx no H&P at this time Subjective Information Pt had Gtube replacement today per nurse note. TPN started this afternoon. Current Diet Order/ Nutrition Support TPN D15% AA5% Lipid 20% 200ml at 50ml/hr Pertinent Medications lasix, novolog, reglan, k phos , vancomycin Pertinent Labs 07/06 K 3.2, Cr 0.4, glucose 166 , POC 172, Ca 8.0 Nutritional Hx/Data Height 1.47 m Height (Calculated Centimeters) 147.3 Current Weight (lbs) 53.07 kg Weight (Calculated Kilograms) 53.1 Weight (Calculated Grams) 51142.3 [place] Body Weight 96 Body Mass Index (BMI) 24.4 Weight Status Approriate GI Symptoms GI Symptoms None Last BM 07/05 Difficult in: None Skin Integrity/Comment: pressure area to buttocks, right foot, decubitus to left foot, reddened to right elbow Current %PO Negligible < 25% Estimated Nutritional Goals BEE in Kcals: Using Current wt Calories/Kcals/Kg 25-30 Kcals Calculated 1072-5211 Protein: Using Current wt Protein g/k-1.2 Protein Calculated 53-63 Fluid: ml 1325-1590ml (1ml/kcal) Nutritional Problem 1. Problem Problem altered nutrition related labs Etiology electrolytes imbalanced, endocrine dysfunction Signs/Symptoms: K 3.2, Cr 0.4, glucose 166, POC 172, Ca 8.0 Intervention/Recommendation Comments 1. Continue with current TPN regimen. It provides 1252kcal, 180g CHO (2.35mg/kg/min) and 60g protein, meeting 95% of calorie needs and 100% of protein needs. 2. If tube feeding needed, RD availeble for consult. 3. Monitor nutrition support, wt, labs and skin integrity 4. F/U high risk in 2 days, 5/ 3 Expected Outcomes/Goals Expected Outcomes/Goals 1. Pt to meet at least 75% of nutritional needs via nutrition support with tolerance 2. Wt stability, skin to remain intact, labs to approach WNL.
[2017-07-11] MEDS ORDERED: Potassium Phosphate 40 MMOLE in Sodium Chloride 0.9% 250 ML IV ONE (10:00)
--- NOTE | 2017-07-11 11:03 | GI Progress Note ---
Subjective - Review of Systems Service Date: 07/11/17 Events since last encounter: No events Subjective: Non Verbal no new syptoms per nurse Objective - Results Result Diagrams: 07/09/17 06:50 07/11/17 05:15 Recent Labs: Laboratory Last Values WBC 8.0 Th/cmm (4.8-10.8) 07/09/17 06:50 RBC 3.15 Mil/cmm (3.80-5.20) L 07/09/17 06:50 Hgb 9.9 gm/dL (12-16) L 07/09/17 06:50 Hct 29.2 % (41.0-60) L 07/09/17 06:50 MCV 92.8 fl (81-100) 07/09/17 06:50 MCH 31.5 pg (27.0-31.0) H 07/09/17 06:50 MCHC Differential 33.9 pg (28.0-36.0) 07/09/17 06:50 RDW 15.1 % (11.5-20.0) 07/09/17 06:50 Plt Count 265 Th/cmm (150-400) 07/09/17 06:50 MPV 9.4 fl 07/09/17 06:50 Neutrophils % 83.1 % (40.0-80.0) H 07/09/17 06:50 Lymphocytes % 8.2 % (20.0-50.0) L 07/09/17 06:50 Monocytes % 7.3 % (2.0-10.0) 07/09/17 06:50 Eosinophils % 1.2 % (0.0-5.0) 07/09/17 06:50 Basophils % 0.2 % (0.0-2.0) 07/09/17 06:50 PT 10.4 SECONDS (9.5-11.5) 07/05/17 17:15 INR 1.00 (0.5-1.4) 07/05/17 17:15 PTT (Actin FS) 26.6 SECONDS (26.0-38.0) 07/05/17 17:15 Specimen Source Arterial 07/10/17 13:23 Sample Site Right Radial 07/10/17 13:23 pH 7.48 (7.35-7.45) H 07/10/17 13:23 pCO2 41.0 mmHg (35.0-45.0) 07/10/17 13:23 pO2 89.0 mmHg (80.0-100.0) 07/10/17 13:23 HCO3 29.9 mEq/L (20.0-26.0) H 07/10/17 13:23 Base Excess 6.4 mEq/L (-3.0-3.0) H 07/10/17 13:23 O2 Saturation 97.0 % (92.0-100.0) 07/10/17 13:23 Blu Test Positive 07/10/17 13:23 Vent Rate NA 07/10/17 13:23 Inspired O2 28 07/10/17 13:23 Tidal Volume NA 07/10/17 13:23 PEEP NA 07/10/17 13:23 Pressure (ins/psv/peep) NA 07/10/17 13:23 Critical Value SH 07/10/17 13:23 Sodium 143 mEq/L (136-145) 07/11/17 05:15 Potassium 3.4 mEq/L (3.5-5.1) L 07/11/17 05:15 Chloride 110 mEq/L (98-107) H 07/11/17 05:15 Carbon Dioxide 30.1 mEq/L (21.0-31.0) 07/11/17 05:15 Anion Gap 6.3 (7.0-16.0) L 07/11/17 05:15 BUN 24 mg/dL (7-25) 07/11/17 05:15 Creatinine 0.5 mg/dL (0.6-1.2) L 07/11/17 05:15 Est GFR ( Amer) TNP 07/11/17 05:15 Est GFR (Non-Af Amer) TNP 07/11/17 05:15 BUN/Creatinine Ratio 48.0 07/11/17 05:15 Glucose 181 mg/dL (70-105) H 07/11/17 05:15 POC Glucose 169 MG/DL (70 - 105) H 07/11/17 05:20 Hemoglobin A1c % 5.0 % (4.0-6.0) 07/05/17 16:25 Whole Bld Lactic Acid 1.96 mmol/L (0.60-1.99) 07/07/17 06:15 Calcium 7.8 mg/dL (8.6-10.3) L 07/11/17 05:15 Phosphorus 2.4 mg/dL (2.5-5.0) L 07/11/17 05:15 Magnesium 1.7 mg/dL (1.9-2.7) L 07/11/17 05:15 Total Bilirubin 1.3 mg/dL (0.3-1.0) H 07/09/17 06:50 AST 42 U/L (13-39) H 07/09/17 06:50 ALT 45 U/L (7-52) 07/09/17 06:50 Alkaline Phosphatase 171 U/L (34-104) H 07/09/17 06:50 Total Protein 5.7 gm/dL (6.0-8.3) L 07/09/17 06:50 Albumin 2.0 gm/dL (3.7-5.3) L 07/09/17 06:50 Globulin 3.7 gm/dL 07/09/17 06:50 Albumin/Globulin Ratio 0.5 (1.0-1.8) L 07/09/17 06:50 Prealbumin 6 mg/dL (9-32) L 07/06/17 06:30 Triglycerides 97 mg/dL (<150) 07/06/17 06:30 Cholesterol 76 mg/dL (<200) 07/06/17 06:30 Vancomycin Trough 13.8 ug/mL (5-10) H 07/10/17 22:30 - Physical Exam Vitals and I&O: Vital Signs Temp 98.5 F 07/11/17 04:00 Pulse 89 07/11/17 08:39 Resp 22 07/11/17 07:55 BP 99/63 07/11/17 08:39 Pulse Ox 100 07/11/17 07:55 Intake & Output 07/10/17 07/11/17 07/11/17 18:59 06:59 18:59 Intake Total 1480 990 Balance 1480 990 Weight (lbs) 59.506 kg 59.421 kg Intake: Intake, IV Amount 300 350 Meropenem 500 mg In 50 100 Sodium Chloride 0.9% 50 ml @ 50 mls/hr IV Q8H [facility] Rx#:[id number] Vancomycin HCl 0.75 gm In 250 250 Sodium Chloride 0.9% 250 ml @ 165 mls/hr IV Q12H [facility] Rx#:[id number] Tube Feeding 780 440 Other 400 200 Other: # Voids 3 3 # Bowel Movements 1 2 Stool Characteristics Soft Soft Brown Brown Weight Source Bedscale Bedscale Active Medications: Current Medications Acetaminophen (Tylenol 650mg/20.3ml Suspension) 650 mg GT Q6HR PRN PRN Reason: Fever > 101 Stop: 09/04/17 09:07 Last Admin: 07/07/17 09:01 Dose: 650 mg Albuterol Sulfate (Albuterol 2.5mg/3ml Neb Ud) 2.5 mg HHN Q6HRT MAI Stop: 09/05/17 00:59 Last Admin: 07/11/17 07:41 Dose: 2.5 mg Budesonide (Pulmicort) 0.5 mg HHN BIDRT MAI Stop: 09/08/17 18:59 Last Admin: 07/11/17 07:41 Dose: 0.5 mg [place] Oil/[place] Balsam/Trypsin (Venelex) 1 appl TP DAILY [facility]I Stop: 09/05/17 08:59 Last Admin: 07/11/17 08:35 Dose: 1 appl Digoxin (Lanoxin) 0.125 mg IVP Q48HR [facility] Stop: 09/04/17 09:59 Last Admin: 07/10/17 10:25 Dose: 0.125 mg Diltiazem HCl (Cardizem) 60 mg GT Q8HR [facility] Stop: 09/04/17 12:59 Last Admin: 07/11/17 05:08 Dose: Not Given Diltiazem HCl (Cardizem) 5 mg IVP Q6H PRN PRN Reason: HR ABOVE 120 Stop: 07/12/17 07:52 Furosemide (Lasix) 20 mg IVP Q12HR [facility] Stop: 09/04/17 20:59 Last Admin: 07/11/17 08:34 Dose: Not Given Meropenem 500 mg/ Sodium (Chloride) 50 mls @ 50 mls/hr IV Q8H [facility] Stop: 09/04/17 12:59 Last Infusion: 07/11/17 05:30 Dose: Infused Vancomycin HCl 0.75 gm/ Sodium (Chloride) 250 mls @ 165 mls/hr IV Q12H [facility] Stop: 09/07/17 10:59 Last Infusion: 07/11/17 02:01 Dose: Infused Potassium Phosphate 40 mmole/ (Sodium Chloride) 263.3333 mls @ 42.5 mls/hr IV X1 ONE Stop: 07/11/17 16:11 Last Admin: 07/11/17 10:15 Dose: 42.5 mls/hr Magnesium Sulfate (Magnesium Sulfate Premix) 2 gm in 50 mls @ 25 mls/hr IV X1 ONE Stop: 07/11/17 11:40 Last Admin: 07/11/17 09:50 Dose: 25 mls/hr Insulin Aspart (Novolog Insulin Sliding Scale) 0 units SUBQ Q6HR [facility]I PRN Reason: Protocol Stop: 09/04/17 11:59 Last Admin: 07/11/17 06:29 Dose: 2 units Lisinopril (Zestril) 10 mg GT Q12HR [facility] Stop: 09/04/17 20:59 Last Admin: 07/11/17 08:39 Dose: Not Given Metoclopramide HCl (Reglan) 10 mg GT Q8HR [facility] Stop: 09/04/17 12:59 Last Admin: 07/11/17 05:08 Dose: 10 mg Miscellaneous (Vancomycin Iv Per Pharmacy) 1 ea [facility] DAILY [facility] Stop: 09/05/17 08:59 Morphine Sulfate (Morphine) 2 mg IV Q6H PRN PRN Reason: pain Stop: 09/04/17 18:01 Last Admin: 07/08/17 21:23 Dose: 2 mg Mupirocin (Bactroban Oint) 1 appl NS BID [facility] Stop: 07/12/17 09:01 Last Admin: 07/11/17 08:36 Dose: 1 appl Pantoprazole Sodium (Protonix) 40 mg IVP BID [facility] Stop: 09/03/17 21:59 Last Admin: 07/11/17 08:37 Dose: 40 mg General: Mild distress Cardiovascular: Regular rate, Normal S1, Normal S2, Other (tachy) Lungs: Other (rales) Abdomen: Soft, Other (G tube/ surgical dressing), no Distended - Procedures Procedures: Procedures Procedure Code Date BYPASS STOMACH TO CUTANEOUS, OPEN APPROACH [id number] 07/05/17 EMERGENCY DEPT VISIT 91362 05/14/11 FREEING OF BOWEL ADHESION 80884 07/05/17 INTRODUCTION OF OTH THERAP SUBST INTO UP GI, PERC APPROACH [id number] 07/05/17 OTHER GROUP THERAPY 94.44 05/14/11 PLACE GASTROSTOMY TUBE 81007 07/05/17 RECREATIONAL THERAPY 93.81 05/14/11 RELEASE STOMACH, OPEN APPROACH [id number] 07/05/17 STOMACH SURGERY PROCEDURE 92268 07/05/17 Assessment/Plan - Assessment Assessment: 1. Dysphagia 2. Bleeding from G tube site - Plan Plan: 1. Dysphagia Cont tube feeding 2. Bleeding from G tube site S/P surgery. No bleeding H/H stable
--- NOTE | 2017-07-11 11:08 | Diagnostic Imaging Report ---
Portable chest x-ray HISTORY: Shortness of breath Compared with prior exam of July 10, 2017, the heart is enlarged. Persistent bilateral pleural effusions. There does appear to be pulmonary vascular redistribution consistent with a degree of congestive heart failure. IMPRESSION: 1. Persistent cardiomegaly and bilateral pleural effusions and changes suggesting congestive heart failure. Clinical correlation is needed.
[2017-07-11 16:02] LABS: pH 7.52 (7.35-7.45)
[2017-07-11 16:03] LABS: ALLEN TEST Positive
--- NOTE | 2017-07-11 16:30 | Infectious Disease Prog Note ---
Infectious Disease Subjective - Review of Systems Service Date: 07/11/17 Subjective: patient remained in the ICU, No fever. short of breath as before, no new change. Infectious Disease Objective - Results Result Diagrams: 07/09/17 06:50 07/11/17 05:15 Recent Labs: Laboratory Last Values WBC 8.0 Th/cmm (4.8-10.8) 07/09/17 06:50 RBC 3.15 Mil/cmm (3.80-5.20) L 07/09/17 06:50 Hgb 9.9 gm/dL (12-16) L 07/09/17 06:50 Hct 29.2 % (41.0-60) L 07/09/17 06:50 MCV 92.8 fl (81-100) 07/09/17 06:50 MCH 31.5 pg (27.0-31.0) H 07/09/17 06:50 MCHC Differential 33.9 pg (28.0-36.0) 07/09/17 06:50 RDW 15.1 % (11.5-20.0) 07/09/17 06:50 Plt Count 265 Th/cmm (150-400) 07/09/17 06:50 MPV 9.4 fl 07/09/17 06:50 Neutrophils % 83.1 % (40.0-80.0) H 07/09/17 06:50 Lymphocytes % 8.2 % (20.0-50.0) L 07/09/17 06:50 Monocytes % 7.3 % (2.0-10.0) 07/09/17 06:50 Eosinophils % 1.2 % (0.0-5.0) 07/09/17 06:50 Basophils % 0.2 % (0.0-2.0) 07/09/17 06:50 PT 10.4 SECONDS (9.5-11.5) 07/05/17 17:15 INR 1.00 (0.5-1.4) 07/05/17 17:15 PTT (Actin FS) 26.6 SECONDS (26.0-38.0) 07/05/17 17:15 Specimen Source Arterial 07/11/17 15:50 Sample Site Right Radial 07/11/17 15:50 pH 7.52 (7.35-7.45) H 07/11/17 15:50 pCO2 38.0 mmHg (35.0-45.0) 07/11/17 15:50 pO2 76.0 mmHg (80.0-100.0) L 07/11/17 15:50 HCO3 30.8 mEq/L (20.0-26.0) H 07/11/17 15:50 Base Excess 7.6 mEq/L (-3.0-3.0) H 07/11/17 15:50 O2 Saturation 96.0 % (92.0-100.0) 07/11/17 15:50 Blu Test Positive 07/11/17 15:50 Vent Rate 12 07/11/17 15:50 Inspired O2 28 07/11/17 15:50 Tidal Volume NA 07/11/17 15:50 PEEP 6 07/11/17 15:50 Pressure (ins/psv/peep) 6 07/11/17 15:50 Critical Value LZHANG 07/11/17 15:50 Sodium 143 mEq/L (136-145) 07/11/17 05:15 Potassium 3.4 mEq/L (3.5-5.1) L 07/11/17 05:15 Chloride 110 mEq/L (98-107) H 07/11/17 05:15 Carbon Dioxide 30.1 mEq/L (21.0-31.0) 07/11/17 05:15 Anion Gap 6.3 (7.0-16.0) L 07/11/17 05:15 BUN 24 mg/dL (7-25) 07/11/17 05:15 Creatinine 0.5 mg/dL (0.6-1.2) L 07/11/17 05:15 Est GFR ( Amer) TNP 07/11/17 05:15 Est GFR (Non-Af Amer) [facility] 07/11/17 05:15 BUN/Creatinine Ratio 48.0 07/11/17 05:15 Glucose 181 mg/dL (70-105) H 07/11/17 05:15 POC Glucose 207 MG/DL (70 - 105) H 07/11/17 12:04 Hemoglobin A1c % 5.0 % (4.0-6.0) 07/05/17 16:25 Whole Bld Lactic Acid 1.96 mmol/L (0.60-1.99) 07/07/17 06:15 Calcium 7.8 mg/dL (8.6-10.3) L 07/11/17 05:15 Phosphorus 2.4 mg/dL (2.5-5.0) L 07/11/17 05:15 Magnesium 1.7 mg/dL (1.9-2.7) L 07/11/17 05:15 Total Bilirubin 1.3 mg/dL (0.3-1.0) H 07/09/17 06:50 AST 42 U/L (13-39) H 07/09/17 06:50 ALT 45 U/L (7-52) 07/09/17 06:50 Alkaline Phosphatase 171 U/L (34-104) H 07/09/17 06:50 Total Protein 5.7 gm/dL (6.0-8.3) L 07/09/17 06:50 Albumin 2.0 gm/dL (3.7-5.3) L 07/09/17 06:50 Globulin 3.7 gm/dL 07/09/17 06:50 Albumin/Globulin Ratio 0.5 (1.0-1.8) L 07/09/17 06:50 Prealbumin 6 mg/dL (9-32) L 07/06/17 06:30 Triglycerides 97 mg/dL (<150) 07/06/17 06:30 Cholesterol 76 mg/dL (<200) 07/06/17 06:30 Vancomycin Trough 13.8 ug/mL (5-10) H 07/10/17 22:30 - Physical Exam Vitals and I&O: Vital Signs Temp 97.9 F 07/11/17 14:00 Pulse 87 07/11/17 14:00 Resp 37 07/11/17 15:41 BP 114/64 07/11/17 14:00 Pulse Ox 99 07/11/17 15:41 Intake & Output 07/10/17 07/11/17 07/11/17 18:59 06:59 18:59 Intake Total 1480 990 250 Balance 1480 990 250 Weight (lbs) 59.506 kg 59.421 kg Intake: Intake, IV Amount 300 350 250 Meropenem 500 mg In 50 100 Sodium Chloride 0.9% 50 ml @ 50 mls/hr IV Q8H [facility] Rx#:[id number] Vancomycin HCl 0.75 gm In 250 250 250 Sodium Chloride 0.9% 250 ml @ 165 mls/hr IV Q12H [facility] Rx#:[id number] Tube Feeding 780 440 Other 400 200 Other: # Voids 3 3 # Bowel Movements 1 2 Stool Characteristics Soft Soft Brown Brown Weight Source Bedscale Bedscale Active Medications: Current Medications Acetaminophen (Tylenol 650mg/20.3ml Suspension) 650 mg GT Q6HR PRN PRN Reason: Fever > 101 Stop: 09/04/17 09:07 Last Admin: 07/11/17 15:35 Dose: 650 mg Albuterol Sulfate (Albuterol 2.5mg/3ml Neb Ud) 2.5 mg HHN Q6HRT [facility] Stop: 09/05/17 00:59 Last Admin: 07/11/17 13:34 Dose: 2.5 mg Budesonide (Pulmicort) 0.5 mg HHN BIDRT [facility] Stop: 09/08/17 18:59 Last Admin: 07/11/17 07:41 Dose: 0.5 mg [place] Oil/[place] Balsam/Trypsin (Venelex) 1 appl TP DAILY [facility] Stop: 09/05/17 08:59 Last Admin: 07/11/17 08:35 Dose: 1 appl Digoxin (Lanoxin) 0.125 mg IVP Q48HR [facility] Stop: 09/04/17 09:59 Last Admin: 07/10/17 10:25 Dose: 0.125 mg Diltiazem HCl (Cardizem) 60 mg GT Q8HR [facility] Stop: 09/04/17 12:59 Last Admin: 07/11/17 12:34 Dose: 60 mg Diltiazem HCl (Cardizem) 5 mg IVP Q6H PRN PRN Reason: HR ABOVE 120 Stop: 07/12/17 07:52 Furosemide (Lasix) 20 mg IVP Q12HR [facility] Stop: 09/04/17 20:59 Last Admin: 07/11/17 08:34 Dose: Not Given Meropenem 500 mg/ Sodium (Chloride) 50 mls @ 50 mls/hr IV Q8H [facility] Stop: 09/04/17 12:59 Last Admin: 07/11/17 12:34 Dose: 50 mls/hr Vancomycin HCl 0.75 gm/ Sodium (Chloride) 250 mls @ 165 mls/hr IV Q12H [facility] Stop: 09/07/17 10:59 Last Infusion: 07/11/17 12:35 Dose: Infused Insulin Aspart (Novolog Insulin Sliding Scale) 0 units SUBQ Q6HR [facility] PRN Reason: Protocol Stop: 09/04/17 11:59 Last Admin: 07/11/17 12:07 Dose: 4 units Lisinopril (Zestril) 10 mg GT Q12HR [facility] Stop: 09/04/17 20:59 Last Admin: 07/11/17 08:39 Dose: Not Given Metoclopramide HCl (Reglan) 10 mg GT Q8HR [facility] Stop: 09/04/17 12:59 Last Admin: 07/11/17 12:34 Dose: 10 mg Miscellaneous (Vancomycin Iv Per Pharmacy) 1 ea [facility] DAILY [facility] Stop: 09/05/17 08:59 Morphine Sulfate (Morphine) 2 mg IV Q6H PRN PRN Reason: pain Stop: 09/04/17 18:01 Last Admin: 07/08/17 21:23 Dose: 2 mg Mupirocin (Bactroban Oint) 1 appl NS BID [facility] Stop: 07/12/17 09:01 Last Admin: 07/11/17 08:36 Dose: 1 appl Pantoprazole Sodium (Protonix) 40 mg IVP BID [facility] Stop: 09/03/17 21:59 Last Admin: 07/11/17 08:37 Dose: 40 mg General: no acute distress, cachectic HEENT: atraumatic, normocephalic, PERRLA, EOMI Neck: supple, no thyromegaly Cardiovascular: S1S2, regular Lungs: clear to percussion, crackles, other (crackles.) Abdomen: soft, other ( g tube ok), no tender, no distended, no mass Extremities: no cyanosis, no clubbing, no edema Neurological: awake, alert, other (flexion contracture.) Skin: other (bilateral foot ulcers.) - Procedures Procedures: Procedures Procedure Code Date BYPASS STOMACH TO CUTANEOUS, OPEN APPROACH [id number] 07/05/17 EMERGENCY DEPT VISIT 66229 05/14/11 FREEING OF BOWEL ADHESION 37623 07/05/17 INTRODUCTION OF OTH THERAP SUBST INTO UP GI, PERC APPROACH [id number] 07/05/17 OTHER GROUP THERAPY 94.44 05/14/[address] PLACE GASTROSTOMY TUBE 54500 07/05/17 RECREATIONAL THERAPY 93.81 05/14/11 RELEASE STOMACH, OPEN APPROACH [id number] 07/05/17 STOMACH SURGERY PROCEDURE 31239 07/05/17 Infectious Disease Assmt/Plan - Assessment Assessment: 1. 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 New G-tube was placed in. 2. Osteomyelitis, complicated wound of the left foot. 3. Bilateral foot ulcers. 4. UTI. 5. Up the wall cellulitis. 6. Hypertension. 7. Diabetes mellitus type 2. 8. Severe dementia. 9. COPD. 10. CHF, cardiomyopathy, atrial fibrillation. 11. Depression. 12. Schizoaffective disorder. 13. Gastroesophageal reflux disease. 14. Seizure disorder. 15. History of cataract. - Plan Plan: Continue vancomycin and meropenem. Wound care. G tube feeding as tolerated. Pulmonary consult Dr Leiva was appreciated. Nutritional Asmnt/Malnutr-PDOC - Dietary Evaluation Malnutrition Findings (Please click <Entered> for more info): Nutritional Asmnt/Malnutrition Start: 07/06/17 15: 40 Text: Status: Complete Freq: Document 07/06/17 15:55 [facility] (Rec: 07/06/17 16:09 [facility] [id number]) Nutritional Asmnt/Malnutrition Patient General Information Nutritional Screening High Risk Diagnosis osteomyelitis, PNA, Gtube infection and fustula Pertinent Medical Hx/Surgical Hx no H&P at this time Subjective Information Pt had Gtube replacement today per nurse note. TPN started this afternoon. Current Diet Order/ Nutrition Support TPN D15% AA5% Lipid 20% 200ml at 50ml/hr Pertinent Medications lasix, novolog, reglan, k phos , vancomycin Pertinent Labs 07/06 K 3.2, Cr 0.4, glucose 166 , POC 172, Ca 8.0 Nutritional Hx/Data Height 1.47 m Height (Calculated Centimeters) 147.3 Current Weight (lbs) 53.07 kg Weight (Calculated Kilograms) 53.1 Weight (Calculated Grams) 17023.3 [place] Body Weight 96 Body Mass Index (BMI) 24.4 Weight Status Approriate GI Symptoms GI Symptoms None Last BM 07/05 Difficult in: None Skin Integrity/Comment: pressure area to buttocks, right foot, decubitus to left foot, reddened to right elbow Current %PO Negligible < 25% Estimated Nutritional Goals BEE in Kcals: Using Current wt Calories/Kcals/Kg 25-30 Kcals Calculated 8401-3903 Protein: Using Current wt Protein g/k-1.2 Protein Calculated 53-63 Fluid: ml 1325-1590ml (1ml/kcal) Nutritional Problem 1. Problem Problem altered nutrition related labs Etiology electrolytes imbalanced, endocrine dysfunction Signs/Symptoms: K 3.2, Cr 0.4, glucose 166, POC 172, Ca 8.0 Intervention/Recommendation Comments 1. Continue with current TPN regimen. It provides 1252kcal, 180g CHO (2.35mg/kg/min) and 60g protein, meeting 95% of calorie needs and 100% of protein needs. 2. If tube feeding needed, RD availeble for consult. 3. Monitor nutrition support, wt, labs and skin integrity 4. F/U high risk in 2 days, 5/ 3 Expected Outcomes/Goals Expected Outcomes/Goals 1. Pt to meet at least 75% of nutritional needs via nutrition support with tolerance 2. Wt stability, skin to remain intact, labs to approach WNL.
--- NOTE | 2017-07-11 18:29 | General Progress Note ---
Subjective - Review of Systems Service Date: 07/11/17 Subjective: Patient seen and examined in ICU breathing seems better afebrile Objective - Results Result Diagrams: 07/09/17 06:50 07/11/17 05:15 Recent Labs: Laboratory Last Values WBC 8.0 Th/cmm (4.8-10.8) 07/09/17 06:50 RBC 3.15 Mil/cmm (3.80-5.20) L 07/09/17 06:50 Hgb 9.9 gm/dL (12-16) L 07/09/17 06:50 Hct 29.2 % (41.0-60) L 07/09/17 06:50 MCV 92.8 fl (81-100) 07/09/17 06:50 MCH 31.5 pg (27.0-31.0) H 07/09/17 06:50 MCHC Differential 33.9 pg (28.0-36.0) 07/09/17 06:50 RDW 15.1 % (11.5-20.0) 07/09/17 06:50 Plt Count 265 Th/cmm (150-400) 07/09/17 06:50 MPV 9.4 fl 07/09/17 06:50 Neutrophils % 83.1 % (40.0-80.0) H 07/09/17 06:50 Lymphocytes % 8.2 % (20.0-50.0) L 07/09/17 06:50 Monocytes % 7.3 % (2.0-10.0) 07/09/17 06:50 Eosinophils % 1.2 % (0.0-5.0) 07/09/17 06:50 Basophils % 0.2 % (0.0-2.0) 07/09/17 06:50 PT 10.4 SECONDS (9.5-11.5) 07/05/17 17:15 INR 1.00 (0.5-1.4) 07/05/17 17:15 PTT (Actin FS) 26.6 SECONDS (26.0-38.0) 07/05/17 17:15 Specimen Source Arterial 07/11/17 15:50 Sample Site Right Radial 07/11/17 15:50 pH 7.52 (7.35-7.45) H 07/11/17 15:50 pCO2 38.0 mmHg (35.0-45.0) 07/11/17 15:50 pO2 76.0 mmHg (80.0-100.0) L 07/11/17 15:50 HCO3 30.8 mEq/L (20.0-26.0) H 07/11/17 15:50 Base Excess 7.6 mEq/L (-3.0-3.0) H 07/11/17 15:50 O2 Saturation 96.0 % (92.0-100.0) 07/11/17 15:50 Blu Test Positive 07/11/17 15:50 Vent Rate 12 07/11/17 15:50 Inspired O2 28 07/11/17 15:50 Tidal Volume NA 07/11/17 15:50 PEEP 6 07/11/17 15:50 Pressure (ins/psv/peep) 6 07/11/17 15:50 Critical Value LZHANG 07/11/17 15:50 Sodium 143 mEq/L (136-145) 07/11/17 05:15 Potassium 3.4 mEq/L (3.5-5.1) L 07/11/17 05:15 Chloride 110 mEq/L (98-107) H 07/11/17 05:15 Carbon Dioxide 30.1 mEq/L (21.0-31.0) 07/11/17 05:15 Anion Gap 6.3 (7.0-16.0) L 07/11/17 05:15 BUN 24 mg/dL (7-25) 07/11/17 05:15 Creatinine 0.5 mg/dL (0.6-1.2) L 07/11/17 05:15 Est GFR ( Amer) TNP 07/11/17 05:15 Est GFR (Non-Af Amer) TNP 07/11/17 05:15 BUN/Creatinine Ratio 48.0 07/11/17 05:15 Glucose 181 mg/dL (70-105) H 07/11/17 05:15 POC Glucose 193 MG/DL (70 - 105) H 07/11/17 17:14 Hemoglobin A1c % 5.0 % (4.0-6.0) 07/05/17 16:25 Whole Bld Lactic Acid 1.96 mmol/L (0.60-1.99) 07/07/17 06:15 Calcium 7.8 mg/dL (8.6-10.3) L 07/11/17 05:15 Phosphorus 2.4 mg/dL (2.5-5.0) L 07/11/17 05:15 Magnesium 1.7 mg/dL (1.9-2.7) L 07/11/17 05:15 Total Bilirubin 1.3 mg/dL (0.3-1.0) H 07/09/17 06:50 AST 42 U/L (13-39) H 07/09/17 06:50 ALT 45 U/L (7-52) 07/09/17 06:50 Alkaline Phosphatase 171 U/L (34-104) H 07/09/17 06:50 Total Protein 5.7 gm/dL (6.0-8.3) L 07/09/17 06:50 Albumin 2.0 gm/dL (3.7-5.3) L 07/09/17 06:50 Globulin 3.7 gm/dL 07/09/17 06:50 Albumin/Globulin Ratio 0.5 (1.0-1.8) L 07/09/17 06:50 Prealbumin 6 mg/dL (9-32) L 07/06/17 06:30 Triglycerides 97 mg/dL (<150) 07/06/17 06:30 Cholesterol 76 mg/dL (<200) 07/06/17 06:30 Vancomycin Trough 13.8 ug/mL (5-10) H 07/10/17 22:30 - Physical Exam Vitals and I&O: Vital Signs Temp 99.2 F 07/11/17 18:00 Pulse 78 07/11/17 18:00 Resp 34 07/11/17 18:00 BP 104/56 07/11/17 18:00 Pulse Ox 100 07/11/17 18:00 Intake & Output 07/10/17 07/11/17 07/11/17 18:59 06:59 18:59 Intake Total 3194 047 7514.3333 Output Total 310 Balance 8569 401 4429.3333 Weight (lbs) 59.506 kg 59.421 kg 59.647 kg Intake: Intake, IV Amount 300 973 318.7711 Meropenem 500 mg In 50 100 50 Sodium Chloride 0.9% 50 ml @ 50 mls/hr IV Q8H [facility] Rx#:[id number] Potassium Phosphate 40 263.3333 mmole In Sodium Chloride 0.9% 250 ml @ 42.5 mls/hr IV X1 ONE Rx#:[id number] Vancomycin HCl 0.75 gm In 250 250 250 Sodium Chloride 0.9% 250 ml @ 165 mls/hr IV Q12H [facility] Rx#:[id number] Tube Feeding 780 440 600 Other 400 200 380 Output: Urine 310 Other: # Voids 3 3 # Bowel Movements 1 2 1 Stool Characteristics Soft Soft Soft Brown Brown Liquid Brown Green Weight Source Bedscale Bedscale Bedscale Active Medications: Current Medications Acetaminophen (Tylenol 650mg/20.3ml Suspension) 650 mg GT Q6HR PRN PRN Reason: Fever > 101 Stop: 09/04/17 09:07 Last Admin: 07/11/17 15:35 Dose: 650 mg Albuterol Sulfate (Albuterol 2.5mg/3ml Neb Ud) 2.5 mg HHN Q6HRT [facility] Stop: 09/05/17 00:59 Last Admin: 07/11/17 13:34 Dose: 2.5 mg Budesonide (Pulmicort) 0.5 mg HHN BIDRT [facility] Stop: 09/08/17 18:59 Last Admin: 07/11/17 07:41 Dose: 0.5 mg [place] Oil/[place] Balsam/Trypsin (Venelex) 1 appl TP DAILY [facility] Stop: 09/05/17 08:59 Last Admin: 07/11/17 08:35 Dose: 1 appl Digoxin (Lanoxin) 0.125 mg IVP Q48HR [facility] Stop: 09/04/17 09:59 Last Admin: 07/10/17 10:25 Dose: 0.125 mg Diltiazem HCl (Cardizem) 60 mg GT Q8HR [facility] Stop: 09/04/17 12:59 Last Admin: 07/11/17 12:34 Dose: 60 mg Diltiazem HCl (Cardizem) 5 mg IVP Q6H PRN PRN Reason: HR ABOVE 120 Stop: 07/12/17 07:52 Furosemide (Lasix) 20 mg IVP Q12HR [facility] Stop: 09/04/17 20:59 Last Admin: 07/11/17 08:34 Dose: Not Given Meropenem 500 mg/ Sodium (Chloride) 50 mls @ 50 mls/hr IV Q8H [facility] Stop: 09/04/17 12:59 Last Infusion: 07/11/17 13:35 Dose: Infused Vancomycin HCl 0.75 gm/ Sodium (Chloride) 250 mls @ 165 mls/hr IV Q12H [facility] Stop: 09/07/17 10:59 Last Infusion: 07/11/17 12:35 Dose: Infused Insulin Aspart (Novolog Insulin Sliding Scale) 0 units SUBQ Q6HR [facility] PRN Reason: Protocol Stop: 09/04/17 11:59 Last Admin: 07/11/17 17:20 Dose: 2 units Lisinopril (Zestril) 10 mg GT Q12HR [facility] Stop: 09/04/17 20:59 Last Admin: 07/11/17 08:39 Dose: Not Given Metoclopramide HCl (Reglan) 10 mg GT Q8HR [facility] Stop: 09/04/17 12:59 Last Admin: 07/11/17 12:34 Dose: 10 mg Miscellaneous (Vancomycin Iv Per Pharmacy) 1 ea MC DAILY [facility] Stop: 09/05/17 08:59 Morphine Sulfate (Morphine) 2 mg IV Q6H PRN PRN Reason: pain Stop: 09/04/17 18:01 Last Admin: 07/08/17 21:23 Dose: 2 mg Mupirocin (Bactroban Oint) 1 appl NS BID [facility] Stop: 07/12/17 09:01 Last Admin: 07/11/17 17:20 Dose: 1 appl Pantoprazole Sodium (Protonix) 40 mg IVP BID [facility] Stop: 09/03/17 21:59 Last Admin: 07/11/17 17:20 Dose: 40 mg General: No acute distress Cardiovascular: Regular rate Lungs: Other (rales) Abdomen: Soft, Other (G tube/ surgical dressing), no Distended - Procedures Procedures: Procedures Procedure Code Date BYPASS STOMACH TO CUTANEOUS, OPEN APPROACH [id number] 07/05/17 EMERGENCY DEPT VISIT 51835 05/14/11 FREEING OF BOWEL ADHESION 33018 07/05/17 INTRODUCTION OF OTH THERAP SUBST INTO UP GI, PERC APPROACH [id number] 07/05/17 OTHER GROUP THERAPY 94.44 05/14/11 PLACE GASTROSTOMY TUBE 12763 07/05/17 RECREATIONAL THERAPY 93.81 05/14/11 RELEASE STOMACH, OPEN APPROACH [id number] 07/05/17 STOMACH SURGERY PROCEDURE 40466 07/05/17 Assessment/Plan - Assessment Assessment: Acute respiratory failure GI Bleed Pneumonia Left foot osteomyelitis Dysphagia 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 - Plan Plan: ICU care ID Pulmonary GI on board Frequest suctioning GT feeding IV antibiotics Wound care Follow up labs in am Plan of care discussed with nursing staff Nutritional Asmnt/Malnutr-PDOC - Dietary Evaluation Malnutrition Findings (Please click <Entered> for more info): Nutritional Asmnt/Malnutrition Start: 07/06/17 15: 40 Text: Status: Complete Freq: Document 07/06/17 15:55 HENG (Rec: 07/06/17 16:09 LCHEN [email or web address]) Nutritional Asmnt/Malnutrition Patient General Information Nutritional Screening High Risk Diagnosis osteomyelitis, PNA, Gtube infection and fustula Pertinent Medical Hx/Surgical Hx no H&P at this time Subjective Information Pt had Gtube replacement today per nurse note. TPN started this afternoon. Current Diet Order/ Nutrition Support TPN D15% AA5% Lipid 20% 200ml at 50ml/hr Pertinent Medications lasix, novolog, reglan, k phos , vancomycin Pertinent Labs 07/06 K 3.2, Cr 0.4, glucose 166 , POC 172, Ca 8.0 Nutritional Hx/Data Height 1.47 m Height (Calculated Centimeters) 147.3 Current Weight (lbs) 53.07 kg Weight (Calculated Kilograms) 53.1 Weight (Calculated Grams) 93133.3 [place] Body Weight 96 Body Mass Index (BMI) 24.4 Weight Status Approriate GI Symptoms GI Symptoms None Last BM 07/05 Difficult in: None Skin Integrity/Comment: pressure area to buttocks, right foot, decubitus to left foot, reddened to right elbow Current %PO Negligible < 25% Estimated Nutritional Goals BEE in Kcals: Using Current wt Calories/Kcals/Kg 25-30 Kcals Calculated 7207-2539 Protein: Using Current wt Protein g/k-1.2 Protein Calculated 53-63 Fluid: ml 1325-1590ml (1ml/kcal) Nutritional Problem 1. Problem Problem altered nutrition related labs Etiology electrolytes imbalanced, endocrine dysfunction Signs/Symptoms: K 3.2, Cr 0.4, glucose 166, POC 172, Ca 8.0 Intervention/Recommendation Comments 1. Continue with current TPN regimen. It provides 1252kcal, 180g CHO (2.35mg/kg/min) and 60g protein, meeting 95% of calorie needs and 100% of protein needs. 2. If tube feeding needed, RD availeble for consult. 3. Monitor nutrition support, wt, labs and skin integrity 4. F/U high risk in 2 days, 5/ 3 Expected Outcomes/Goals Expected Outcomes/Goals 1. Pt to meet at least 75% of nutritional needs via nutrition support with tolerance 2. Wt stability, skin to remain intact, labs to approach WNL.
[2017-07-12] MEDS: Albuterol Nebulizer 2.5mg/3mL HHN SCH ×4 (00:07→18:33)
[2017-07-12 04:56] LABS: % BASOPHILS 0.4 % (0.0-2.0); % EOSINOPHILS 2.8 % (0.0-5.0); % LYMPHOCYTES 14.5 % (20.0-50.0); % MONOCYTES 9.4 % (2.0-10.0); % NEUTROPHILS 72.9 % (40.0-80.0); EOSINOPHILE ABSOLUTE 0.1 Th/cmm (0.1-0.4); HEMATOCRIT 24.6 % (41.0-60); HEMOGLOBIN 8.3 gm/dL (12-16); LYMPHOCYTE ABSOLUTE 0.6 Th/cmm (1.5-3.0); MEAN CELL VOLUME 93.1 fl (81-100); MEAN CORPUSCULAR HEMOGLOBIN 31.4 pg (27.0-31.0); MEAN CORPUSCULAR HGB CONC 33.7 pg (28.0-36.0); MEAN PLATELET VOLUME 9.5 fl; MONOCYTE ABSOLUTE 0.4 Th/cmm (0.3-1.0); NEUTROPHILE ABSOLUTE 2.9 Th/cmm (1.8-8.0); PLATELET COUNT 177 Th/cmm (150-400); RED BLOOD COUNT 2.64 Mil/cmm (3.80-5.20); RED CELL DISTRIBUTION WIDTH 14.9 % (11.5-20.0)
[2017-07-12 05:09] LABS: BUN - UREA NITROGEN 24 mg/dL (7-25); CALCIUM SERUM 7.7 mg/dL (8.6-10.3); CARBON DIOXIDE 29.7 mEq/L (21.0-31.0); CHLORIDE 113 mEq/L (98-107); CREATININE - SERUM 0.5 mg/dL (0.6-1.2); GLUCOSE 161 mg/dL (70-105); MAGNESIUM 2.1 mg/dL (1.9-2.7); PHOSPHOROUS 3.5 mg/dL (2.5-5.0); POTASSIUM SERUM 3.7 mEq/L (3.5-5.1); SODIUM SERUM 147 mEq/L (136-145)
[2017-07-12] MEDS: Diltiazem 30 mg Tab GT SCH ×3 (05:16→21:05)
[2017-07-12] MEDS: Meropenem 500 MG in Sodium Chloride 0.9% 50 ML IV SCH ×3 (05:16→21:03)
[2017-07-12] MEDS: Budesonide 0.5 Mg/2 mL Ud HHN SCH ×2 (07:49→18:33)
--- NOTE | 2017-07-12 08:27 | Diagnostic Imaging Report ---
CHEST X-RAY: AP view INDICATION: Shortness of breath COMPARISON: 07/11/2017 FINDINGS: Right-sided subclavian central line is stable with curling seen along the mid clavicular region. Slight improvement in congestive changes seen. Small effusions are noted. Mild cardiomegaly is noted. Low lung volumes are noted. IMPRESSION: Slightly improving congestive changes. Small effusions are noted. Atelectasis versus infiltrate of the lung bases cannot be excluded. Stable appearance of right subclavian central catheter curled in the region of the mid clavicle. This may be at the entrance site. The significance of this finding should be correlated clinically.
[2017-07-12] MEDS: INSULIN ASPART SLIDING SCALE 100 UNITS/ML UNIT SUBQ SCH ×5 (08:45→23:52)
[2017-07-12] MEDS: Venelex 60gm Tube TP SCH (09:05)
--- NOTE | 2017-07-12 09:08 | General Progress Note ---
Subjective - Review of Systems Service Date: 07/12/17 Events since last encounter: labs ok on 2 L nasal o2, sat at 94% some tachypnea Objective - Results Result Diagrams: 07/12/17 04:30 07/12/17 04:30 Recent Labs: Laboratory Last Values WBC 4.0 Th/cmm (4.8-10.8) L 07/12/17 04:30 RBC 2.64 Mil/cmm (3.80-5.20) L 07/12/17 04:30 Hgb 8.3 gm/dL (12-16) L 07/12/17 04:30 Hct 24.6 % (41.0-60) L 07/12/17 04:30 MCV 93.1 fl (81-100) 07/12/17 04:30 MCH 31.4 pg (27.0-31.0) H 07/12/17 04:30 MCHC Differential 33.7 pg (28.0-36.0) 07/12/17 04:30 RDW 14.9 % (11.5-20.0) 07/12/17 04:30 Plt Count 177 Th/cmm (150-400) 07/12/17 04:30 MPV 9.5 fl 07/12/17 04:30 Neutrophils % 72.9 % (40.0-80.0) 07/12/17 04:30 Lymphocytes % 14.5 % (20.0-50.0) L 07/12/17 04:30 Monocytes % 9.4 % (2.0-10.0) 07/12/17 04:30 Eosinophils % 2.8 % (0.0-5.0) 07/12/17 04:30 Basophils % 0.4 % (0.0-2.0) 07/12/17 04:30 PT 10.4 SECONDS (9.5-11.5) 07/05/17 17:15 INR 1.00 (0.5-1.4) 07/05/17 17:15 PTT (Actin FS) 26.6 SECONDS (26.0-38.0) 07/05/17 17:15 Specimen Source Arterial 07/11/17 15:50 Sample Site Right Radial 07/11/17 15:50 pH 7.52 (7.35-7.45) H 07/11/17 15:50 pCO2 38.0 mmHg (35.0-45.0) 07/11/17 15:50 pO2 76.0 mmHg (80.0-100.0) L 07/11/17 15:50 HCO3 30.8 mEq/L (20.0-26.0) H 07/11/17 15:50 Base Excess 7.6 mEq/L (-3.0-3.0) H 07/11/17 15:50 O2 Saturation 96.0 % (92.0-100.0) 07/11/17 15:50 Blu Test Positive 07/11/17 15:50 Vent Rate 12 07/11/17 15:50 Inspired O2 28 07/11/17 15:50 Tidal Volume NA 07/11/17 15:50 PEEP 6 07/11/17 15:50 Pressure (ins/psv/peep) 6 07/11/17 15:50 Critical Value LZHANG 07/11/17 15:50 Sodium 147 mEq/L (136-145) H 07/12/17 04:30 Potassium 3.7 mEq/L (3.5-5.1) 07/12/17 04:30 Chloride 113 mEq/L (98-107) H 07/12/17 04:30 Carbon Dioxide 29.7 mEq/L (21.0-31.0) 07/12/17 04:30 Anion Gap 8.0 (7.0-16.0) 07/12/17 04:30 BUN 24 mg/dL (7-25) 07/12/17 04:30 Creatinine 0.5 mg/dL (0.6-1.2) L 07/12/17 04:30 Est GFR ( Amer) TNP 07/12/17 04:30 Est GFR (Non-Af Amer) TNP 07/12/17 04:30 BUN/Creatinine Ratio 48.0 07/12/17 04:30 Glucose 161 mg/dL (70-105) H 07/12/17 04:30 POC Glucose 193 MG/DL (70 - 105) H 07/11/17 17:14 Hemoglobin A1c % 5.0 % (4.0-6.0) 07/05/17 16:25 Whole Bld Lactic Acid 1.96 mmol/L (0.60-1.99) 07/07/17 06:15 Calcium 7.7 mg/dL (8.6-10.3) L 07/12/17 04:30 Phosphorus 3.5 mg/dL (2.5-5.0) 07/12/17 04:30 Magnesium 2.1 mg/dL (1.9-2.7) 07/12/17 04:30 Total Bilirubin 1.3 mg/dL (0.3-1.0) H 07/09/17 06:50 AST 42 U/L (13-39) H 07/09/17 06:50 ALT 45 U/L (7-52) 07/09/17 06:50 Alkaline Phosphatase 171 U/L (34-104) H 07/09/17 06:50 Total Protein 5.7 gm/dL (6.0-8.3) L 07/09/17 06:50 Albumin 2.0 gm/dL (3.7-5.3) L 07/09/17 06:50 Globulin 3.7 gm/dL 07/09/17 06:50 Albumin/Globulin Ratio 0.5 (1.0-1.8) L 07/09/17 06:50 Prealbumin 6 mg/dL (9-32) L 07/06/17 06:30 Triglycerides 97 mg/dL (<150) 07/06/17 06:30 Cholesterol 76 mg/dL (<200) 07/06/17 06:30 Vancomycin Trough 13.8 ug/mL (5-10) H 07/10/17 22:30 - Physical Exam Vitals and I&O: Vital Signs Temp 98 F 07/12/17 04:00 Pulse 89 07/12/17 09:05 Resp 28 07/12/17 07:49 BP 93/57 07/12/17 09:05 Pulse Ox 95 07/12/17 07:49 Intake & Output 07/11/17 07/12/17 07/12/17 18:59 06:59 18:59 Intake Total 1593.3333 650 Output Total 310 450 Balance 1283.3333 200 Weight (lbs) 59.647 kg 60.101 kg Intake: Intake, IV Amount 613.3333 50 Meropenem 500 mg In 50 50 Sodium Chloride 0.9% 50 ml @ 50 mls/hr IV Q8H [facility] Rx#:[id number] Potassium Phosphate 40 263.3333 mmole In Sodium Chloride 0.9% 250 ml @ 42.5 mls/hr IV X1 ONE Rx#:[id number] Vancomycin HCl 0.75 gm In 250 Sodium Chloride 0.9% 250 ml @ 165 mls/hr IV Q12H [facility] Rx#:[id number] Tube Feeding 600 600 Other 380 Output: Urine 310 450 Other: # Bowel Movements 1 2 Stool Characteristics Soft Soft Liquid Brown Brown Green Weight Source Bedscale Bedscale Active Medications: Current Medications Acetaminophen (Tylenol 650mg/20.3ml Suspension) 650 mg GT Q6HR PRN PRN Reason: Fever > 101 Stop: 09/04/17 09:07 Last Admin: 07/11/17 15:35 Dose: 650 mg Albuterol Sulfate (Albuterol 2.5mg/3ml Neb Ud) 2.5 mg HHN Q6HRT [facility] Stop: 09/05/17 00:59 Last Admin: 07/12/17 07:48 Dose: 2.5 mg Budesonide (Pulmicort) 0.5 mg HHN BIDRT [facility] Stop: 09/08/17 18:59 Last Admin: 07/12/17 07:49 Dose: 0.5 mg [place] Oil/[place] Balsam/Trypsin (Venelex) 1 appl TP DAILY [facility] Stop: 09/05/17 08:59 Last Admin: 07/12/17 09:05 Dose: 1 appl Digoxin (Lanoxin) 0.125 mg IVP Q48HR [facility] Stop: 09/04/17 09:59 Last Admin: 07/10/17 10:25 Dose: 0.125 mg Diltiazem HCl (Cardizem) 60 mg GT Q8HR [facility] Stop: 09/04/17 12:59 Last Admin: 07/12/17 05:16 Dose: 60 mg Furosemide (Lasix) 20 mg IVP Q12HR [facility] Stop: 09/04/17 20:59 Last Admin: 07/12/17 08:44 Dose: 20 mg Meropenem 500 mg/ Sodium (Chloride) 50 mls @ 50 mls/hr IV Q8H [facility] Stop: 09/04/17 12:59 Last Admin: 07/12/17 05:16 Dose: 50 mls/hr Vancomycin HCl 0.75 gm/ Sodium (Chloride) 250 mls @ 165 mls/hr IV Q12H [facility] Stop: 09/07/17 10:59 Last Admin: 07/11/17 23:56 Dose: 165 mls/hr Insulin Aspart (Novolog Insulin Sliding Scale) 0 units SUBQ Q6HR [facility] PRN Reason: Protocol Stop: 09/04/17 11:59 Last Admin: 07/12/17 08:45 Dose: 2 units Lisinopril (Zestril) 10 mg GT Q12HR [facility] Stop: 09/04/17 20:59 Last Admin: 07/12/17 09:05 Dose: Not Given Metoclopramide HCl (Reglan) 10 mg GT Q8HR [facility] Stop: 09/04/17 12:59 Last Admin: 07/12/17 05:16 Dose: 10 mg Miscellaneous (Vancomycin Iv Per Pharmacy) 1 ea MC DAILY [facility] Stop: 09/05/17 08:59 Morphine Sulfate (Morphine) 2 mg IV Q6H PRN PRN Reason: pain Stop: 09/04/17 18:01 Last Admin: 07/08/17 21:23 Dose: 2 mg Pantoprazole Sodium (Protonix) 40 mg IVP BID [facility] Stop: 09/03/17 21:59 Last Admin: 07/12/17 08:43 Dose: 40 mg General: No acute distress Cardiovascular: Regular rate Lungs: Other (rales) Abdomen: Soft, Other (G tube/ surgical dressing), no Distended - Procedures Procedures: Procedures Procedure Code Date BYPASS STOMACH TO CUTANEOUS, OPEN APPROACH [id number] 07/05/17 EMERGENCY DEPT VISIT 39091 05/14/11 FREEING OF BOWEL ADHESION 37325 07/05/17 INTRODUCTION OF OTH THERAP SUBST INTO UP GI, PERC APPROACH [id number] 07/05/17 OTHER GROUP THERAPY 94.44 05/14/[address] PLACE GASTROSTOMY TUBE 57017 07/05/17 RECREATIONAL THERAPY 93.81 05/14/11 RELEASE STOMACH, OPEN APPROACH [id number] 07/05/17 STOMACH SURGERY PROCEDURE 32918 07/05/17 Nutritional Asmnt/Malnutr-PDOC - Dietary Evaluation Malnutrition Findings (Please click <Entered> for more info): Nutritional Asmnt/Malnutrition Start: 07/06/17 15: 40 Text: Status: Complete Freq: Document 07/06/17 15:55 LCHENG (Rec: 07/06/17 16:09 LCHENG [email or web address]) Nutritional Asmnt/Malnutrition Patient General Information Nutritional Screening High Risk Diagnosis osteomyelitis, PNA, Gtube infection and fustula Pertinent Medical Hx/Surgical Hx no H&P at this time Subjective Information Pt had Gtube replacement today per nurse note. TPN started this afternoon. Current Diet Order/ Nutrition Support TPN D15% AA5% Lipid 20% 200ml at 50ml/hr Pertinent Medications lasix, novolog, reglan, k phos , vancomycin Pertinent Labs 07/06 K 3.2, Cr 0.4, glucose 166 , POC 172, Ca 8.0 Nutritional Hx/Data Height 1.47 m Height (Calculated Centimeters) 147.3 Current Weight (lbs) 53.07 kg Weight (Calculated Kilograms) 53.1 Weight (Calculated Grams) 54842.3 [place] Body Weight 96 Body Mass Index (BMI) 24.4 Weight Status Approriate GI Symptoms GI Symptoms None Last BM 07/05 Difficult in: None Skin Integrity/Comment: pressure area to buttocks, right foot, decubitus to left foot, reddened to right elbow Current %PO Negligible < 25% Estimated Nutritional Goals BEE in Kcals: Using Current wt Calories/Kcals/Kg 25-30 Kcals Calculated 4428-9983 Protein: Using Current wt Protein g/k-1.2 Protein Calculated 53-63 Fluid: ml 1325-1590ml (1ml/kcal) Nutritional Problem 1. Problem Problem altered nutrition related labs Etiology electrolytes imbalanced, endocrine dysfunction Signs/Symptoms: K 3.2, Cr 0.4, glucose 166, POC 172, Ca 8.0 Intervention/Recommendation Comments 1. Continue with current TPN regimen. It provides 1252kcal, 180g CHO (2.35mg/kg/min) and 60g protein, meeting 95% of calorie needs and 100% of protein needs. 2. If tube feeding needed, RD availeble for consult. 3. Monitor nutrition support, wt, labs and skin integrity 4. F/U high risk in 2 days, 5/ 3 Expected Outcomes/Goals Expected Outcomes/Goals 1. Pt to meet at least 75% of nutritional needs via nutrition support with tolerance 2. Wt stability, skin to remain intact, labs to approach WNL.
--- NOTE | 2017-07-12 13:02 | GI Progress Note ---
Subjective - Review of Systems Subjective: NO ACTIVE BLEEDING Objective - Results Result Diagrams: 07/12/17 04:30 07/12/17 04:30 Recent Labs: Laboratory Last Values WBC 4.0 Th/cmm (4.8-10.8) L 07/12/17 04:30 RBC 2.64 Mil/cmm (3.80-5.20) L 07/12/17 04:30 Hgb 8.3 gm/dL (12-16) L 07/12/17 04:30 Hct 24.6 % (41.0-60) L 07/12/17 04:30 MCV 93.1 fl (81-100) 07/12/17 04:30 MCH 31.4 pg (27.0-31.0) H 07/12/17 04:30 MCHC Differential 33.7 pg (28.0-36.0) 07/12/17 04:30 RDW 14.9 % (11.5-20.0) 07/12/17 04:30 Plt Count 177 Th/cmm (150-400) 07/12/17 04:30 MPV 9.5 fl 07/12/17 04:30 Neutrophils % 72.9 % (40.0-80.0) 07/12/17 04:30 Lymphocytes % 14.5 % (20.0-50.0) L 07/12/17 04:30 Monocytes % 9.4 % (2.0-10.0) 07/12/17 04:30 Eosinophils % 2.8 % (0.0-5.0) 07/12/17 04:30 Basophils % 0.4 % (0.0-2.0) 07/12/17 04:30 PT 10.4 SECONDS (9.5-11.5) 07/05/17 17:15 INR 1.00 (0.5-1.4) 07/05/17 17:15 PTT (Actin FS) 26.6 SECONDS (26.0-38.0) 07/05/17 17:15 Specimen Source Arterial 07/11/17 15:50 Sample Site Right Radial 07/11/17 15:50 pH 7.52 (7.35-7.45) H 07/11/17 15:50 pCO2 38.0 mmHg (35.0-45.0) 07/11/17 15:50 pO2 76.0 mmHg (80.0-100.0) L 07/11/17 15:50 HCO3 30.8 mEq/L (20.0-26.0) H 07/11/17 15:50 Base Excess 7.6 mEq/L (-3.0-3.0) H 07/11/17 15:50 O2 Saturation 96.0 % (92.0-100.0) 07/11/17 15:50 Blu Test Positive 07/11/17 15:50 Vent Rate 12 07/11/17 15:50 Inspired O2 28 07/11/17 15:50 Tidal Volume NA 07/11/17 15:50 PEEP 6 07/11/17 15:50 Pressure (ins/psv/peep) 6 07/11/17 15:50 Critical Value LZHANG 07/11/17 15:50 Sodium 147 mEq/L (136-145) H 07/12/17 04:30 Potassium 3.7 mEq/L (3.5-5.1) 07/12/17 04:30 Chloride 113 mEq/L (98-107) H 07/12/17 04:30 Carbon Dioxide 29.7 mEq/L (21.0-31.0) 07/12/17 04:30 Anion Gap 8.0 (7.0-16.0) 07/12/17 04:30 BUN 24 mg/dL (7-25) 07/12/17 04:30 Creatinine 0.5 mg/dL (0.6-1.2) L 07/12/17 04:30 Est GFR ( Amer) TNP 07/12/17 04:30 Est GFR (Non-Af Amer) TNP 07/12/17 04:30 BUN/Creatinine Ratio 48.0 07/12/17 04:30 Glucose 161 mg/dL (70-105) H 07/12/17 04:30 POC Glucose 198 MG/DL (70 - 105) H 07/12/17 12:11 Hemoglobin A1c % 5.0 % (4.0-6.0) 07/05/17 16:25 Whole Bld Lactic Acid 1.96 mmol/L (0.60-1.99) 07/07/17 06:15 Calcium 7.7 mg/dL (8.6-10.3) L 07/12/17 04:30 Phosphorus 3.5 mg/dL (2.5-5.0) 07/12/17 04:30 Magnesium 2.1 mg/dL (1.9-2.7) 07/12/17 04:30 Total Bilirubin 1.3 mg/dL (0.3-1.0) H 07/09/17 06:50 AST 42 U/L (13-39) H 07/09/17 06:50 ALT 45 U/L (7-52) 07/09/17 06:50 Alkaline Phosphatase 171 U/L (34-104) H 07/09/17 06:50 Total Protein 5.7 gm/dL (6.0-8.3) L 07/09/17 06:50 Albumin 2.0 gm/dL (3.7-5.3) L 07/09/17 06:50 Globulin 3.7 gm/dL 07/09/17 06:50 Albumin/Globulin Ratio 0.5 (1.0-1.8) L 07/09/17 06:50 Prealbumin 6 mg/dL (9-32) L 07/06/17 06:30 Triglycerides 97 mg/dL (<150) 07/06/17 06:30 Cholesterol 76 mg/dL (<200) 07/06/17 06:30 Vancomycin Trough 13.8 ug/mL (5-10) H 07/10/17 22:30 - Physical Exam Vitals and I&O: Vital Signs Temp 98 F 07/12/17 04:00 Pulse 90 07/12/17 10:22 Resp 37 07/12/17 11:57 BP 93/57 07/12/17 09:05 Pulse Ox 96 07/12/17 11:57 Intake & Output 07/11/17 07/12/17 07/12/17 18:59 06:59 18:59 Intake Total 1593.3333 950 Output Total 310 450 Balance 1283.3333 500 Weight (lbs) 59.647 kg 60.101 kg Intake: Intake, IV Amount 613.3333 350 Meropenem 500 mg In 50 100 Sodium Chloride 0.9% 50 ml @ 50 mls/hr IV Q8H [facility] Rx#:[id number] Potassium Phosphate 40 263.3333 mmole In Sodium Chloride 0.9% 250 ml @ 42.5 mls/hr IV X1 ONE Rx#:[id number] Vancomycin HCl 0.75 gm In 250 250 Sodium Chloride 0.9% 250 ml @ 165 mls/hr IV Q12H [facility] Rx#:[id number] Tube Feeding 600 600 Other 380 Output: Urine 310 450 Other: # Bowel Movements 1 2 Stool Characteristics Soft Soft Soft Liquid Brown Formed Brown Brown Green Green Weight Source Bedscale Bedscale Active Medications: Current Medications Acetaminophen (Tylenol 650mg/20.3ml Suspension) 650 mg GT Q6HR PRN PRN Reason: Fever > 101 Stop: 09/04/17 09:07 Last Admin: 07/11/17 15:35 Dose: 650 mg Albuterol Sulfate (Albuterol 2.5mg/3ml Neb Ud) 2.5 mg HHN Q6HRT [facility] Stop: 09/05/17 00:59 Last Admin: 07/12/17 07:48 Dose: 2.5 mg Budesonide (Pulmicort) 0.5 mg HHN BIDRT [facility] Stop: 09/08/17 18:59 Last Admin: 07/12/17 07:49 Dose: 0.5 mg [place] Oil/[place] Balsam/Trypsin (Venelex) 1 appl TP DAILY [facility] Stop: 09/05/17 08:59 Last Admin: 07/12/17 09:05 Dose: 1 appl Digoxin (Lanoxin) 0.125 mg IVP Q48HR [facility] Stop: 09/04/17 09:59 Last Admin: 07/12/17 10:22 Dose: 0.125 mg Diltiazem HCl (Cardizem) 60 mg GT Q8HR [facility] Stop: 09/04/17 12:59 Last Admin: 07/12/17 05:16 Dose: 60 mg Furosemide (Lasix) 20 mg IVP Q12HR [facility] Stop: 09/04/17 20:59 Last Admin: 07/12/17 08:44 Dose: 20 mg Meropenem 500 mg/ Sodium (Chloride) 50 mls @ 50 mls/hr IV Q8H [facility] Stop: 09/04/17 12:59 Last Admin: 07/12/17 12:17 Dose: 50 mls/hr Vancomycin HCl 0.75 gm/ Sodium (Chloride) 250 mls @ 165 mls/hr IV Q12H [facility] Stop: 09/07/17 10:59 Last Admin: 07/12/17 10:24 Dose: 165 mls/hr Insulin Aspart (Novolog Insulin Sliding Scale) 0 units SUBQ Q6HR [facility] PRN Reason: Protocol Stop: 09/04/17 11:59 Last Admin: 07/12/17 12:17 Dose: 2 units Lisinopril (Zestril) 10 mg GT Q12HR [facility] Stop: 09/04/17 20:59 Last Admin: 07/12/17 09:05 Dose: Not Given Metoclopramide HCl (Reglan) 10 mg GT Q8HR [facility] Stop: 09/04/17 12:59 Last Admin: 07/12/17 05:16 Dose: 10 mg Miscellaneous (Vancomycin Iv Per Pharmacy) 1 ea MC DAILY [facility] Stop: 09/05/17 08:59 Morphine Sulfate (Morphine) 2 mg IV Q6H PRN PRN Reason: pain Stop: 09/04/17 18:01 Last Admin: 07/08/17 21:23 Dose: 2 mg Pantoprazole Sodium (Protonix) 40 mg IVP BID [facility] Stop: 09/03/17 21:59 Last Admin: 07/12/17 08:43 Dose: 40 mg General: No acute distress Cardiovascular: Regular rate Lungs: Other (rales) Abdomen: Soft, Other (G tube/ surgical dressing), no Distended - Procedures Procedures: Procedures Procedure Code Date BYPASS STOMACH TO CUTANEOUS, OPEN APPROACH [id number] 07/05/17 EMERGENCY DEPT VISIT 16744 05/14/11 FREEING OF BOWEL ADHESION 01951 07/05/17 INTRODUCTION OF OTH THERAP SUBST INTO UP GI, PERC APPROACH [id number] 07/05/17 OTHER GROUP THERAPY 94.44 05/14/[address] PLACE GASTROSTOMY TUBE 82276 07/05/17 RECREATIONAL THERAPY 93.81 05/14/11 RELEASE STOMACH, OPEN APPROACH [id number] 07/05/17 STOMACH SURGERY PROCEDURE 25090 07/05/17 Assessment/Plan - Assessment Assessment: 87 YO FEMALE WITH DYPHAGIA AND GT S/P SURGERY FOR GT SITE BLEEDING NO FURTHER BLEEDING CHRISTY TUBE FEEDS 1.FOLLOW H/H 2.CONT POST OP CARE 3.CONT TUBE FEEDS CHRISTY 4.WILL SEE NEEDED; CALL IF QUESTIONS
--- NOTE | 2017-07-12 13:42 | Infectious Disease Prog Note ---
Infectious Disease Subjective - Review of Systems Service Date: 07/12/17 Subjective: patient remained in the ICU, No fever. on Bipap. Infectious Disease Objective - Results Result Diagrams: 07/12/17 04:30 07/12/17 04:30 Recent Labs: Laboratory Last Values WBC 4.0 Th/cmm (4.8-10.8) L 07/12/17 04:30 RBC 2.64 Mil/cmm (3.80-5.20) L 07/12/17 04:30 Hgb 8.3 gm/dL (12-16) L 07/12/17 04:30 Hct 24.6 % (41.0-60) L 07/12/17 04:30 MCV 93.1 fl (81-100) 07/12/17 04:30 MCH 31.4 pg (27.0-31.0) H 07/12/17 04:30 MCHC Differential 33.7 pg (28.0-36.0) 07/12/17 04:30 RDW 14.9 % (11.5-20.0) 07/12/17 04:30 Plt Count 177 Th/cmm (150-400) 07/12/17 04:30 MPV 9.5 fl 07/12/17 04:30 Neutrophils % 72.9 % (40.0-80.0) 07/12/17 04:30 Lymphocytes % 14.5 % (20.0-50.0) L 07/12/17 04:30 Monocytes % 9.4 % (2.0-10.0) 07/12/17 04:30 Eosinophils % 2.8 % (0.0-5.0) 07/12/17 04:30 Basophils % 0.4 % (0.0-2.0) 07/12/17 04:30 PT 10.4 SECONDS (9.5-11.5) 07/05/17 17:15 INR 1.00 (0.5-1.4) 07/05/17 17:15 PTT (Actin FS) 26.6 SECONDS (26.0-38.0) 07/05/17 17:15 Specimen Source Arterial 07/11/17 15:50 Sample Site Right Radial 07/11/17 15:50 pH 7.52 (7.35-7.45) H 07/11/17 15:50 pCO2 38.0 mmHg (35.0-45.0) 07/11/17 15:50 pO2 76.0 mmHg (80.0-100.0) L 07/11/17 15:50 HCO3 30.8 mEq/L (20.0-26.0) H 07/11/17 15:50 Base Excess 7.6 mEq/L (-3.0-3.0) H 07/11/17 15:50 O2 Saturation 96.0 % (92.0-100.0) 07/11/17 15:50 Blu Test Positive 07/11/17 15:50 Vent Rate 12 07/11/17 15:50 Inspired O2 28 07/11/17 15:50 Tidal Volume NA 07/11/17 15:50 PEEP 6 07/11/17 15:50 Pressure (ins/psv/peep) 6 07/11/17 15:50 Critical Value LZHANG 07/11/17 15:50 Sodium 147 mEq/L (136-145) H 07/12/17 04:30 Potassium 3.7 mEq/L (3.5-5.1) 07/12/17 04:30 Chloride 113 mEq/L (98-107) H 07/12/17 04:30 Carbon Dioxide 29.7 mEq/L (21.0-31.0) 07/12/17 04:30 Anion Gap 8.0 (7.0-16.0) 07/12/17 04:30 BUN 24 mg/dL (7-25) 07/12/17 04:30 Creatinine 0.5 mg/dL (0.6-1.2) L 07/12/17 04:30 Est GFR ( Amer) TNP 07/12/17 04:30 Est GFR (Non-Af Amer) TNP 07/12/17 04:30 BUN/Creatinine Ratio 48.0 07/12/17 04:30 Glucose 161 mg/dL (70-105) H 07/12/17 04:30 POC Glucose 198 MG/DL (70 - 105) H 07/12/17 12:11 Hemoglobin A1c % 5.0 % (4.0-6.0) 07/05/17 16:25 Whole Bld Lactic Acid 1.96 mmol/L (0.60-1.99) 07/07/17 06:15 Calcium 7.7 mg/dL (8.6-10.3) L 07/12/17 04:30 Phosphorus 3.5 mg/dL (2.5-5.0) 07/12/17 04:30 Magnesium 2.1 mg/dL (1.9-2.7) 07/12/17 04:30 Total Bilirubin 1.3 mg/dL (0.3-1.0) H 07/09/17 06:50 AST 42 U/L (13-39) H 07/09/17 06:50 ALT 45 U/L (7-52) 07/09/17 06:50 Alkaline Phosphatase 171 U/L (34-104) H 07/09/17 06:50 Total Protein 5.7 gm/dL (6.0-8.3) L 07/09/17 06:50 Albumin 2.0 gm/dL (3.7-5.3) L 07/09/17 06:50 Globulin 3.7 gm/dL 07/09/17 06:50 Albumin/Globulin Ratio 0.5 (1.0-1.8) L 07/09/17 06:50 Prealbumin 6 mg/dL (9-32) L 07/06/17 06:30 Triglycerides 97 mg/dL (<150) 07/06/17 06:30 Cholesterol 76 mg/dL (<200) 07/06/17 06:30 Vancomycin Trough 13.8 ug/mL (5-10) H 07/10/17 22:30 - Physical Exam Vitals and I&O: Vital Signs Temp 98.1 F 07/12/17 12:00 Pulse 90 07/12/17 13:00 Resp 40 07/12/17 13:00 BP 129/51 07/12/17 13:00 Pulse Ox 97 07/12/17 13:00 Intake & Output 07/11/17 07/12/17 07/12/17 18:59 06:59 18:59 Intake Total 1593.3333 950 Output Total 310 450 Balance 1283.3333 500 Weight (lbs) 59.647 kg 60.101 kg Intake: Intake, IV Amount 613.3333 350 Meropenem 500 mg In 50 100 Sodium Chloride 0.9% 50 ml @ 50 mls/hr IV Q8H [facility] Rx#:[id number] Potassium Phosphate 40 263.3333 mmole In Sodium Chloride 0.9% 250 ml @ 42.5 mls/hr IV X1 ONE Rx#:[id number] Vancomycin HCl 0.75 gm In 250 250 Sodium Chloride 0.9% 250 ml @ 165 mls/hr IV Q12H [facility] Rx#:[id number] Tube Feeding 600 600 Other 380 Output: Urine 310 450 Other: # Bowel Movements 1 2 Stool Characteristics Soft Soft Soft Liquid Brown Formed Brown Brown Green Green Weight Source Bedscale Bedscale Active Medications: Current Medications Acetaminophen (Tylenol 650mg/20.3ml Suspension) 650 mg GT Q6HR PRN PRN Reason: Fever > 101 Stop: 09/04/17 09:07 Last Admin: 07/11/17 15:35 Dose: 650 mg Albuterol Sulfate (Albuterol 2.5mg/3ml Neb Ud) 2.5 mg HHN Q6HRT [facility] Stop: 09/05/17 00:59 Last Admin: 07/12/17 07:48 Dose: 2.5 mg Budesonide (Pulmicort) 0.5 mg HHN BIDRT [facility] Stop: 09/08/17 18:59 Last Admin: 07/12/17 07:49 Dose: 0.5 mg [place] Oil/[place] Balsam/Trypsin (Venelex) 1 appl TP DAILY [facility] Stop: 09/05/17 08:59 Last Admin: 07/12/17 09:05 Dose: 1 appl Digoxin (Lanoxin) 0.125 mg IVP Q48HR [facility] Stop: 09/04/17 09:59 Last Admin: 07/12/17 10:22 Dose: 0.125 mg Diltiazem HCl (Cardizem) 60 mg GT Q8HR [facility] Stop: 09/04/17 12:59 Last Admin: 07/12/17 05:16 Dose: 60 mg Furosemide (Lasix) 20 mg IVP Q12HR [facility] Stop: 09/04/17 20:59 Last Admin: 07/12/17 08:44 Dose: 20 mg Meropenem 500 mg/ Sodium (Chloride) 50 mls @ 50 mls/hr IV Q8H [facility] Stop: 09/04/17 12:59 Last Admin: 07/12/17 12:17 Dose: 50 mls/hr Vancomycin HCl 0.75 gm/ Sodium (Chloride) 250 mls @ 165 mls/hr IV Q12H [facility] Stop: 09/07/17 10:59 Last Admin: 07/12/17 10:24 Dose: 165 mls/hr Insulin Aspart (Novolog Insulin Sliding Scale) 0 units SUBQ Q6HR [facility] PRN Reason: Protocol Stop: 09/04/17 11:59 Last Admin: 07/12/17 12:17 Dose: 2 units Lisinopril (Zestril) 10 mg GT Q12HR [facility] Stop: 09/04/17 20:59 Last Admin: 07/12/17 09:05 Dose: Not Given Metoclopramide HCl (Reglan) 10 mg GT Q8HR [facility] Stop: 09/04/17 12:59 Last Admin: 07/12/17 05:16 Dose: 10 mg Miscellaneous (Vancomycin Iv Per Pharmacy) 1 ea MC DAILY [facility] Stop: 09/05/17 08:59 Morphine Sulfate (Morphine) 2 mg IV Q6H PRN PRN Reason: pain Stop: 09/04/17 18:01 Last Admin: 07/08/17 21:23 Dose: 2 mg Pantoprazole Sodium (Protonix) 40 mg IVP BID [facility] Stop: 09/03/17 21:59 Last Admin: 07/12/17 08:43 Dose: 40 mg - Procedures Procedures: Procedures Procedure Code Date BYPASS STOMACH TO CUTANEOUS, OPEN APPROACH [id number] 07/05/17 EMERGENCY DEPT VISIT 07177 05/14/11 FREEING OF BOWEL ADHESION 49259 07/05/17 INTRODUCTION OF OTH THERAP SUBST INTO UP GI, PERC APPROACH [id number] 07/05/17 OTHER GROUP THERAPY 94.44 05/14/[address] PLACE GASTROSTOMY TUBE 72763 07/05/17 RECREATIONAL THERAPY 93.81 05/14/11 RELEASE STOMACH, OPEN APPROACH [id number] 07/05/17 STOMACH SURGERY PROCEDURE 51724 07/05/17 Infectious Disease Assmt/Plan - Assessment Assessment: 1. 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 New G-tube was placed in. 2. Osteomyelitis, complicated wound of the left foot. 3. Bilateral foot ulcers. 4. UTI. 5. Up the wall cellulitis. 6. Hypertension. 7. Diabetes mellitus type 2. 8. Severe dementia. 9. COPD. 10. CHF, cardiomyopathy, atrial fibrillation. 11. Depression. 12. Schizoaffective disorder. 13. Gastroesophageal reflux disease. 14. Seizure disorder. 15. History of cataract. - Plan Plan: Continue vancomycin and meropenem. Wound care. G tube feeding as tolerated. Pulmonary consult Dr Leiva was appreciated. Nutritional Asmnt/Malnutr-PDOC - Dietary Evaluation Malnutrition Findings (Please click <Entered> for more info): Nutritional Asmnt/Malnutrition Start: 07/06/17 15: 40 Text: Status: Complete Freq: Document 07/06/17 15:55 LCHENG (Rec: 07/06/17 16:09 [email or web address] [email or web address]) Nutritional Asmnt/Malnutrition Patient General Information Nutritional Screening High Risk Diagnosis osteomyelitis, PNA, Gtube infection and fustula Pertinent Medical Hx/Surgical Hx no H&P at this time Subjective Information Pt had Gtube replacement today per nurse note. TPN started this afternoon. Current Diet Order/ Nutrition Support TPN D15% AA5% Lipid 20% 200ml at 50ml/hr Pertinent Medications lasix, novolog, reglan, k phos , vancomycin Pertinent Labs 07/06 K 3.2, Cr 0.4, glucose 166 , POC 172, Ca 8.0 Nutritional Hx/Data Height 1.47 m Height (Calculated Centimeters) 147.3 Current Weight (lbs) 53.07 kg Weight (Calculated Kilograms) 53.1 Weight (Calculated Grams) 38393.3 [place] Body Weight 96 Body Mass Index (BMI) 24.4 Weight Status Approriate GI Symptoms GI Symptoms None Last BM 07/05 Difficult in: None Skin Integrity/Comment: pressure area to buttocks, right foot, decubitus to left foot, reddened to right elbow Current %PO Negligible < 25% Estimated Nutritional Goals BEE in Kcals: Using Current wt Calories/Kcals/Kg 25-30 Kcals Calculated 2553-8430 Protein: Using Current wt Protein g/k-1.2 Protein Calculated 53-63 Fluid: ml 1325-1590ml (1ml/kcal) Nutritional Problem 1. Problem Problem altered nutrition related labs Etiology electrolytes imbalanced, endocrine dysfunction Signs/Symptoms: K 3.2, Cr 0.4, glucose 166, POC 172, Ca 8.0 Intervention/Recommendation Comments 1. Continue with current TPN regimen. It provides 1252kcal, 180g CHO (2.35mg/kg/min) and 60g protein, meeting 95% of calorie needs and 100% of protein needs. 2. If tube feeding needed, RD availeble for consult. 3. Monitor nutrition support, wt, labs and skin integrity 4. F/U high risk in 2 days, 5/ 3 Expected Outcomes/Goals Expected Outcomes/Goals 1. Pt to meet at least 75% of nutritional needs via nutrition support with tolerance 2. Wt stability, skin to remain intact, labs to approach WNL.
[2017-07-12] MEDS: Morphine Sulfate 4 mg/mL 1mL Syr IV PRN ×2 (14:42→22:47)
--- NOTE | 2017-07-12 20:46 | General Progress Note ---
Subjective - Review of Systems Service Date: 07/12/17 Subjective: Patient seen and examined in ICU breathing seems ok still copious throat secretions requiring frequent suctioning afebrile Objective - Results Result Diagrams: 07/12/17 04:30 07/12/17 04:30 Recent Labs: Laboratory Last Values WBC 4.0 Th/cmm (4.8-10.8) L 07/12/17 04:30 RBC 2.64 Mil/cmm (3.80-5.20) L 07/12/17 04:30 Hgb 8.3 gm/dL (12-16) L 07/12/17 04:30 Hct 24.6 % (41.0-60) L 07/12/17 04:30 MCV 93.1 fl (81-100) 07/12/17 04:30 MCH 31.4 pg (27.0-31.0) H 07/12/17 04:30 MCHC Differential 33.7 pg (28.0-36.0) 07/12/17 04:30 RDW 14.9 % (11.5-20.0) 07/12/17 04:30 Plt Count 177 Th/cmm (150-400) 07/12/17 04:30 MPV 9.5 fl 07/12/17 04:30 Neutrophils % 72.9 % (40.0-80.0) 07/12/17 04:30 Lymphocytes % 14.5 % (20.0-50.0) L 07/12/17 04:30 Monocytes % 9.4 % (2.0-10.0) 07/12/17 04:30 Eosinophils % 2.8 % (0.0-5.0) 07/12/17 04:30 Basophils % 0.4 % (0.0-2.0) 07/12/17 04:30 PT 10.4 SECONDS (9.5-11.5) 07/05/17 17:15 INR 1.00 (0.5-1.4) 07/05/17 17:15 PTT (Actin FS) 26.6 SECONDS (26.0-38.0) 07/05/17 17:15 Specimen Source Arterial 07/11/17 15:50 Sample Site Right Radial 07/11/17 15:50 pH 7.52 (7.35-7.45) H 07/11/17 15:50 pCO2 38.0 mmHg (35.0-45.0) 07/11/17 15:50 pO2 76.0 mmHg (80.0-100.0) L 07/11/17 15:50 HCO3 30.8 mEq/L (20.0-26.0) H 07/11/17 15:50 Base Excess 7.6 mEq/L (-3.0-3.0) H 07/11/17 15:50 O2 Saturation 96.0 % (92.0-100.0) 07/11/17 15:50 Blu Test Positive 07/11/17 15:50 Vent Rate 12 07/11/17 15:50 Inspired O2 28 07/11/17 15:50 Tidal Volume NA 07/11/17 15:50 PEEP 6 07/11/17 15:50 Pressure (ins/psv/peep) 6 07/11/17 15:50 Critical Value LZHANG 07/11/17 15:50 Sodium 147 mEq/L (136-145) H 07/12/17 04:30 Potassium 3.7 mEq/L (3.5-5.1) 07/12/17 04:30 Chloride 113 mEq/L (98-107) H 07/12/17 04:30 Carbon Dioxide 29.7 mEq/L (21.0-31.0) 07/12/17 04:30 Anion Gap 8.0 (7.0-16.0) 07/12/17 04:30 BUN 24 mg/dL (7-25) 07/12/17 04:30 Creatinine 0.5 mg/dL (0.6-1.2) L 07/12/17 04:30 Est GFR ( Amer) TNP 07/12/17 04:30 Est GFR (Non-Af Amer) TNP 07/12/17 04:30 BUN/Creatinine Ratio 48.0 07/12/17 04:30 Glucose 161 mg/dL (70-105) H 07/12/17 04:30 POC Glucose 160 MG/DL (70 - 105) H 07/12/17 17:25 Hemoglobin A1c % 5.0 % (4.0-6.0) 07/05/17 16:25 Whole Bld Lactic Acid 1.96 mmol/L (0.60-1.99) 07/07/17 06:15 Calcium 7.7 mg/dL (8.6-10.3) L 07/12/17 04:30 Phosphorus 3.5 mg/dL (2.5-5.0) 07/12/17 04:30 Magnesium 2.1 mg/dL (1.9-2.7) 07/12/17 04:30 Total Bilirubin 1.3 mg/dL (0.3-1.0) H 07/09/17 06:50 AST 42 U/L (13-39) H 07/09/17 06:50 ALT 45 U/L (7-52) 07/09/17 06:50 Alkaline Phosphatase 171 U/L (34-104) H 07/09/17 06:50 Total Protein 5.7 gm/dL (6.0-8.3) L 07/09/17 06:50 Albumin 2.0 gm/dL (3.7-5.3) L 07/09/17 06:50 Globulin 3.7 gm/dL 07/09/17 06:50 Albumin/Globulin Ratio 0.5 (1.0-1.8) L 07/09/17 06:50 Prealbumin 6 mg/dL (9-32) L 07/06/17 06:30 Triglycerides 97 mg/dL (<150) 07/06/17 06:30 Cholesterol 76 mg/dL (<200) 07/06/17 06:30 Vancomycin Trough 13.8 ug/mL (5-10) H 07/10/17 22:30 - Physical Exam Vitals and I&O: Vital Signs Temp 98.9 F 07/12/17 16:00 Pulse 85 07/12/17 18:42 Resp 37 07/12/17 19:53 BP 99/51 07/12/17 18:00 Pulse Ox 98 07/12/17 19:53 Intake & Output 07/12/17 07/12/17 07/13/17 06:59 18:59 06:59 Intake Total 950 700 Output Total 450 Balance 500 700 Weight (lbs) 60.101 kg 59.874 kg Intake: Intake, IV Amount 350 300 Meropenem 500 mg In 100 50 Sodium Chloride 0.9% 50 ml @ 50 mls/hr IV Q8H [facility] Rx#:[id number] Vancomycin HCl 0.75 gm In 250 250 Sodium Chloride 0.9% 250 ml @ 165 mls/hr IV Q12H [facility] Rx#:[id number] Tube Feeding 600 Other 400 Output: Urine 450 Other: # Voids 600 # Bowel Movements 2 1 Stool Characteristics Soft Soft Brown Formed Brown Green Weight Source Bedscale Bedscale Active Medications: Current Medications Acetaminophen (Tylenol 650mg/20.3ml Suspension) 650 mg GT Q6HR PRN PRN Reason: Fever > 101 Stop: 09/04/17 09:07 Last Admin: 07/11/17 15:35 Dose: 650 mg Albuterol Sulfate (Albuterol 2.5mg/3ml Neb Ud) 2.5 mg HHN Q6HRT MAI Stop: 09/05/17 00:59 Last Admin: 07/12/17 18:33 Dose: 2.5 mg Budesonide (Pulmicort) 0.5 mg HHN BIDRT MAI Stop: 09/08/17 18:59 Last Admin: 07/12/17 18:33 Dose: 0.5 mg [place] Oil/[place]ian Balsam/Trypsin (Venelex) 1 appl TP DAILY [facility] Stop: 09/05/17 08:59 Last Admin: 07/12/17 09:05 Dose: 1 appl Digoxin (Lanoxin) 0.125 mg IVP Q48HR [facility] Stop: 09/04/17 09:59 Last Admin: 07/12/17 10:22 Dose: 0.125 mg Diltiazem HCl (Cardizem) 60 mg GT Q8HR [facility] Stop: 09/04/17 12:59 Last Admin: 07/12/17 14:24 Dose: 60 mg Furosemide (Lasix) 20 mg IVP Q12HR [facility] Stop: 09/04/17 20:59 Last Admin: 07/12/17 08:44 Dose: 20 mg Meropenem 500 mg/ Sodium (Chloride) 50 mls @ 50 mls/hr IV Q8H [facility] Stop: 09/04/17 12:59 Last Infusion: 07/12/17 13:20 Dose: Infused Vancomycin HCl 0.75 gm/ Sodium (Chloride) 250 mls @ 165 mls/hr IV Q12H [facility] Stop: 09/07/17 10:59 Last Infusion: 07/12/17 11:55 Dose: Infused Insulin Aspart (Novolog Insulin Sliding Scale) 0 units SUBQ Q6HR [facility] PRN Reason: Protocol Stop: 09/04/17 11:59 Last Admin: 07/12/17 17:30 Dose: 2 units Lisinopril (Zestril) 10 mg GT Q12HR [facility] Stop: 09/04/17 20:59 Last Admin: 07/12/17 09:05 Dose: Not Given Metoclopramide HCl (Reglan) 10 mg GT Q8HR [facility] Stop: 09/04/17 12:59 Last Admin: 07/12/17 14:24 Dose: 10 mg Miscellaneous (Vancomycin Iv Per Pharmacy) 1 ea MC DAILY [facility] Stop: 09/05/17 08:59 Morphine Sulfate (Morphine) 2 mg IV Q6H PRN PRN Reason: pain Stop: 09/04/17 18:01 Last Admin: 07/12/17 14:42 Dose: 2 mg Pantoprazole Sodium (Protonix) 40 mg IVP BID [facility] Stop: 09/03/17 21:59 Last Admin: 07/12/17 17:31 Dose: 40 mg General: No acute distress Cardiovascular: Regular rate Lungs: Other (rales) Abdomen: Soft, Other (G tube/ surgical dressing), no Distended - Procedures Procedures: Procedures Procedure Code Date BYPASS STOMACH TO CUTANEOUS, OPEN APPROACH [id number] 07/05/17 EMERGENCY DEPT VISIT 30849 05/14/11 FREEING OF BOWEL ADHESION 83911 07/05/17 INTRODUCTION OF OTH THERAP SUBST INTO UP GI, PERC APPROACH [id number] 07/05/17 OTHER GROUP THERAPY 94.44 05/14/11 PLACE GASTROSTOMY TUBE 33388 07/05/17 RECREATIONAL THERAPY 93.81 05/14/11 RELEASE STOMACH, OPEN APPROACH [id number] 07/05/17 STOMACH SURGERY PROCEDURE 16967 07/05/17 Assessment/Plan - Assessment Assessment: Acute respiratory failure GI Bleed Pneumonia Left foot osteomyelitis Dysphagia 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 - Plan Plan: ICU care Frequent bronchodilator Frequest suctioning GT feeding IV antibiotics Wound care Follow up labs in am Plan of care discussed with nursing staff Nutritional Asmnt/Malnutr-PDOC - Dietary Evaluation Malnutrition Findings (Please click <Entered> for more info): Nutritional Asmnt/Malnutrition Start: 07/06/17 15: 40 Text: Status: Complete Freq: Document 07/06/17 15:55 LCHENG (Rec: 07/06/17 16:09 ANA LILIAG [email or web address]) Nutritional Asmnt/Malnutrition Patient General Information Nutritional Screening High Risk Diagnosis osteomyelitis, PNA, Gtube infection and fustula Pertinent Medical Hx/Surgical Hx no H&P at this time Subjective Information Pt had Gtube replacement today per nurse note. TPN started this afternoon. Current Diet Order/ Nutrition Support TPN D15% AA5% Lipid 20% 200ml at 50ml/hr Pertinent Medications lasix, novolog, reglan, k phos , vancomycin Pertinent Labs 07/06 K 3.2, Cr 0.4, glucose 166 , POC 172, Ca 8.0 Nutritional Hx/Data Height 1.47 m Height (Calculated Centimeters) 147.3 Current Weight (lbs) 53.07 kg Weight (Calculated Kilograms) 53.1 Weight (Calculated Grams) 71075.3 [place] Body Weight 96 Body Mass Index (BMI) 24.4 Weight Status Approriate GI Symptoms GI Symptoms None Last BM 07/05 Difficult in: None Skin Integrity/Comment: pressure area to buttocks, right foot, decubitus to left foot, reddened to right elbow Current %PO Negligible < 25% Estimated Nutritional Goals BEE in Kcals: Using Current wt Calories/Kcals/Kg 25-30 Kcals Calculated 8083-6563 Protein: Using Current wt Protein g/k-1.2 Protein Calculated 53-63 Fluid: ml 1325-1590ml (1ml/kcal) Nutritional Problem 1. Problem Problem altered nutrition related labs Etiology electrolytes imbalanced, endocrine dysfunction Signs/Symptoms: K 3.2, Cr 0.4, glucose 166, POC 172, Ca 8.0 Intervention/Recommendation Comments 1. Continue with current TPN regimen. It provides 1252kcal, 180g CHO (2.35mg/kg/min) and 60g protein, meeting 95% of calorie needs and 100% of protein needs. 2. If tube feeding needed, RD availeble for consult. 3. Monitor nutrition support, wt, labs and skin integrity 4. F/U high risk in 2 days, 5/ 3 Expected Outcomes/Goals Expected Outcomes/Goals 1. Pt to meet at least 75% of nutritional needs via nutrition support with tolerance 2. Wt stability, skin to remain intact, labs to approach WNL.
[2017-07-13] MEDS: Albuterol Nebulizer 2.5mg/3mL HHN SCH ×3 (00:07→13:03)
[2017-07-13] MEDS: Meropenem 500 MG in Sodium Chloride 0.9% 50 ML IV SCH ×2 (05:13→12:46)
[2017-07-13] MEDS: Morphine Sulfate 4 mg/mL 1mL Syr IV PRN (05:16)
[2017-07-13] MEDS: Diltiazem 30 mg Tab GT SCH ×2 (05:17→12:24)
[2017-07-13] MEDS: INSULIN ASPART SLIDING SCALE 100 UNITS/ML UNIT SUBQ SCH ×2 (05:33→14:00)
[2017-07-13 05:41] LABS: % BASOPHILS 0.5 % (0.0-2.0); % LYMPHOCYTES 18.4 % (20.0-50.0); % MONOCYTES 9.5 % (2.0-10.0); % NEUTROPHILS 69.6 % (40.0-80.0); EOSINOPHILE ABSOLUTE 0.1 Th/cmm (0.1-0.4); HEMATOCRIT 25.8 % (41.0-60); HEMOGLOBIN 8.7 gm/dL (12-16); LYMPHOCYTE ABSOLUTE 0.7 Th/cmm (1.5-3.0); MEAN CELL VOLUME 93.3 fl (81-100); MEAN CORPUSCULAR HEMOGLOBIN 31.2 pg (27.0-31.0); MEAN CORPUSCULAR HGB CONC 33.5 pg (28.0-36.0); MONOCYTE ABSOLUTE 0.4 Th/cmm (0.3-1.0); NEUTROPHILE ABSOLUTE 2.8 Th/cmm (1.8-8.0); PLATELET COUNT 180 Th/cmm (150-400); RED BLOOD COUNT 2.77 Mil/cmm (3.80-5.20); RED CELL DISTRIBUTION WIDTH 15.3 % (11.5-20.0)
[2017-07-13 05:52] LABS: ANION GAP 6.5 (7.0-16.0); BUN - UREA NITROGEN 18 mg/dL (7-25); CALCIUM SERUM 7.7 mg/dL (8.6-10.3); CARBON DIOXIDE 31.9 mEq/L (21.0-31.0); CHLORIDE 113 mEq/L (98-107); CREATININE - SERUM 0.5 mg/dL (0.6-1.2); GLUCOSE 114 mg/dL (70-105); POTASSIUM SERUM 3.4 mEq/L (3.5-5.1); SODIUM SERUM 148 mEq/L (136-145)
[2017-07-13] MEDS: Budesonide 0.5 Mg/2 mL Ud HHN SCH (07:08)
[2017-07-13] MEDS: Venelex 60gm Tube TP SCH (08:59)
--- NOTE | 2017-07-13 12:35 | Infectious Disease Prog Note ---
Infectious Disease Subjective - Review of Systems Service Date: 07/13/17 Subjective: patient remained in the ICU, No fever. on Bipap. Infectious Disease Objective - Results Result Diagrams: 07/13/17 05:15 07/13/17 05:15 Recent Labs: Laboratory Last Values WBC 4.0 Th/cmm (4.8-10.8) L 07/13/17 05:15 RBC 2.77 Mil/cmm (3.80-5.20) L 07/13/17 05:15 Hgb 8.7 gm/dL (12-16) L 07/13/17 05:15 Hct 25.8 % (41.0-60) L 07/13/17 05:15 MCV 93.3 fl (81-100) 07/13/17 05:15 MCH 31.2 pg (27.0-31.0) H 07/13/17 05:15 MCHC Differential 33.5 pg (28.0-36.0) 07/13/17 05:15 RDW 15.3 % (11.5-20.0) 07/13/17 05:15 Plt Count 180 Th/cmm (150-400) 07/13/17 05:15 MPV 10.0 fl 07/13/17 05:15 Neutrophils % 69.6 % (40.0-80.0) 07/13/17 05:15 Lymphocytes % 18.4 % (20.0-50.0) L 07/13/17 05:15 Monocytes % 9.5 % (2.0-10.0) 07/13/17 05:15 Eosinophils % 2.0 % (0.0-5.0) 07/13/17 05:15 Basophils % 0.5 % (0.0-2.0) 07/13/17 05:15 PT 10.4 SECONDS (9.5-11.5) 07/05/17 17:15 INR 1.00 (0.5-1.4) 07/05/17 17:15 PTT (Actin FS) 26.6 SECONDS (26.0-38.0) 07/05/17 17:15 Specimen Source Arterial 07/11/17 15:50 Sample Site Right Radial 07/11/17 15:50 pH 7.52 (7.35-7.45) H 07/11/17 15:50 pCO2 38.0 mmHg (35.0-45.0) 07/11/17 15:50 pO2 76.0 mmHg (80.0-100.0) L 07/11/17 15:50 HCO3 30.8 mEq/L (20.0-26.0) H 07/11/17 15:50 Base Excess 7.6 mEq/L (-3.0-3.0) H 07/11/17 15:50 O2 Saturation 96.0 % (92.0-100.0) 07/11/17 15:50 Blu Test Positive 07/11/17 15:50 Vent Rate 12 07/11/17 15:50 Inspired O2 28 07/11/17 15:50 Tidal Volume NA 07/11/17 15:50 PEEP 6 07/11/17 15:50 Pressure (ins/psv/peep) 6 07/11/17 15:50 Critical Value LZHANG 07/11/17 15:50 Sodium 148 mEq/L (136-145) H 07/13/17 05:15 Potassium 3.4 mEq/L (3.5-5.1) L 07/13/17 05:15 Chloride 113 mEq/L (98-107) H 07/13/17 05:15 Carbon Dioxide 31.9 mEq/L (21.0-31.0) H 07/13/17 05:15 Anion Gap 6.5 (7.0-16.0) L 07/13/17 05:15 BUN 18 mg/dL (7-25) 07/13/17 05:15 Creatinine 0.5 mg/dL (0.6-1.2) L 07/13/17 05:15 Est GFR ( Amer) TNP 07/13/17 05:15 Est GFR (Non-Af Amer) TNP 07/13/17 05:15 BUN/Creatinine Ratio 36.0 07/13/17 05:15 Glucose 114 mg/dL (70-105) H 07/13/17 05:15 POC Glucose 103 MG/DL (70 - 105) 07/13/17 05:30 Hemoglobin A1c % 5.0 % (4.0-6.0) 07/05/17 16:25 Whole Bld Lactic Acid 1.96 mmol/L (0.60-1.99) 07/07/17 06:15 Calcium 7.7 mg/dL (8.6-10.3) L 07/13/17 05:15 Phosphorus 3.5 mg/dL (2.5-5.0) 07/12/17 04:30 Magnesium 2.1 mg/dL (1.9-2.7) 07/12/17 04:30 Total Bilirubin 1.3 mg/dL (0.3-1.0) H 07/09/17 06:50 AST 42 U/L (13-39) H 07/09/17 06:50 ALT 45 U/L (7-52) 07/09/17 06:50 Alkaline Phosphatase 171 U/L (34-104) H 07/09/17 06:50 Total Protein 5.7 gm/dL (6.0-8.3) L 07/09/17 06:50 Albumin 2.0 gm/dL (3.7-5.3) L 07/09/17 06:50 Globulin 3.7 gm/dL 07/09/17 06:50 Albumin/Globulin Ratio 0.5 (1.0-1.8) L 07/09/17 06:50 Prealbumin 6 mg/dL (9-32) L 07/06/17 06:30 Triglycerides 97 mg/dL (<150) 07/06/17 06:30 Cholesterol 76 mg/dL (<200) 07/06/17 06:30 Vancomycin Trough 20.3 ug/mL (5-10) H 07/13/17 10:00 - Physical Exam Vitals and I&O: Vital Signs Temp 99.0 F 07/13/17 12:00 Pulse 82 07/13/17 12:24 Resp 20 07/13/17 12:00 BP 93/48 07/13/17 12:00 Pulse Ox 100 07/13/17 12:00 Intake & Output 07/12/17 07/13/17 07/13/17 18:59 06:59 18:59 Intake Total 700 1000 Output Total 600 Balance 700 400 Weight (lbs) 59.874 kg 60.872 kg Intake: Intake, IV Amount 300 300 Meropenem 500 mg In 50 50 Sodium Chloride 0.9% 50 ml @ 50 mls/hr IV Q8H [facility] Rx#:[id number] Vancomycin HCl 0.75 gm In 250 250 Sodium Chloride 0.9% 250 ml @ 165 mls/hr IV Q12H [facility] Rx#:[id number] Oral 0 Tube Feeding 600 Other 400 100 Output: Urine 600 Other: # Voids 600 # Bowel Movements 1 0 Stool Characteristics Soft Soft Formed Formed Brown Brown Green Green Weight Source Bedscale Bedscale Active Medications: Current Medications Acetaminophen (Tylenol 650mg/20.3ml Suspension) 650 mg GT Q6HR PRN PRN Reason: Fever > 101 Stop: 09/04/17 09:07 Last Admin: 07/11/17 15:35 Dose: 650 mg Albuterol Sulfate (Albuterol 2.5mg/3ml Neb Ud) 2.5 mg HHN Q6HRT [facility] Stop: 09/05/17 00:59 Last Admin: 07/13/17 06:55 Dose: 2.5 mg Budesonide (Pulmicort) 0.5 mg HHN BIDRT [facility] Stop: 09/08/17 18:59 Last Admin: 07/13/17 07:08 Dose: 0.5 mg [place] Oil/[place]est[place] Balsam/Trypsin (Venelex) 1 appl TP DAILY [facility] Stop: 09/05/17 08:59 Last Admin: 07/13/17 08:59 Dose: 1 appl Digoxin (Lanoxin) 0.125 mg IVP Q48HR [facility] Stop: 09/04/17 09:59 Last Admin: 07/12/17 10:22 Dose: 0.125 mg Diltiazem HCl (Cardizem) 60 mg GT Q8HR [facility] Stop: 09/04/17 12:59 Last Admin: 07/13/17 12:24 Dose: Not Given Furosemide (Lasix) 20 mg IVP Q12HR [facility] Stop: 09/04/17 20:59 Last Admin: 07/13/17 08:59 Dose: Not Given Meropenem 500 mg/ Sodium (Chloride) 50 mls @ 50 mls/hr IV Q8H [facility] Stop: 09/04/17 12:59 Last Admin: 07/13/17 05:13 Dose: 50 mls/hr Vancomycin HCl 0.75 gm/ Sodium (Chloride) 250 mls @ 165 mls/hr IV Q12H [facility] Stop: 09/07/17 10:59 Last Admin: 07/13/17 11:19 Dose: 165 mls/hr Insulin Aspart (Novolog Insulin Sliding Scale) 0 units SUBQ Q6HR [facility] PRN Reason: Protocol Stop: 09/04/17 11:59 Last Admin: 07/13/17 05:33 Dose: Not Given Lisinopril (Zestril) 10 mg GT Q12HR [facility] Stop: 09/04/17 20:59 Last Admin: 07/13/17 08:51 Dose: Not Given Metoclopramide HCl (Reglan) 10 mg GT Q8HR [facility] Stop: 09/04/17 12:59 Last Admin: 07/13/17 05:17 Dose: 10 mg Miscellaneous (Vancomycin Iv Per Pharmacy) 1 ea MC DAILY [facility] Stop: 09/05/17 08:59 Morphine Sulfate (Morphine) 2 mg IV Q6H PRN PRN Reason: pain Stop: 09/04/17 18:01 Last Admin: 07/13/17 05:16 Dose: 2 mg Pantoprazole Sodium (Protonix) 40 mg IVP BID [facility] Stop: 09/03/17 21:59 Last Admin: 07/13/17 08:59 Dose: 40 mg General: no acute distress, well developed, well nourished HEENT: atraumatic, normocephalic, PERRLA, EOMI, moist mucous membrane Neck: supple, no thyromegaly Cardiovascular: S1S2, regular Lungs: clear to auscultation bilaterally, clear to percussion Abdomen: soft, no tender, no distended, no mass, no hepatomegaly Extremities: other (b/l foot ulcer), no cyanosis, no clubbing Neurological: awake, alert - Procedures Procedures: Procedures Procedure Code Date BYPASS STOMACH TO CUTANEOUS, OPEN APPROACH [id number] 07/05/17 EMERGENCY DEPT VISIT 49348 05/14/11 FREEING OF BOWEL ADHESION 18576 07/05/17 INTRODUCTION OF OTH THERAP SUBST INTO UP GI, PERC APPROACH [id number] 07/05/17 OTHER GROUP THERAPY 94.44 05/14/[address] PLACE GASTROSTOMY TUBE 26977 07/05/17 RECREATIONAL THERAPY 93.81 05/14/11 RELEASE STOMACH, OPEN APPROACH [id number] 07/05/17 STOMACH SURGERY PROCEDURE 68868 07/05/17 Infectious Disease Assmt/Plan - Assessment Assessment: 1. 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 New G-tube was placed in. 2. Osteomyelitis, complicated wound of the left foot. 3. Bilateral foot ulcers. 4. UTI. 5. Up the wall cellulitis. 6. Hypertension. 7. Diabetes mellitus type 2. 8. Severe dementia. 9. COPD. 10. CHF, cardiomyopathy, atrial fibrillation. 11. Depression. 12. Schizoaffective disorder. 13. Gastroesophageal reflux disease. 14. Seizure disorder. 15. History of cataract. - Plan Plan: Continue vancomycin and meropenem. Wound care. G tube feeding as tolerated. Nutritional Asmnt/Malnutr-PDOC - Dietary Evaluation Malnutrition Findings (Please click <Entered> for more info): Nutritional Asmnt/Malnutrition Start: 07/06/17 15: 40 Text: Status: Complete Freq: Document 07/06/17 15:55 JUANIS (Rec: 07/06/17 16:09 [facility] Nutritional Asmnt/Malnutrition Patient General Information Nutritional Screening High Risk Diagnosis osteomyelitis, PNA, Gtube infection and fustula Pertinent Medical Hx/Surgical Hx no H&P at this time Subjective Information Pt had Gtube replacement today per nurse note. TPN started this afternoon. Current Diet Order/ Nutrition Support TPN D15% AA5% Lipid 20% 200ml at 50ml/hr Pertinent Medications lasix, novolog, reglan, k phos , vancomycin Pertinent Labs 07/06 K 3.2, Cr 0.4, glucose 166 , POC 172, Ca 8.0 Nutritional Hx/Data Height 1.47 m Height (Calculated Centimeters) 147.3 Current Weight (lbs) 53.07 kg Weight (Calculated Kilograms) 53.1 Weight (Calculated Grams) 67590.3 [place] Body Weight 96 Body Mass Index (BMI) 24.4 Weight Status Approriate GI Symptoms GI Symptoms None Last BM 07/05 Difficult in: None Skin Integrity/Comment: pressure area to buttocks, right foot, decubitus to left foot, reddened to right elbow Current %PO Negligible < 25% Estimated Nutritional Goals BEE in Kcals: Using Current wt Calories/Kcals/Kg 25-30 Kcals Calculated 4191-3428 Protein: Using Current wt Protein g/k-1.2 Protein Calculated 53-63 Fluid: ml 1325-1590ml (1ml/kcal) Nutritional Problem 1. Problem Problem altered nutrition related labs Etiology electrolytes imbalanced, endocrine dysfunction Signs/Symptoms: K 3.2, Cr 0.4, glucose 166, POC 172, Ca 8.0 Intervention/Recommendation Comments 1. Continue with current TPN regimen. It provides 1252kcal, 180g CHO (2.35mg/kg/min) and 60g protein, meeting 95% of calorie needs and 100% of protein needs. 2. If tube feeding needed, RD availeble for consult. 3. Monitor nutrition support, wt, labs and skin integrity 4. F/U high risk in 2 days, 5/ 3 Expected Outcomes/Goals Expected Outcomes/Goals 1. Pt to meet at least 75% of nutritional needs via nutrition support with tolerance 2. Wt stability, skin to remain intact, labs to approach WNL.
--- NOTE | 2017-07-13 15:50 | General Progress Note ---
Subjective - Review of Systems Service Date: 07/13/17 Subjective: Patient seen and examined no new concern reported per nursing staff Objective - Results Result Diagrams: 07/13/17 05:15 07/13/17 05:15 Recent Labs: Laboratory Last Values WBC 4.0 Th/cmm (4.8-10.8) L 07/13/17 05:15 RBC 2.77 Mil/cmm (3.80-5.20) L 07/13/17 05:15 Hgb 8.7 gm/dL (12-16) L 07/13/17 05:15 Hct 25.8 % (41.0-60) L 07/13/17 05:15 MCV 93.3 fl (81-100) 07/13/17 05:15 MCH 31.2 pg (27.0-31.0) H 07/13/17 05:15 MCHC Differential 33.5 pg (28.0-36.0) 07/13/17 05:15 RDW 15.3 % (11.5-20.0) 07/13/17 05:15 Plt Count 180 Th/cmm (150-400) 07/13/17 05:15 MPV 10.0 fl 07/13/17 05:15 Neutrophils % 69.6 % (40.0-80.0) 07/13/17 05:15 Lymphocytes % 18.4 % (20.0-50.0) L 07/13/17 05:15 Monocytes % 9.5 % (2.0-10.0) 07/13/17 05:15 Eosinophils % 2.0 % (0.0-5.0) 07/13/17 05:15 Basophils % 0.5 % (0.0-2.0) 07/13/17 05:15 PT 10.4 SECONDS (9.5-11.5) 07/05/17 17:15 INR 1.00 (0.5-1.4) 07/05/17 17:15 PTT (Actin FS) 26.6 SECONDS (26.0-38.0) 07/05/17 17:15 Specimen Source Arterial 07/11/17 15:50 Sample Site Right Radial 07/11/17 15:50 pH 7.52 (7.35-7.45) H 07/11/17 15:50 pCO2 38.0 mmHg (35.0-45.0) 07/11/17 15:50 pO2 76.0 mmHg (80.0-100.0) L 07/11/17 15:50 HCO3 30.8 mEq/L (20.0-26.0) H 07/11/17 15:50 Base Excess 7.6 mEq/L (-3.0-3.0) H 07/11/17 15:50 O2 Saturation 96.0 % (92.0-100.0) 07/11/17 15:50 Blu Test Positive 07/11/17 15:50 Vent Rate 12 07/11/17 15:50 Inspired O2 28 07/11/17 15:50 Tidal Volume NA 07/11/17 15:50 PEEP 6 07/11/17 15:50 Pressure (ins/psv/peep) 6 07/11/17 15:50 Critical Value LZHANG 07/11/17 15:50 Sodium 148 mEq/L (136-145) H 07/13/17 05:15 Potassium 3.4 mEq/L (3.5-5.1) L 07/13/17 05:15 Chloride 113 mEq/L (98-107) H 07/13/17 05:15 Carbon Dioxide 31.9 mEq/L (21.0-31.0) H 07/13/17 05:15 Anion Gap 6.5 (7.0-16.0) L 07/13/17 05:15 BUN 18 mg/dL (7-25) 07/13/17 05:15 Creatinine 0.5 mg/dL (0.6-1.2) L 07/13/17 05:15 Est GFR ( Amer) TNP 07/13/17 05:15 Est GFR (Non-Af Amer) TNP 07/13/17 05:15 BUN/Creatinine Ratio 36.0 07/13/17 05:15 Glucose 114 mg/dL (70-105) H 07/13/17 05:15 POC Glucose 156 MG/DL (70 - 105) H 07/13/17 15:15 Hemoglobin A1c % 5.0 % (4.0-6.0) 07/05/17 16:25 Whole Bld Lactic Acid 1.96 mmol/L (0.60-1.99) 07/07/17 06:15 Calcium 7.7 mg/dL (8.6-10.3) L 07/13/17 05:15 Phosphorus 3.5 mg/dL (2.5-5.0) 07/12/17 04:30 Magnesium 2.1 mg/dL (1.9-2.7) 07/12/17 04:30 Total Bilirubin 1.3 mg/dL (0.3-1.0) H 07/09/17 06:50 AST 42 U/L (13-39) H 07/09/17 06:50 ALT 45 U/L (7-52) 07/09/17 06:50 Alkaline Phosphatase 171 U/L (34-104) H 07/09/17 06:50 Total Protein 5.7 gm/dL (6.0-8.3) L 07/09/17 06:50 Albumin 2.0 gm/dL (3.7-5.3) L 07/09/17 06:50 Globulin 3.7 gm/dL 07/09/17 06:50 Albumin/Globulin Ratio 0.5 (1.0-1.8) L 07/09/17 06:50 Prealbumin 6 mg/dL (9-32) L 07/06/17 06:30 Triglycerides 97 mg/dL (<150) 07/06/17 06:30 Cholesterol 76 mg/dL (<200) 07/06/17 06:30 Vancomycin Trough 20.3 ug/mL (5-10) H 07/13/17 10:00 - Physical Exam Vitals and I&O: Vital Signs Temp 98.9 F 07/13/17 14:51 Pulse 78 07/13/17 15:00 Resp 20 07/13/17 15:00 BP 116/47 07/13/17 15:00 Pulse Ox 98 07/13/17 15:00 Intake & Output 07/12/17 07/13/17 07/13/17 18:59 06:59 18:59 Intake Total 700 1050 300 Output Total 600 Balance 700 450 300 Weight (lbs) 59.874 kg 60.872 kg Intake: Intake, IV Amount 300 350 300 Meropenem 500 mg In 50 100 50 Sodium Chloride 0.9% 50 ml @ 50 mls/hr IV Q8H [facility] Rx#:[id number] Vancomycin HCl 0.75 gm In 250 250 250 Sodium Chloride 0.9% 250 ml @ 165 mls/hr IV Q12H [facility] Rx#:[id number] Oral 0 Tube Feeding 600 Other 400 100 Output: Urine 600 Other: # Voids 600 # Bowel Movements 1 0 Stool Characteristics Soft Soft Formed Formed Brown Brown Green Green Weight Source Bedscale Bedscale Active Medications: Current Medications Acetaminophen (Tylenol 650mg/20.3ml Suspension) 650 mg GT Q6HR PRN PRN Reason: Fever > 101 Stop: 09/04/17 09:07 Last Admin: 07/13/17 12:45 Dose: 650 mg Albuterol Sulfate (Albuterol 2.5mg/3ml Neb Ud) 2.5 mg HHN Q6HRT [facility] Stop: 09/05/17 00:59 Last Admin: 07/13/17 13:03 Dose: 2.5 mg Budesonide (Pulmicort) 0.5 mg HHN BIDRT [facility] Stop: 09/08/17 18:59 Last Admin: 07/13/17 07:08 Dose: 0.5 mg Hurt Oil/[place] Balsam/Trypsin (Venelex) 1 appl TP DAILY [facility] Stop: 09/05/17 08:59 Last Admin: 07/13/17 08:59 Dose: 1 appl Digoxin (Lanoxin) 0.125 mg IVP Q48HR [facility] Stop: 09/04/17 09:59 Last Admin: 07/12/17 10:22 Dose: 0.125 mg Diltiazem HCl (Cardizem) 60 mg GT Q8HR [facility] Stop: 09/04/17 12:59 Last Admin: 07/13/17 12:24 Dose: Not Given Furosemide (Lasix) 20 mg IVP Q12HR [facility] Stop: 09/04/17 20:59 Last Admin: 07/13/17 08:59 Dose: Not Given Meropenem 500 mg/ Sodium (Chloride) 50 mls @ 50 mls/hr IV Q8H [facility] Stop: 09/04/17 12:59 Last Infusion: 07/13/17 13:45 Dose: Infused Vancomycin HCl 0.75 gm/ Sodium (Chloride) 250 mls @ 165 mls/hr IV Q12H [facility] Stop: 09/07/17 10:59 Last Infusion: 07/13/17 12:50 Dose: Infused Insulin Aspart (Novolog Insulin Sliding Scale) 0 units SUBQ Q6HR [facility] PRN Reason: Protocol Stop: 09/04/17 11:59 Last Admin: 07/13/17 05:33 Dose: Not Given Lisinopril (Zestril) 10 mg GT Q12HR [facility] Stop: 09/04/17 20:59 Last Admin: 07/13/17 08:51 Dose: Not Given Metoclopramide HCl (Reglan) 10 mg GT Q8HR [facility] Stop: 09/04/17 12:59 Last Admin: 07/13/17 12:46 Dose: 10 mg Miscellaneous (Vancomycin Iv Per Pharmacy) 1 ea MC DAILY [facility] Stop: 09/05/17 08:59 Morphine Sulfate (Morphine) 2 mg IV Q6H PRN PRN Reason: pain Stop: 09/04/17 18:01 Last Admin: 07/13/17 05:16 Dose: 2 mg Pantoprazole Sodium (Protonix) 40 mg IVP BID [facility] Stop: 09/03/17 21:59 Last Admin: 07/13/17 08:59 Dose: 40 mg General: No acute distress Cardiovascular: Regular rate Lungs: Other (rales) Abdomen: Soft, Other (G tube/ surgical dressing), no Distended - Procedures Procedures: Procedures Procedure Code Date BYPASS STOMACH TO CUTANEOUS, OPEN APPROACH [id number] 07/05/17 EMERGENCY DEPT VISIT 17240 05/14/11 FREEING OF BOWEL ADHESION 63802 07/05/17 INTRODUCTION OF OTH THERAP SUBST INTO UP GI, PERC APPROACH [id number] 07/05/17 OTHER GROUP THERAPY 94.44 05/14/11 PLACE GASTROSTOMY TUBE 21107 07/05/17 RECREATIONAL THERAPY 93.81 05/14/11 RELEASE STOMACH, OPEN APPROACH [id number] 07/05/17 STOMACH SURGERY PROCEDURE 72414 07/05/17 Assessment/Plan - Assessment Assessment: Acute respiratory failure GI Bleed Pneumonia Left foot osteomyelitis Dysphagia 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 - Plan Plan: ICU care Frequent bronchodilator Frequest suctioning GT feeding IV antibiotics Wound care Follow up labs in am Plan of care discussed with nursing staff DC plan back to [facility] today Nutritional Asmnt/Malnutr-PDOC - Dietary Evaluation Malnutrition Findings (Please click <Entered> for more info): Nutritional Asmnt/Malnutrition Start: 07/06/17 15: 40 Text: Status: Complete Freq: Document 07/06/17 15:55 LCHEN (Rec: 07/06/17 16:09 LCHENG [id number]) Nutritional Asmnt/Malnutrition Patient General Information Nutritional Screening High Risk Diagnosis osteomyelitis, PNA, Gtube infection and fustula Pertinent Medical Hx/Surgical Hx no H&P at this time Subjective Information Pt had Gtube replacement today per nurse note. TPN started this afternoon. Current Diet Order/ Nutrition Support TPN D15% AA5% Lipid 20% 200ml at 50ml/hr Pertinent Medications lasix, novolog, reglan, k phos , vancomycin Pertinent Labs 07/06 K 3.2, Cr 0.4, glucose 166 , POC 172, Ca 8.0 Nutritional Hx/Data Height 1.47 m Height (Calculated Centimeters) 147.3 Current Weight (lbs) 53.07 kg Weight (Calculated Kilograms) 53.1 Weight (Calculated Grams) 49396.3 [place] Body Weight 96 Body Mass Index (BMI) 24.4 Weight Status Approriate GI Symptoms GI Symptoms None Last BM 07/05 Difficult in: None Skin Integrity/Comment: pressure area to buttocks, right foot, decubitus to left foot, reddened to right elbow Current %PO Negligible < 25% Estimated Nutritional Goals BEE in Kcals: Using Current wt Calories/Kcals/Kg 25-30 Kcals Calculated 5417-9269 Protein: Using Current wt Protein g/k-1.2 Protein Calculated 53-63 Fluid: ml 1325-1590ml (1ml/kcal) Nutritional Problem 1. Problem Problem altered nutrition related labs Etiology electrolytes imbalanced, endocrine dysfunction Signs/Symptoms: K 3.2, Cr 0.4, glucose 166, POC 172, Ca 8.0 Intervention/Recommendation Comments 1. Continue with current TPN regimen. It provides 1252kcal, 180g CHO (2.35mg/kg/min) and 60g protein, meeting 95% of calorie needs and 100% of protein needs. 2. If tube feeding needed, RD availeble for consult. 3. Monitor nutrition support, wt, labs and skin integrity 4. F/U high risk in 2 days, / 3 Expected Outcomes/Goals Expected Outcomes/Goals 1. Pt to meet at least 75% of nutritional needs via nutrition support with tolerance 2. Wt stability, skin to remain intact, labs to approach WNL.
== END 2017-07-13 17:55 | DRG 356 ==
LOC: TELE 15:05 → UNDODISIN 07-06 18:05 → TELE 07-07 21:52 → ICU 07-10 14:55
PROVIDERS: ADMIT Internal Medicine Infectious Disease; ATTEND Internal Medicine Infectious Disease
PROC: 0W3F0ZZ Control Bleeding in Abdominal Wall, Open Approach (ICD-10-PCS; principal; 2017-07-06)
PROC: 0D20XUZ Change Feeding Device in Upper Intestinal Tract, External Approach (ICD-10-PCS; 2017-07-06)
PROC: 5A09457 Assistance with Respiratory Ventilation, 24-96 Consecutive Hours, Continuous Positive Airway Pressure (ICD-10-PCS; 2017-07-11)
DX: K94.21 Gastrostomy hemorrhage (principal); J69.0 Pneumonitis due to inhalation of food and vomit; A41.9 Sepsis, unspecified organism; J96.91 Respiratory failure, unspecified with hypoxia; N39.0 Urinary tract infection, site not specified; I42.9 Cardiomyopathy, unspecified; M86.8X7 Other osteomyelitis, ankle and foot; I50.22 Chronic systolic (congestive) heart failure; L03.311 Cellulitis of abdominal wall; B95.62 Methicillin resistant Staphylococcus aureus infection as the cause of diseases classified elsewhere; B96.20 Unspecified Escherichia coli [E. coli] as the cause of diseases classified elsewhere; E11.9 Type 2 diabetes mellitus without complications; F03.90 Unspecified dementia, unspecified severity, without behavioral disturbance, psychotic disturbance, mood disturbance, and anxiety; F25.9 Schizoaffective disorder, unspecified; K21.9 Gastro-esophageal reflux disease without esophagitis; G40.909 Epilepsy, unspecified, not intractable, without status epilepticus; H26.9 Unspecified cataract; I11.0 Hypertensive heart disease with heart failure; E78.5 Hyperlipidemia, unspecified; E11.69 Type 2 diabetes mellitus with other specified complication; F32.9 Major depressive disorder, single episode, unspecified; E11.621 Type 2 diabetes mellitus with foot ulcer; I48.2 Chronic atrial fibrillation; E11.51 Type 2 diabetes mellitus with diabetic peripheral angiopathy without gangrene; Y83.8 Other surgical procedures as the cause of abnormal reaction of the patient, or of later complication, without mention of misadventure at the time of the procedure; Y92.89 Other specified places as the place of occurrence of the external cause; Z74.01 Bed confinement status
CPT/HCPCS: 36415-UA; 36600-90; 71045-TC; 80048-TC; 80053-TC; 80202-TC; 82465-TC; 82803-TC; 82948-90; 83036-90; 83605; 83735-TC; 84100-TC; 84134-90; 84478-TC; 85007-TC; 85025-TC; 85027-TC; 85610-TC; 90799; 93005; 94640; 94660; 94760; 96372; C9113; J1160; J1815; J1940; J1956; J2185; J2270; J2704; J2710; J3370; J3475; J3480; J7030; J7613; X6598; Z7610